=== PATIENT | male | born 1970 | race Hispanic/Latino ===

== ENCOUNTER 2018-12-31 19:12 | Emergency (ER) | payer BC ==
[2018-12-31 20:11] LABS: Absolute Lymphocytes (CBC) 1.1 K/uL (0.7-4.9); Basophils % 0.3 % (0-1.3); Eosinophils % 0.9 % (0-4.4); Hematocrit 50.4 % (39.6-49.0); Lymphocytes % 15.8 % (15.3-44.8); MPV 9.1 fL (7.6-11.3); Monocytes % 6.7 % (3.3-12.3); RBC Red Blood Cell Count 5.56 M/uL (4.33-5.43)
[2018-12-31 20:12] LABS: Protime INR 1.03
[2018-12-31 20:29] LABS: ALT/SGPT 29 U/L (12-78); AST/SGOT 12 U/L (15-37); Albumin 3.5 g/dL (3.4-5.0); Alkaline Phosphatase 77 U/L (45-117); BUN Blood Urea Nitrogen 14 mg/dL (7-18); Bicarbonate 31 mmol/L (21-32); Bilirubin Direct 0.1 mg/dL (0-0.2); Bilirubin Total 0.5 mg/dL (0.2-1.0); Glucose Level 191 mg/dL (74-106); Magnesium 2.5 mg/dL (1.8-2.4); NT PRO-BNP 14 pg/mL (<125); Potassium 3.6 mmol/L (3.5-5.1); Protein, Total 6.9 g/dL (6.4-8.2); Sodium Level 146 mmol/L (136-145); Troponin (Emerg Dept Use Only) < 0.02 ng/mL (0.0-0.045)
--- NOTE | 2018-12-31 20:47 | RAD REPORT ---
EXAM DESCRIPTION: RAD - Chest Single View - 12/31/2018 8:04 pm CLINICAL HISTORY: Chest pain COMPARISON: March 2015 TECHNIQUE: AP portable chest image was obtained 1956 hours . FINDINGS: Low lung volumes are noted. This accentuates baseline interstitial pattern. No peripheral mass or consolidation. Heart and vasculature are normal. No measurable pleural effusion and no pneumo thorax. No acute bony abnormality seen. No acute aortic findings suspected. IMPRESSION: Limited shallow inspiration film not substantially different from comparison. Shallow inspiration and baseline lung disease could mask early interstitial edema or infiltrate.
[2018-12-31] MEDS ORDERED: NA CHLORIDE 0.9% 1,000 ML ONE (21:41)
[2018-12-31] MEDS ORDERED: ASPIRIN 81 MG CHEWABLE TABLET ONE (21:41)
--- NOTE | 2018-12-31 23:29 | EDPHYS ---
Physician Documentation [facility] Name: Bello Elkins Age: 48 yrs Sex: Male : 1970 Arrival Date: 12/31/2018 Time: 19:16 Bed 19 Private MD: Hosea Ayers V ED Physician Hayes Robertson HPI: 12/31 20:15 This 48 yrs old Male presents to ER via Ambulatory with complaints of Chest cp Pain, Palpitations, Arm Pain. 20:15 The patient or guardian reports chest pain that is located primarily in the anterior cp chest wall, left. 20:15 Onset: past few months. The pain does not radiate. Associated signs and symptoms: cp Pertinent positives: palpitations, Pertinent negatives: abdominal pain, cough, lower extremity pain, lower extremity swelling, shortness of breath, syncope, vomiting. 20:15 The chest pain is described as aching. Duration: The patient or guardian reports cp multiple episodes, that are intermittent, with no pattern. 20:15 Modifying factors: The symptoms are alleviated by nothing. the symptoms are aggravated cp by nothing. Severity of pain: in the emergency department the pain is unchanged despite home interventions. Historical: - Allergies: 19:22 No Known Allergies; la1 - PMHx: 19:22 GERD; Hernia; la1 - Immunization history:: Adult Immunizations up to date. - Social history:: Smoking status: Patient/guardian denies using tobacco. - Ebola Screening: : No symptoms or risks identified at this time. ROS: 20:20 Constitutional: Negative for body aches, chills, fever, poor PO intake. cp 20:20 Eyes: Negative for injury, pain, redness, and discharge. cp 20:20 ENT: Negative for drainage from ear(s), ear pain, sore throat, difficulty swallowing, difficulty handling secretions. 20:20 Cardiovascular: Positive for chest pain, palpitations, Negative for edema. 20:20 Respiratory: Negative for cough, shortness of breath, wheezing. 20:20 Abdomen/GI: Negative for abdominal pain, nausea, vomiting, and diarrhea, black/tarry stool, rectal bleeding. 20:20 Back: Negative for pain at rest, pain with movement, radiated pain. 20:20 : Negative for urinary symptoms. 20:20 Skin: Negative for rash. 20:20 Neuro: Negative for altered mental status, dizziness, headache, syncope, weakness. 20:20 All other systems are negative. Exam: 19:30 ECG was reviewed by the Attending Physician. cp 20:25 Constitutional: The patient appears in no acute distress, alert, awake, comfortable, cp non-diaphoretic, non-toxic, well developed, well nourished. 20:25 Head/Face: Normocephalic, atraumatic. Eyes: Pupils equal round and reactive to light, cp extra-ocular motions intact. Lids and lashes normal. Conjunctiva and sclera are non-icteric and not injected. Cornea within normal limits. Periorbital areas with no swelling, redness, or edema. ENT: Nares patent. No nasal discharge, no septal abnormalities noted. Tympanic membranes are normal and external auditory canals are clear. Oropharynx with no redness, swelling, or masses, exudates, or evidence of obstruction, uvula midline. Mucous membranes moist. Chest/axilla: Normal chest wall appearance and motion. Nontender with no deformity. No lesions are appreciated. Cardiovascular: Regular rate and rhythm with a normal S1 and S2. No gallops, murmurs, or rubs. Normal PMI, no JVD. No pulse deficits. Respiratory: Lungs have equal breath sounds bilaterally, clear to auscultation and percussion. No rales, rhonchi or wheezes noted. No increased work of breathing, no retractions or nasal flaring. Abdomen/GI: Soft, non-tender, with normal bowel sounds. No distension or tympany. No guarding or rebound. No evidence of tenderness throughout. Back: No spinal tenderness. No costovertebral tenderness. Full range of motion. Neuro: Awake and alert, GCS 15, oriented to person, place, time, and situation. Cranial nerves II-XII grossly intact. Motor strength 5/5 in all extremities. Sensory grossly intact. Cerebellar exam normal. Normal gait. 20:25 Skin: no rash present. 23:25 ECG was reviewed by the Attending Physician. cp Vital Signs: 19:22 BP 134 / 100; Pulse 97; Resp 16; Temp 98.1; Pulse Ox 98% on R/A; Weight 81.65 kg; la1 Height 5 ft. 11 in. (180.34 cm); 20:30 BP 123 / 89; Pulse 90; Resp 16; Pulse Ox 99% ; rr5 21:30 BP 134 / 84; Pulse 71; Resp 17; Temp 98.2; Pulse Ox 99% ; rr5 22:15 BP 131 / 80; Pulse 75; Resp 16; Pulse Ox 99% ; Pain 2/10; rr5 23:55 BP 129 / 85; Pulse 76; Resp 17; Temp 98.1; Pulse Ox 99% ; Pain 0/10; tl1 19:22 Body Mass Index 25.10 (81.65 kg, 180.34 cm) la1 MDM: 19:55 Patient medically screened. cp 23:25 The patient was given aspirin in the Emergency Department. cp 23:25 Differential diagnosis: abnormal EKG, acute myocardial infarction, acute pericarditis, cp pleurisy, pneumonia, pneumothorax, pulmonary embolus, stable angina, thoracic aortic disection, unstable angina. Data reviewed: vital signs, nurses notes, lab test result(s), EKG, radiologic studies, plain films. 12/31 19:21 Order name: Basic Metabolic Panel; Complete Time: 21:13 w 12/31 21:13 Interpretation: Normal except: NA 146; CL 110; GLUC 191; GFR 76. cp 12/31 19:21 Order name: CBC with Diff; Complete Time: 21:13 snw 12/31 19:21 Order name: LFT's; Complete Time: 21:13 snw 12/31 19:21 Order name: Magnesium; Complete Time: 21:13 snw 12/31 19:21 Order name: NT PRO-BNP; Complete Time: 21:13 snw 12/31 19:21 Order name: PT-INR; Complete Time: 21:13 w 12/31 19:21 Order name: Troponin (emerg Dept Use Only); Complete Time: 21:13 snw 12/31 19:21 Order name: XRAY Chest (1 view); Complete Time: 21:13 snw 12/31 19:21 Order name: EKG; Complete Time: 19:23 snw 12/31 19:21 Order name: Cardiac monitoring; Complete Time: 19:38 snw 12/31 22:32 Order name: EKG; Complete Time: 22:33 cp 12/31 22:32 Order name: Troponin I; Complete Time: 23:24 cp 12/31 19:21 Order name: EKG - Nurse/Tech; Complete Time: 19:38 snw 12/31 19:21 Order name: IV Saline Lock; Complete Time: 20:06 snw 12/31 19:21 Order name: Labs collected and sent; Complete Time: 20:06 snw 12/31 19:21 Order name: O2 Per Protocol; Complete Time: 20:06 snw 12/31 19:21 Order name: O2 Sat Monitoring; Complete Time: 20:06 snw 12/31 22:32 Order name: EKG - Nurse/Tech; Complete Time: 23:57 cp EC:30 Rate is 97 beats/min. Rhythm is regular. [place] interval is normal. QRS interval is normal. cp QT interval is normal. Interpreted by me. Reviewed by me. 23:25 Rate is 72 beats/min. Rhythm is regular. [place] interval is normal. QRS interval is normal. cp QT interval is normal. T waves are Inverted in lead III. Interpreted by me. Reviewed by me. Administered Medications: 21:40 Drug: NS 0.9% 1000 ml Route: IV; Rate: 1 bolus; Site: left forearm; rr5 23:54 Follow up: IV Status: Completed infusion; IV Intake: 1000ml tl1 21:41 Drug: Aspirin Chewable Tablet 324 mg Route: PO; rr5 23:55 Follow up: Response: No adverse reaction; No change in condition tl1 Disposition: 01/01 04:02 Co-signature as Attending Physician, Hayes Robertson MD. Disposition: 12/31/18 23:28 Discharged to Home. Impression: Chest pain, unspecified, Palpitations. - Condition is Stable. - Discharge Instructions: Nonspecific Chest Pain, Palpitations, Aspirin and Your Heart. - Medication Reconciliation Form, Thank You Letter, Antibiotic Education, Prescription Opioid Use form. - Follow up: Vicente Siu MD; When: 2 - 3 days; Reason: Recheck today's complaints. - Problem is an ongoing problem. - Symptoms have improved. Signatures: Dispatcher [employer] EDMS Yelitza Wright FNP-C DIRECTORY CLERK-Csnw Julien Al RN RN la1 Monique Hernández RN RN tl1 Swapnil Leon, PA PA Hayes Robertson MD MD Ryan Souza RN RN rr5 Corrections: (The following items were deleted from the chart) 12/31 23:57 23:28 12/31/2018 23:28 Discharged to Home. Impression: Chest pain, unspecified; tl1 Palpitations. Condition is Stable. Forms are Medication Reconciliation Form, Thank You Letter, Antibiotic Education, Prescription Opioid Use. Follow up: Vicente Siu; When: 2 - 3 days; Reason: Recheck today's complaints. Problem is an ongoing problem. Symptoms have improved. cp
--- NOTE | 2018-12-31 23:29 | ER ---
Nurse's Notes [facility] Name: Bello Elkins Age: 48 yrs Sex: Male : 1970 Arrival Date: 12/31/2018 Time: 19:16 Bed 19 Private MD: Hosea Ayers V Diagnosis: Chest pain, unspecified;Palpitations Presentation: 12/31 19:21 Presenting complaint: Patient states: Chest pain for the last few months, increasing in la1 severity in the last couple weeks. Transition of care: patient was not received from another setting of care. Onset of symptoms was December 31, 2018. Risk Assessment: Do you want to hurt yourself or someone else? Patient reports no desire to harm self or others. Initial Sepsis Screen: Does the patient meet any 2 criteria? No. Patient's initial sepsis screen is negative. Does the patient have a suspected source of infection? No. Patient's initial sepsis screen is negative. Care prior to arrival: None. 19:21 Method Of Arrival: Ambulatory la1 19:21 Acuity: VEENA 3 la1 Historical: - Allergies: 19:22 No Known Allergies; la1 - PMHx: 19:22 GERD; Hernia; la1 - Immunization history:: Adult Immunizations up to date. - Social history:: Smoking status: Patient/guardian denies using tobacco. - Ebola Screening: : No symptoms or risks identified at this time. Screenin:30 Abuse screen: Denies threats or abuse. Denies injuries from another. Nutritional rr5 screening: No deficits noted. Tuberculosis screening: No symptoms or risk factors identified. Fall Risk IV access (20 points). Total Kovacs Fall Scale indicates No Risk (0-24 pts). Assessment: 19:30 General: Appears in no apparent distress. uncomfortable, Behavior is calm, cooperative, rr5 appropriate for age. Pain: Complains of pain in left chest Pain does not radiate. Pain currently is 5 out of 10 on a pain scale. Quality of pain is described as aching, Pain began gradually, Is intermittent. 19:30 Neuro: Level of Consciousness is awake, alert, obeys commands, Oriented to person, rr5 place, time, situation, Appropriate for age. Cardiovascular: Reports chest pain, palpitations, Capillary refill < 3 seconds Patient's skin is warm and dry. Respiratory: Airway is patent Respiratory effort is even, unlabored, Respiratory pattern is regular, symmetrical. GI: No signs and/or symptoms were reported involving the gastrointestinal system. : No signs and/or symptoms were reported regarding the genitourinary system. EENT: No signs and/or symptoms were reported regarding the EENT system. Derm: Skin is intact, Skin temperature is warm. Musculoskeletal: Circulation, motion, and sensation intact. Capillary refill < 3 seconds, Range of motion: intact in all extremities. 20:25 Reassessment: Patient appears in no apparent distress at this time. Patient and/or rr5 family updated on plan of care and expected duration. Pain level reassessed. Patient is alert, oriented x 3, equal unlabored respirations, skin warm/dry/pink. awaiting for results. 21:25 Reassessment: Patient appears in no apparent distress at this time. Patient and/or rr5 family updated on plan of care and expected duration. Pain level reassessed. Patient is alert, oriented x 3, equal unlabored respirations, skin warm/dry/pink. ED provider ordered medications and he spoke to patient and tower erector for the plan of care. 22:30 Reassessment: Patient appears in no apparent distress at this time. Patient and/or rr5 family updated on plan of care and expected duration. Pain level reassessed. Patient is alert, oriented x 3, equal unlabored respirations, skin warm/dry/pink. awaiting for review. Patient states feeling better. Patient states symptoms have improved. 23:30 Reassessment: Patient and/or family updated on plan of care and expected duration. Pain cr4 level reassessed. Patient is alert, oriented x 3, equal unlabored respirations, skin warm/dry/pink. Patient states feeling better. Vital Signs: 19:22 BP 134 / 100; Pulse 97; Resp 16; Temp 98.1; Pulse Ox 98% on R/A; Weight 81.65 kg; la1 Height 5 ft. 11 in. (180.34 cm); 20:30 BP 123 / 89; Pulse 90; Resp 16; Pulse Ox 99% ; rr5 21:30 BP 134 / 84; Pulse 71; Resp 17; Temp 98.2; Pulse Ox 99% ; rr5 22:15 BP 131 / 80; Pulse 75; Resp 16; Pulse Ox 99% ; Pain 2/10; rr5 23:55 BP 129 / 85; Pulse 76; Resp 17; Temp 98.1; Pulse Ox 99% ; Pain 0/10; tl1 19:22 Body Mass Index 25.10 (81.65 kg, 180.34 cm) la1 ED Course: 19:16 Patient arrived in ED. mr 19:16 Hosea Ayers MD is Private Physician. mr 19:21 Arm band placed on left wrist. EKG completed in triage. Results shown to MD. la1 19:21 Patient has correct armband on for positive identification. Placed in gown. Bed in low tl1 position. Side rails up X 1. Adult w/ patient. quality assurance monitor final on. Pulse ox on. NIBP on. 19:22 Triage completed. la1 19:33 Swapnil Leon PA is PHCP. cp 19:34 Hayes Robertson MD is Attending Physician. cp 19:37 Ryan Souza, WALE is Primary Nurse. rr5 19:55 Inserted saline lock: 20 gauge in left forearm, using aseptic technique. ,using aseptic rr5 technique. inserted by computer system technician meno Blood collected. 19:55 No provider procedures requiring assistance completed. Patient maintains SpO2 rr5 saturation greater than 95% on room air. 20:04 XRAY Chest (1 view) In Process Unspecified. EDMS 23:27 Vicente Siu MD is Referral Physician. cp 23:53 IV discontinued, intact, bleeding controlled, No redness/swelling at site. Pressure tl1 dressing applied. Administered Medications: 21:40 Drug: NS 0.9% 1000 ml Route: IV; Rate: 1 bolus; Site: left forearm; rr5 23:54 Follow up: IV Status: Completed infusion; IV Intake: 1000ml tl1 21:41 Drug: Aspirin Chewable Tablet 324 mg Route: PO; rr5 23:55 Follow up: Response: No adverse reaction; No change in condition tl1 Intake: 23:54 IV: 1000ml; Total: 1000ml. tl1 Outcome: 23:28 Discharge ordered by . cp 23:53 Discharged to home ambulatory, with family. tl1 23:53 Condition: good 23:53 Discharge instructions given to patient, family, Instructed on discharge instructions, follow up and referral plans. Demonstrated understanding of instructions, follow-up care. 23:57 Patient left the ED. tl1 Signatures: Dispatcher [employer] Cherise Gallegos mr RamosRosalie, RN RN cr4 Julien Al RN RN la1 Monique Hernández, RN RN tl1 Swapnil Leon PA PA cp Roque, Raymond, RN RN rr5
--- NOTE | 2019-01-01 09:57 | EKG ---
Test Date: 2018-12-31 Test Time: 23:20:09 Mail Clerk: WILLIE MEASUREMENT RESULTS: Intervals: Rate: 72 RI: 198 QRSD: 92 QT: 378 QTc: 413 [place]: P: 21 RI: 198 QRS: -17 T: 7 INTERPRETIVE STATEMENTS: Normal sinus rhythm Minimal voltage criteria for LVH, may be normal variant Borderline ECG Compared to ECG 12/31/2018 19:23:44 Left ventricular hypertrophy now present Electronically Signed On 01-01-19 09:56:14 CDT by Vicente Siu
--- NOTE | 2019-01-01 09:58 | EKG ---
Test Date: 2018-12-31 Test Time: 19:23:44 Senior Sharepoint Architect: JUAN RAMON MEASUREMENT RESULTS: Intervals: Rate: 97 FL: 186 QRSD: 96 QT: 354 QTc: 449 [place]: P: 27 FL: 186 QRS: -21 T: 12 INTERPRETIVE STATEMENTS: Normal sinus rhythm Normal ECG Compared to ECG 04/26/1996 17:51:00 No significant changes Electronically Signed On 01-01-19 09:56:52 CDT by Vicente Siu
== END 2018-12-31 23:57 | disposition home or self-care (01) ==
LOC: ER 19:12
DX: R00.2 Palpitations (principal)
CPT/HCPCS: 36415; 71045; 80048; 80076; 83735; 83880; 84484; 85025; 85610; 93005; 96360; 96361; 99285; J7030

== ENCOUNTER 2020-03-12 21:33 | Emergency (ER) | payer BC, SELFPAY ==
[2020-03-12 22:46] LABS: Absolute Lymphocytes (CBC) 1.2 K/uL (0.7-4.9); Basophils % 0.4 % (0-1.3); Hematocrit 45.1 % (39.6-49.0); Lymphocytes % 17.7 % (15.3-44.8); MPV 9.6 fL (7.6-11.3); RBC Red Blood Cell Count 5.11 M/uL (4.33-5.43)
[2020-03-12 22:57] LABS: Potassium 3.4 mmol/L (3.5-5.1)
[2020-03-12 23:45] LABS: Urine Blood 2+ (NEG); Urine Glucose TRACE (NEG); Urine Protein NEGATIVE (NEG); Urine Specific Gravity 1.025 (1.005-1.030); Urine pH 5.5 (5.0-7.0)
--- NOTE | 2020-03-12 23:46 | ER ---
Nurse's Notes [facility] Name: Bello Elkins Age: 49 yrs Sex: Male : 1970 Arrival Date: 03/12/2020 Time: 21:33 Bed 24 Private MD: Diagnosis: Hydronephrosis with renal and ureteral calculous obstruction;Type 2 diabetes mellitus with hyperglycemia Presentation: 03/12 21:52 Chief complaint: Patient states: Left lower back pain since Thursday. No trauma or ll1 falls. Denies urinary problems. Coronavirus screen: Client denies travel out of the [place] in the last 14 days. At this time, the client does not indicate any symptoms associated with coronavirus-19. Ebola Screen: Patient denies travel to an Ebola-affected area in the 21 days before illness onset. Initial Sepsis Screen: Does the patient meet any 2 criteria? HR > 90 bpm. Yes. Risk Assessment: Do you want to hurt yourself or someone else? Patient reports no desire to harm self or others. Onset of symptoms was March 10, 2020. 21:52 Method Of Arrival: Ambulatory 1 21:52 Acuity: VEENA 3 bb 22:11 Initial Sepsis Screen: Does the patient have a suspected source of infection? No. bb Patient's initial sepsis screen is negative. Historical: - Allergies: 21:54 No Known Allergies; ll1 - PMHx: 21:54 GERD; Hernia; ll1 - Immunization history:: Flu vaccine is not up to date. - Social history:: Smoking status: Patient denies any tobacco usage or history of. Screenin:09 Abuse screen: Denies threats or abuse. Nutritional screening: No deficits noted. bb Tuberculosis screening: No symptoms or risk factors identified. Fall Risk None identified. Assessment: 22:09 General: Appears in no apparent distress. uncomfortable, Behavior is calm, cooperative. bb Pain: Complains of pain in left flank. Neuro: Level of Consciousness is awake, alert, obeys commands, Oriented to person, place, time, situation. Cardiovascular: No deficits noted. Respiratory: Respiratory effort is even, unlabored, Respiratory pattern is regular. GI: Reports left flank pain. : Denies burning with urination, inability to void. Derm: Skin is pink, warm \T\ dry. Musculoskeletal: Circulation, motion, and sensation intact. 22:30 Reassessment: pt to CT via wheelchair accompanied by voice intercept technician. bb 22:53 Reassessment: Patient is alert, oriented x 3, equal unlabored respirations, skin bb warm/dry/pink. pt states pain is manageable he does not have anyone to pick him up. 03/13 00:05 Reassessment: Patient is alert, oriented x 3, equal unlabored respirations, skin bb warm/dry/pink. pt states pain is tolerable 3/10 verbalized understanding of and agrees to plan of care discharge instructions given pt ambulated with steady gait to exit. Vital Signs: 03/12 21:52 BP 148 / 103; Pulse 100; Resp 18; Temp 98.1; Pulse Ox 97% ; Pain 10/10; ll1 22:54 BP 154 / 98; Pulse 101; Resp 16 S; Pulse Ox 97% on R/A; Pain 6/10; bb 23:59 BP 137 / 97; Pulse 98; Resp 17; Temp 98.8; Pulse Ox 98% on R/A; Pain 2/10; ar5 ED Course: 21:33 Patient arrived in ED. cl3 21:54 Triage completed. ll1 21:54 Arm band placed on Patient placed in an exam room, on a stretcher. ll1 21:56 Sean Rubio PA is PHCP. jr8 21:56 Asaf Shirley MD is Attending Physician. jr8 22:09 Dana Martin, WALE is Primary Nurse. bb 22:09 Patient has correct armband on for positive identification. Placed in gown. Bed in low bb position. Call light in reach. Side rails up X 1. Pulse ox on. NIBP on. Warm blanket given. 22:10 Urine collected: clean catch specimen, clear. ar5 22:26 Inserted saline lock: 20 gauge in right forearm, using aseptic technique. Blood ar5 collected. 23:01 CT Stone Protocol In Process Unspecified. EDMS 23:45 Bello Cordova MD is Referral Physician. jr8 23:45 Hosea Ayers MD is Referral Physician. jr8 03/13 00:06 No provider procedures requiring assistance completed. IV discontinued, intact, bb bleeding controlled, No redness/swelling at site. Pressure dressing applied. Administered Medications: 03/12 23:55 Drug: TORadol - Ketorolac 15 mg Route: IVP; Site: right forearm; bb 03/13 00:05 Follow up: Response: No adverse reaction bb Outcome: 03/12 23:46 Discharge ordered by MD. pisano 03/13 00:06 Discharged to home ambulatory. bb Condition: stable Discharge instructions given to patient, Instructed on discharge instructions, follow up and referral plans. medication usage, Demonstrated understanding of instructions, follow-up care, medications, Prescriptions given X 4. 00:07 Patient left the ED. bb Signatures: Dispatcher [employer] EDDana Alfonso RN RN bb Sean Rubio PA PA jr8 Mary Ann Deshpande ar5 Francesca Giraldo cl3 Brannon Giraldo RN RN ll1 Corrections: (The following items were deleted from the chart) 03/12 22:14 21:52 Acuity: VEENA 4 ll1 bb 22:28 22:27 Urine collected: clean catch specimen, clear, ar5 ar5
--- NOTE | 2020-03-12 23:46 | EDPHYS ---
Physician Documentation [facility] Name: Bello Elkins Age: 49 yrs Sex: Male : 1970 Arrival Date: 03/12/2020 Time: 21:33 Bed 24 Private MD: ED Physician Asaf Shirley HPI: 03/12 22:55 This 49 yrs old Male presents to ER via Ambulatory with complaints of Low Back jr8 Pain. 22:55 The patient presents with pain that is acute. The symptoms are located in the low back. jr8 The pain does not radiate. The problem was sustained from unknown cause. Onset: The symptoms/episode began/occurred acutely, 2 day(s) ago. Modifying factors: The patient symptoms are alleviated by nothing, the patient symptoms are aggravated by nothing. Associated signs and symptoms: The patient has no apparent associated signs or symptoms. Severity of symptoms: At their worst the symptoms were moderate, in the emergency department the symptoms are unchanged. The patient has not experienced similar symptoms in the past. The patient has not recently seen a physician. Historical: - Allergies: 21:54 No Known Allergies; ll1 - PMHx: 21:54 GERD; Hernia; ll1 - Immunization history:: Flu vaccine is not up to date. - Social history:: Smoking status: Patient denies any tobacco usage or history of. ROS: 22:55 Eyes: Negative for injury, pain, redness, and discharge, ENT: Negative for injury, jr8 pain, and discharge, Neck: Negative for injury, pain, and swelling, Cardiovascular: Negative for chest pain, palpitations, and edema, Respiratory: Negative for shortness of breath, cough, wheezing, and pleuritic chest pain, Abdomen/GI: Negative for abdominal pain, nausea, vomiting, diarrhea, and constipation, MS/Extremity: Negative for injury and deformity, Skin: Negative for injury, rash, and discoloration, Neuro: Negative for headache, weakness, numbness, tingling, and seizure. 22:55 Back: Positive for flank pain, on the left. Exam: 22:55 Eyes: Pupils equal round and reactive to light, extra-ocular motions intact. Lids and jr8 lashes normal. Conjunctiva and sclera are non-icteric and not injected. Cornea within normal limits. Periorbital areas with no swelling, redness, or edema. ENT: Nares patent. No nasal discharge, no septal abnormalities noted. Tympanic membranes are normal and external auditory canals are clear. Oropharynx with no redness, swelling, or masses, exudates, or evidence of obstruction, uvula midline. Mucous membranes moist. Neck: Trachea midline, no thyromegaly or masses palpated, and no cervical lymphadenopathy. Supple, full range of motion without nuchal rigidity, or vertebral point tenderness. No Meningismus. Cardiovascular: Regular rate and rhythm with a normal S1 and S2. No gallops, murmurs, or rubs. Normal PMI, no JVD. No pulse deficits. Respiratory: Lungs have equal breath sounds bilaterally, clear to auscultation and percussion. No rales, rhonchi or wheezes noted. No increased work of breathing, no retractions or nasal flaring. Abdomen/GI: Soft, non-tender, with normal bowel sounds. No distension or tympany. No guarding or rebound. No evidence of tenderness throughout. Back: No spinal tenderness. No costovertebral tenderness. Full range of motion. Skin: Warm, dry with normal turgor. Normal color with no rashes, no lesions, and no evidence of cellulitis. MS/ Extremity: Pulses equal, no cyanosis. Neurovascular intact. Full, normal range of motion. Neuro: Awake and alert, GCS 15, oriented to person, place, time, and situation. Cranial nerves II-XII grossly intact. Motor strength 5/5 in all extremities. Sensory grossly intact. Cerebellar exam normal. Normal gait. Vital Signs: 21:52 BP 148 / 103; Pulse 100; Resp 18; Temp 98.1; Pulse Ox 97% ; Pain 10/10; ll1 22:54 BP 154 / 98; Pulse 101; Resp 16 S; Pulse Ox 97% on R/A; Pain 6/10; bb 23:59 BP 137 / 97; Pulse 98; Resp 17; Temp 98.8; Pulse Ox 98% on R/A; Pain 2/10; ar5 MDM: 22:11 Patient medically screened. jr8 22:55 Data reviewed: vital signs, nurses notes, lab test result(s), radiologic studies, CT jr8 scan. Data interpreted: Pulse oximetry: on room air is 97 %. Interpretation: normal. Counseling: I had a detailed discussion with the patient and/or guardian regarding: the historical points, exam findings, and any diagnostic results supporting the discharge/admit diagnosis, lab results, radiology results, the need for outpatient follow up, a urologist, to return to the emergency department if symptoms worsen or persist or if there are any questions or concerns that arise at home. 23:44 ED course: Detailed discussion with patient about renal stone along with incidental jr8 finding of diabetes. Need for f/u with urology and IM. Patient good with pain and knows to come back if he were to worsen or run fever . 03/12 22:11 Order name: Urine Dipstick--Ancillary (enter results); Complete Time: 23:46 tt3 03/12 22:14 Order name: Basic Metabolic Panel; Complete Time: 23:00 jr8 03/12 22:14 Order name: CBC with Diff; Complete Time: 22:57 jr8 03/12 22:14 Order name: IV Saline Lock; Complete Time: 22:20 jr8 03/12 22:14 Order name: CT Stone Protocol [facility] 03/12 22:14 Order name: Labs collected and sent; Complete Time: 22:20 jr8 Administered Medications: 23:55 Drug: TORadol - Ketorolac 15 mg Route: IVP; Site: right forearm; bb 03/13 00:05 Follow up: Response: No adverse reaction bb Disposition: 06:19 Co-signature as Attending Physician, Asaf Shirley MD I agree with the assessment and 4 plan of care. Disposition: 03/12/20 23:46 Discharged to Home. Impression: Hydronephrosis with renal and ureteral calculous obstruction, Type 2 diabetes mellitus with hyperglycemia. - Condition is Stable. - Discharge Instructions: Type 2 Diabetes Mellitus, Diagnosis, Adult, Hyperglycemia, Kidney Stones, Hydronephrosis. - Prescriptions for Cipro 500 mg Oral Tablet - take 1 tablet by ORAL route every 12 hours for 7 days; 14 tablet. Tylenol- Codeine #3 300-30 mg Oral Tablet - take 2 tablets by ORAL route every 6 hours As needed; 20 tablet. Zofran 4 mg Oral Tablet - take 1 tablet by ORAL route every 12 hours As needed; 20 tablet. Flomax 0.4 mg Oral Capsule, Sust. Release 24 hr - take 1 capsule by ORAL route once daily 1/2 hour following the same meal each day; 30 capsule. - Medication Reconciliation Form, Thank You Letter, Antibiotic Education, Prescription Opioid Use form. - Follow up: Bello Cordova MD; When: 5 - 6 days; Reason: Recheck today's complaints, Continuance of care, Re-evaluation by your physician. Follow up: Hosea Ayers MD; When: 2 - 3 days; Reason: Recheck today's complaints, Continuance of care, Re-evaluation by your physician. - Problem is new. - Symptoms have improved. Signatures: Dispatcher [employer] EDMS Dana Martin RN RN bb Sean Rubio PA PA jr8 Asaf Shirley MD MD tw4 Brannon Giraldo RN RN ll1 Corrections: (The following items were deleted from the chart) 00:07 03/12 23:46 03/12/2020 23:46 Discharged to Home. Impression: Hydronephrosis with renal bb and ureteral calculous obstruction; Type 2 diabetes mellitus with hyperglycemia. Condition is Stable. Forms are Medication Reconciliation Form, Thank You Letter, Antibiotic Education, Prescription Opioid Use. Follow up: Bello Cordova; When: 5 - 6 days; Reason: Recheck today's complaints, Continuance of care, Re-evaluation by your physician. Follow up: Hosea Ayers; When: 2 - 3 days; Reason: Recheck today's complaints, Continuance of care, Re-evaluation by your physician. Problem is new. Symptoms have improved. jr8
[2020-03-13] MEDS ORDERED: KETOROLAC 30 MG/ML INJ ONE (00:10)
[2020-03-13 00:24] VITALS: BP 137/97; TEMP 98.8; O2SAT 98
--- NOTE | 2020-03-13 11:14 | RAD REPORT ---
EXAM DESCRIPTION: CT - Stone Protocol - 03/13/2020 7:59 am CLINICAL HISTORY: Flank pain; Hematuria TECHNIQUE: Contiguous axial images obtained through the abdomen and pelvis without IV contrast. Taylor nal and sagittal reformatted images were provided. This exam was performed according to our departmental dose-optimization program, which includes autom ated exposure control, adjustment of the mA and/or kV according to patient size and/or use of iterati ve reconstruction technique. COMPARISON: None available for comparison. FINDINGS: Lung bases: Left basilar subsegmental atelectasis/pleural parenchymal scar. Small to moder ate hiatal hernia. Liver: Grossly unremarkable Gallbladder and biliary system: Unremarkable Pancreas: Grossly unremarkable Spleen: Grossly unremarkable Adrenals: Unremarkable Kidneys: Mild left hydroureteronephrosis with perinephric and periureteral stranding. 3 mm distal lef t ureteral calculus (series 201 image 125, series 202 image 76 and series 203 image 80). Bowel: Duodenal diverticulum. Colonic diverticula without adjacent inflammatory change. No obstructio n. No appreciable mucosal thickening. Appendix: Normal caliber appendix. No findings to suggest acute appendicitis. Urinary bladder: Unremarkable Reproductive: Unremarkable as visualized Lymph nodes: No pathologically enlarged lymph nodes. Peritoneum: No focal fluid collection. No free air. Vessels: No abdominal aortic aneurysm. Abdominal wall: Tiny fat-containing umbilical hernia. Small fat-containing left inguinal hernia. Bones: Multilevel spondylosis. No acute fracture. IMPRESSION: 1. Mildly obstructing 3 mm distal left ureteral calculus. 2. Other findings as above. Electronically signed by: Natan Ashley MD 03/12/2020 11:19 PM CDT Due to temporary technical issues with the PACS/Fluency reporting system, reports are being signed by the in house radiologist without review as a courtesy to ensure prompt reporting. The interpreting r adiologist is fully responsible for the content of the report.
== END 2020-03-13 00:07 | disposition home or self-care (01) ==
LOC: ER 21:33
DX: N13.2 Hydronephrosis with renal and ureteral calculous obstruction (principal); E11.65 Type 2 diabetes mellitus with hyperglycemia
CPT/HCPCS: 36415; 74176; 76377; 80048; 81003; 85025; 96374; 99284

== ENCOUNTER 2024-09-13 10:57 | Emergency (ER) | payer OTHER, SELFPAY ==
--- OUTSIDE RECORDS SUMMARY | 2024-09-13 11:05 | XMS REPORT | Clinical Summary ---
Author Name Unknown Organization [facility] Address [address] [place] [address] Care Team Providers Care 3Rd Grade Teacher Name Role Phone Hosea Ayers MD Unavailable [phone] Sergio Magallanes RN Unavailable Sulema Funk MD Primary Care Provider [phone] Courtney Marrufo MD Unavailable Jessica Tai APRN Unavailable [phone] Vidhi Davidson MD Unavailable Vidhi Davidson MD Primary Care Provider [phone] Allergies No known active allergies Medications * This document contains information received from the source organization and may not represent a complete record from that organization. acetaminophen (TYLENOL) 325 mg tablet Take 1 tablet (325 mg) by mouth as needed for mild pain. Active HYDROcodone-aceta minophen (NORCO) 5 mg-325 mg per tabletIndications :Neoplasm related pain (acute) (chronic) Take 1 tablet by mouth every 8 (eight) hours as needed for moderate pain. 90 tablet 172 Active Additional Information Patient not taking.Reason: No longer taking, Reported on 08/26/2024 oxyCODONE (ROXICODONE) 5 mg immediate release tablet TAKE ONE (1) TABLET(S) BY MOUTH EVERY 6 HOURS NEEDED. Active DULoxetine (CYMBALTA) 30 mg capsule TAKE ONE (1) CAPSULE(S) BY MOUTH DAILY WITH FOOD. Active acetaminophen-cod eine (TYLENOL with CODEINE #4) 300-60 mg per tablet 1 tablet. Active lidocaine-priloca ine (EMLA) 2.5-2.5% creamIndications: Pancreatic ductal adenocarcinoma Apply topically over port site about 30 minutes prior to access. 30 g 08/30/19 12:06 PM CDT Active gabapentin (NEURONTIN) 300 mg capsule Take 1 capsule (300 mg) by mouth at bedtime. 2024 Discontinued(T herapy completed) acetaminophen with codeine (TYLENOL-CODEINE #3 ORAL) Take 1 tablet by mouth daily. 2024 Discontinued MAGNESIUM GLYCINATE ORAL Take 1 tablet by mouth daily. 2024 Discontinued(T herapy completed) cholecalciferol, vitD3,/vit K2 (D3 PLUS K2 DOTS ORAL) Take 1 tablet by mouth daily. 2024 Discontinued(T herapy completed) b complex vitamins tablet Take 1 tablet by mouth daily. 2024 Discontinued(T herapy completed) omega-3 fatty acids/fish oil (OMEGA 3 FISH OIL ORAL) Take 1 tablet by mouth daily. 2024 Discontinued(T herapy completed) TURMERIC ORAL Take 1 tablet by mouth daily. curcumin 2024 Discontinued(T herapy completed) Bacillus coagulans (PROBIOTIC, B. COAGULANS, ORAL) Take 1 tablet by mouth daily. 2024 Discontinued(T herapy completed) HYDROcodone-aceta minophen (NORCO) 5 mg-325 mg per tabletIndications :Neoplasm related pain (acute) (chronic) Take 1 tablet by mouth every 6 (six) hours as needed for moderate pain. 28 tablet 2024 Discontinued(R eorder) Active Problems Patient Care Coordination No te Formatting of this note migh t be different from the original. Patient to consent to [id number] Sub Protocol A Consent is loaded and ready for MD and Patient to sign Call Rakesh ([phone]) for any questions. Problem Noted Date Diagnosed Date Encounter for preprocedural examination 08/27/19 Pancreatic ductal adenocarcinoma 08/24/2024 Cancer Staging:Clinical stage from 08/16/2024:Stage IV(cT4, cN2, pM1) - Signed by Vidhi Davidson MD on 08/26/2024 Encounters * This document contains information received from the source organization and may not represent a complete record from that organization. Date Type Department Care Team Description 09/13/2024 Documentation [facility] [address] [place] [address] Main dg, 7th [place] [address] Miguelito Sullivan, CRC 09/12/2024 8:30 AM CDT Hospital Encounter Interventional Radiology [address] [facility] [place], 4th [place] [address] Vidhi Davidson MD Martin, Kelia, PA Pancreatic ductal adenocarcinoma (Primary Dx) 09/12/2024 Orders Only Main Interventional Radiology [address] [place] [address], 3rd [place] [address] Shweta Blue PA-C Pancreatic ductal adenocarcinoma (Primary Dx) 09/12/2024 Orders Only [facility] [address] [place] [address], 7th [place] [address] Rakesh Squires RN 09/09/2024 9:20 AM CDT - 09/09/2024 11:59 PM CDT Hospital Encounter [facility] [address] [place] [address], 4th [place] [address] Courtney Marrufo MD Encounter for preprocedural examination (Primary Dx) Discharge Disposition: Home 09/09/2024 Orders Only [facility] [address] [place] [address], 7th Floor [place] [phone] Rakesh Squires RN Pancreatic ductal adenocarcinoma (Primary Dx) 09/09/2024 Documentation [facility] [address] [place] [address], 7th [place] [address] Miguelito Sullivan, CRC 09/07/2024 Orders Only [facility] [address] Main Bldg, 7th [place] [address] Rakesh Squires, RN Pancreatic ductal adenocarcinoma (Primary Dx) 09/07/2024 Orders Only [facility] [address] Main Bldg, 7th [place] [address] Rakesh Squires RN 09/07/2024 Orders Only [facility] [address] Main Bldg, 7th [place] [address] Toni Sparks MD 09/07/2024 Orders Only [facility] [address] Main Bldg, 7th [place] [address] Tamiko Elkins Pancreatic ductal adenocarcinoma (Primary Dx) 09/06/2024 3:03 PM CDT - 09/06/2024 11:59 PM CDT Hospital Encounter [facility] [address] Main Bldg, 6th [place] [address] You Briseno PA Pancreatic ductal adenocarcinoma Discharge Disposition: Home 09/06/2024 3:03 PM CDT - 09/06/2024 11:59 PM CDT Hospital Encounter [facility] Center [address] Main Bldg, 6th [place] [address] You Briseno PA Pancreatic ductal adenocarcinoma Discharge Disposition: Home 09/06/2024 3:02 PM CDT Hospital Encounter [facility] Center [address] Main Bldg, 6th [place] [address] You Briseno PA Pancreatic ductal adenocarcinoma Discharge Disposition: Home 09/06/2024 3:00 PM CDT - 09/06/2024 3:01 PM CDT Hospital Encounter [facility] [address] Main Bldg, 6th [place] [address] You Briseno PA Pancreatic ductal adenocarcinoma Discharge Disposition: Home 09/06/2024 12:45 PM CDT - 09/06/2024 2:59 PM CDT Hospital Encounter Clinical and Translational [facility] Main dg, 1st [place] [address] You Briseno PA Pancreatic ductal adenocarcinoma Discharge Disposition: Home 09/06/2024 12:00 PM CDT - 09/06/2024 12:44 PM CDT Hospital Encounter [facility] [address] [place] [address] [place] [address] You Briseno PA Pancreatic ductal adenocarcinoma Discharge Disposition: Home 09/06/2024 11:30 AM CDT Follow-Up [facility] [address] [place] [address] Main dg, 7th [place] [address] Vidhi Davidson MD Pancreatic ductal adenocarcinoma 09/06/2024 Orders Only [facility] [address] [place] [address] Main [facility], 7th [place] [address] Rakesh Squires RN Pancreatic ductal adenocarcinoma (Primary Dx) 09/06/2024 Travel 09/05/2024 Orders Only [facility] [address] [place] [address] Main [facility], 7th [place] [address] Rakesh Squires RN 09/01/2024 Orders Only [facility] [address] [place] [address] Main [facility], 7th [place] [address] You Briseno PA Pancreatic ductal adenocarcinoma (Primary Dx) 08/31/2024 8:30 AM CDT Telemedicine [facility] - Surgical Oncology [address] [place] [address] Main [facility], 7th Floor [place] [phone] You Briseno PA Mork, Maureen, MS, [facility] Pancreatic ductal adenocarcinoma 08/31/2024 Orders Only [facility] [address] [place] [address] Main [facility], 7th Floor [place] [phone] Rakesh Squires RN Pancreatic ductal adenocarcinoma (Primary Dx) 08/29/2024 10:00 AM CDT Anesthesia Event Interventional Radiology [address] [facility], 4th [place] [address] Olimpia Ramos MD 08/29/2024 7:11 AM CDT - 08/29/2024 11:59 PM CDT Hospital Encounter Interventional Radiology [address] [place] [address], [facility] [place] [address] You Briseno PA Dangler, Lori, MD Burhani, Yasser, CRNA Ahrar, Judy, MD Pancreatic ductal adenocarcinoma Discharge Disposition: Home 08/29/2024 Travel 08/26/2024 4:30 PM NUCLEAR CHEMISTRY TECHNICIAN POEM Appointments [facility] [address] [place] [address], [facility] [place] [address] Yodit Armenta PA Encounter for other preprocedural examination 08/26/2024 12:02 PM NUCLEAR CHEMISTRY TECHNICIAN - 08/26/2024 11:59 PM NUCLEAR CHEMISTRY TECHNICIAN Hospital Encounter [facility] [address] [place] [address] Yodit Armenta PA Encounter for other preprocedural examination Discharge Disposition: Home 08/26/2024 11:15 AM NUCLEAR CHEMISTRY TECHNICIAN - 08/26/2024 12:01 PM NUCLEAR CHEMISTRY TECHNICIAN Hospital Encounter Interventional Radiology [address] [place] [address], [facility] Floor [facility] [place] [address] Sulema Funk MD Futrell, Rachel K, PA-C Pancreatic ductal adenocarcinoma (Primary Dx); Encounter for preprocedural examination Discharge Disposition: Home 08/26/2024 Orders Only Interventional Radiology [address] [place] [address], [facility] [place] [address] Emy Rockwell PA-C Pancreatic ductal adenocarcinoma (Primary Dx) 08/24/2024 11:59 PM NUCLEAR CHEMISTRY TECHNICIAN Anesthesia Event [facility] [address] [place] [address], [address] [place] [address] [place] [address] Sagrario Vela RN 08/23/2024 1:45 PM NUCLEAR CHEMISTRY TECHNICIAN Ancillary Procedure MD Blood [place] [address] [address] You Briseno PA Pancreatic ductal adenocarcinoma 08/23/2024 11:15 AM NUCLEAR CHEMISTRY TECHNICIAN - 08/23/2024 11:59 PM NUCLEAR CHEMISTRY TECHNICIAN Hospital Encounter [facility] [address] [place] [address] [place] [address] You Briseno PA Pancreatic ductal adenocarcinoma Discharge Disposition: Home 08/23/2024 8:30 AM NUCLEAR CHEMISTRY TECHNICIAN Consult [facility] [address] [place] [address] Main [facility], 7th [place] [address] Vidhi Davidson MD Pancreatic ductal adenocarcinoma (Primary Dx); Moderate protein-calorie malnutrition 08/23/2024 Orders Only Main Interventional Radiology [address] [place] [address] [facility], 3rd [place] [address] Yodit Armenta PA Encounter for other preprocedural examination (Primary Dx) 08/23/2024 Travel 08/23/2024 Telephone [facility] [address] [place] [address] Main [facility], 7th [place] [address] Sergio Magallanes, WALE Follow-up 08/22/2024 Telephone [facility] [address] [place] [address] Main [facility], 7th [place] [address] Sergio Magallanes, WALE Follow-up (Transfer center update: IM to GI) 08/19/2024 Telephone Internal Medicine Center [address] [place] [address] Main [facility], 9th [place] [address] Cat Murillo, [employer] 08/19/2024 Telephone MDA ASKA PHYSICIAN [address] [place] [address] Bello Iglesias, [employer] Discharge Call 2024 Telephone MDA ASKMDA PHYSICIAN [address] [place] [address] Rakan Oropeza, [employer] 08/17/2024 Telephone [facility] [address] [place] [address] Main [facility], 4th [place] [address] Ruth Adair MD 08/17/2024 Orders Only [facility] [address] [place] [address] Main [facility], 4th [place] [address] Ruth Adair MD 08/16/2024 8:01 AM NUCLEAR CHEMISTRY TECHNICIAN - 08/16/2024 11:59 PM NUCLEAR CHEMISTRY TECHNICIAN Hospital Encounter Interventional Radiology [address] [place] [address], 4th [place] [address] Candace Pro APRN Awad, Ahmed, MD Liver mass; Lymphadenopathy Discharge Disposition: Home 08/16/2024 7:41 AM NUCLEAR CHEMISTRY TECHNICIAN - 08/16/2024 8:00 AM NUCLEAR CHEMISTRY TECHNICIAN Hospital Encounter [facility] [address] [place] [address] Jessica Tai APRN Encounter for preprocedural laboratory examination Discharge Disposition: Home 08/16/2024 Travel 08/15/2024 1:27 PM NUCLEAR CHEMISTRY TECHNICIAN - 08/15/2024 11:59 PM NUCLEAR CHEMISTRY TECHNICIAN Hospital Encounter MD Blood [address] [address] Sulema Funk MD Liu, Jessica, APRN Lesion of liver (Primary Dx); Encounter for other preprocedural examination Discharge Disposition: Home 08/15/2024 Refill [facility] [address] [place] [address], 4th [place] [address] Mitul Tee, RN Neoplasm related pain (acute) (chronic) 08/10/2024 8:00 AM NUCLEAR CHEMISTRY TECHNICIAN - 08/10/2024 11:59 PM NUCLEAR CHEMISTRY TECHNICIAN Hospital Encounter [facility] [address] [place] [address], [facility] [place] [address] Courtney Marrufo MD Discharge Disposition: Home 08/10/2024 8:00 AM NUCLEAR CHEMISTRY TECHNICIAN Hospital Encounter [facility] [address] [place] [address], 4th [place] [address] Courtney Marrufo MD Roldan, Carlos J., MD Chronic pain (Primary Dx); Neoplasm related pain (acute) (chronic); Cancer associated pain Discharge Disposition: Home 08/10/2024 Travel 08/03/2024 1:09 PM NUCLEAR CHEMISTRY TECHNICIAN - 08/03/2024 11:59 PM NUCLEAR CHEMISTRY TECHNICIAN Hospital Encounter [facility] [address] [place] [address], 4th [place] [address] Courtney Marrufo MD Cancer associated pain (Primary Dx); Neoplasm related pain (acute) (chronic) Discharge Disposition: Home 08/03/2024 Travel 08/02/2024 Orders Only Interventional Radiology [address] [facility], 4th [place] [address] Jessica Tai APRN Encounter for preprocedural laboratory examination (Primary Dx) 08/02/2024 Telephone Main Interventional Radiology [address] [facility] 3rd [place] [address] Salina Garcia MA 08/01/2024 Orders Only [facility] [address] [place] [address], 9th [place] [address] Sulema Funk MD Neoplasm related pain (acute) (chronic) (Primary Dx) 07/29/2024 7:35 AM NUCLEAR CHEMISTRY TECHNICIAN Ancillary Procedure [facility] [address] [facility] 2nd [place] [address] Candace Pro APRN Mass of pancreas; Liver mass; Lymphadenopathy 07/29/2024 Travel 07/28/2024 8:00 PM NUCLEAR CHEMISTRY TECHNICIAN Ancillary Procedure [facility] [address] [place] [address] Sulema Funk MD Cancer 07/28/2024 2:45 PM NUCLEAR CHEMISTRY TECHNICIAN - 07/28/2024 11:59 PM NUCLEAR CHEMISTRY TECHNICIAN Hospital Encounter [facility] [address] [place] [address] Sulema Funk MD Mass of pancreas; Liver mass; Abnormal finding on diagnostic imaging of other abdominal region including retroperitoneum; Type 2 diabetes mellitus with hyperglycemia Discharge Disposition: Home 07/28/2024 1:00 PM NUCLEAR CHEMISTRY TECHNICIAN Office Visit [facility] [address] [place] [address], 9th [place] [address] Sulema Funk MD Mass of pancreas (Primary Dx); Liver mass; Abnormal finding on diagnostic imaging of other abdominal region including retroperitoneum; Type 2 diabetes mellitus with hyperglycemia 07/28/2024 Orders Only [facility] [address] [place] [address], 9th [place] [address] Sulema Funk MD Mass of pancreas (Primary Dx) 07/28/2024 Travel 07/26/2024 Documentation [facility] [address] [place] [address], 7th [place] [address] Sergio Magallanes, WALE Follow-up (HCT to SOC) 07/25/2024 Orders Only [facility] [address] [place] [address], 9th [place] [address] Candace Pro APRN Mass of pancreas (Primary Dx); Liver mass; Lymphadenopathy 07/22/2024 12:00 PM NUCLEAR CHEMISTRY TECHNICIAN NPR MDA PATIENT ACCESS Sulema Funk MD 07/18/2024 Telephone [facility] [address] [place] [address], 7th [place] [address] Sergio Magallanes, WALE New Patient (Welcome to MD Blood, Clinical Review) 07/15/2024 Telephone [facility] [address] [place] [address], [facility] [place] [address] Sergio Magallanes RN after 09/14/2023 Medical History Medical History Date Comments Gastric reflux 20 years ago I have a hiatal hernia. Type 2 diabetes mellitus 2020 Blood s ugar controlled by diet Hiatal hernia 2024 Gastroesophageal reflux disease Family History Medical History Relation Name Comments Prostate cancer Father Damon Elkins Recently d iagnosed he is 76 and spread to his bones Lung cancer Maternal Grandfather Relation Name Status Comments Brother 1 Alive Brother 2 Alive Daughter 1 Alive Daughter 2 Alive Father Damon Elkins Alive Maternal Grandfather (Age 60s) Maternal Grandmother (Age 80s) Mother (Age 58) Niece/Nephew 1 Alive Niece/Nephew 2 Alive Other (Age 60s) Paternal Grandfather (Age 30s) Paternal Grandmother (Age 80s) Social History Tobacco Use Types Packs/Day Years Used Date Smoking Tobacco: Never Passive Smoke Exposure: Never Smokeless Tobacco: Never Tobacco Cessation:Counseling Given: No Alcohol Use Standard Drinks/Week Comments Not Currently 0 (1 standard drink = 0.6 oz pur e alcohol) Maybe one a month Sex and Gender Information Value Date Recorded Sex Assigned at Not on file Legal Sex Male 4:35 PM NUCLEAR CHEMISTRY TECHNICIAN Gender Identity Not on file Sexual Orientation Not on file Obstetrics History Last Filed Vital Signs Vital Sign Reading Time Taken Comments Blood Pressure 108/79 09/06/2024 11:43 AM CDT Pulse 98 09/06/2024 11:43 AM CDT Temperature 36.9 C (98.5 F) 09/06/2024 11:43 AM C DT Respiratory Rate 14 09/06/2024 11:43 AM CDT Oxygen Saturation 100% 09/06/2024 11:43 AM CDT Inhaled Oxygen Concentration - - Weight 62 kg (136 lb 9.6 oz) 09/06/2024 11:43 AM CDT Height 170 cm (5' 6.93") 07/28/2024 1:08 PM NUCLEAR CHEMISTRY TECHNICIAN Body Mass Index 21.44 07/28/2024 1:08 PM NUCLEAR CHEMISTRY TECHNICIAN Plan of Treatment Upcoming Encounters Date Type Department Care Team (Late st Contact Info) Description 09/14/2024 10:15 AM CDT Appointment MD Blood [facility] [address] [place], [place] [id number] Vidhi Davidson MD [facility] [place] [address] [email or web address] 09/14/2024 4:30 PM CDT POEM Appointments [facility] [address] [place] [address], 6th [place] [address] Shweta Blue PA-C [facility] [place], [place] [id number] [email or web address] 09/15/2024 6:15 AM CDT Appointment [facility] [address] [place] [address] Shweta Blue PA-C [facility] [place] [address] [email or web address] 09/15/2024 7:00 AM CDT Appointment Interventional Radiology [address] [facility], 4th [place] [address] oYu Briseno PA [facility] [place] [address] [email or web address] MD [address] [place] [phone] [email or web address] Marj Randall CRNA [facility] [place] [address] [email or web address] 09/16/2024 2:00 PM CDT Nutrition Clinical Nutrition For your Nutrition appointment location directions please call: You Briseno PA [address] [place] [phone] [email or web address] [address] [place] [id number] [email or web address] 10/06/2024 1:40 PM CDT Appointment Pain Management [facility] [address] [facility], 4th [place] [address] Courtney Marrufo MD [address] [place] [phone] [email or web address] Health Maintenance Due Date Last Done Comments Pneumococcal Vaccine: 50+ Years (1 of 2 - PCV) 990 COVID-19 Vaccine ( season) 2024 Influenza Vaccine (#1) 2024 Medical Devices Implanted Type Area Clinical Case Manager Device Identifier Shelf Expiration Date Model / Serial / Lot Harvey Dotson 8fr - [id number] Implanted:Qty : 1 on 08/29/2024 by Sanjuanita Hurtado MD at [facility] Implant Right: Chest [employer] [id number] 08/19/2025 [id number] / / [id number] Procedures Procedure Name Priority Date/Time Associated Diagnosis Comments [facility] Routine 09/07/2024 2:49 PM CDT Pancreatic ductal adenocarcinoma TISSUE SLIDES MATERIAL REQUEST Routine 09/07/2024 12:58 PM CDT Pancreatic ductal adenocarcinoma ECHOCARDIOGRAM 2D COMPLETE Routine 09/06/2024 4:17 PM CDT Pancreatic ductal adenocarcinoma URINALYSIS WITH MICROSCOPIC Routine 09/06/2024 12:38 PM CDT Pancreatic ductal adenocarcinoma .CBC Routine 09/06/2024 12:38 PM CDT Pancreatic ductal adenocarcinoma ZINVITAE Routine 09/06/2024 12:38 PM CDT Pancreatic ductal adenocarcinoma CARBOHYDRATE ANTIGEN 19-9 Routine 09/06/2024 12:38 PM CDT Pancreatic ductal adenocarcinoma HEPATITIS C VIRUS ANTIBODY Routine 09/06/2024 12:38 PM CDT Pancreatic ductal adenocarcinoma HEPATITIS B CORE ANTIBODY Routine 09/06/2024 12:38 PM CDT Pancreatic ductal adenocarcinoma HEPATITIS B SURFACE ANTIGEN Routine 09/06/2024 12:38 PM CDT Pancreatic ductal adenocarcinoma TRIIODOTHYRONINE Routine 09/06/2024 12:3 8 PM CDT Pancreatic ductal adenocarcinoma FREE THYROXINE Routine 09/06/2024 12:38 PM CDT Pancreatic ductal adenocarcinoma THYROID STIMULATING HORMONE Routine 09/06/2024 12:38 PM CDT Pancreatic ductal adenocarcinoma URINALYSIS WITH MICROSCOPIC Routine 09/06/2024 12:38 PM CDT Pancreatic ductal adenocarcinoma FIBRINOGEN Routine 09/06/2024 12:38 PM CDT Pancreatic ductal adenocarcinoma APTT Routine 09/06/2024 12:38 PM CDT Pancreatic ductal adenocarcinoma PROTHROMBIN TIME Routine 09/06/2024 12:3 8 PM CDT Pancreatic ductal adenocarcinoma GAMMA GLUTAMYL TRANSFERASE Routine 09/06/2024 12:38 PM CDT Pancreatic ductal adenocarcinoma URIC ACID Routine 09/06/2024 12:38 PM CDT Pancreatic ductal adenocarcinoma PHOSPHORUS LEVEL Routine 09/06/2024 12:3 8 PM CDT Pancreatic ductal adenocarcinoma MAGNESIUM LEVEL Routine 09/06/2024 12:38 PM CDT Pancreatic ductal adenocarcinoma LACTATE DEHYDROGENASE Routine 09/06/2024 12:38 PM CDT Pancreatic ductal adenocarcinoma FRACTIONATED BILIRUBIN Routine 12:38 PM CDT Pancreatic ductal adenocarcinoma COMPREHENSIVE METABOLIC PANEL Routine 09/06/2024 12:38 PM CDT Pancreatic ductal adenocarcinoma RETICULOCYTE COUNT AUTOMATED Routine 09/06/2024 12:38 PM CDT Pancreatic ductal adenocarcinoma COMPLETE BLOOD COUNT W/ DIFFERENTIAL Routine 09/06/2024 12:38 PM CDT Pancreatic ductal adenocarcinoma EKG, 12-LEAD (SCHEDULED) Routine 09/06/2024 Pancreatic ductal adenocarcinoma EKG, 12-LEAD (SCHEDULED) Routine 09/06/2024 Pancreatic ductal adenocarcinoma EKG, 12-LEAD (SCHEDULED) Routine 09/06/2024 Pancreatic ductal adenocarcinoma POC GLUCOSE SCREEN Routine 08/29/2024 11 :24 AM CDT IR FL PORT PLACEMENT 75 Routine 08/30/19 11:16 AM CDT Pancreatic ductal adenocarcinoma POC GLUCOSE SCREEN Routine 08/29/2024 8: 17 AM CDT .CBC Routine 08/26/2024 12:10 PM NUCLEAR CHEMISTRY TECHNICIAN Encounter for other preprocedural examination HEMOGLOBIN A1C Routine 08/26/2024 12:10 PM NUCLEAR CHEMISTRY TECHNICIAN Encounter for other preprocedural examination TYPE AND SCREEN Routine 08/26/2024 12:10 PM NUCLEAR CHEMISTRY TECHNICIAN Encounter for other preprocedural examination PROTHROMBIN TIME Routine 08/26/2024 12:1 0 PM NUCLEAR CHEMISTRY TECHNICIAN Encounter for other preprocedural examination BASIC METABOLIC PANEL, CALCIUM TOTAL Routine 08/26/2024 12:10 PM NUCLEAR CHEMISTRY TECHNICIAN Encounter for other preprocedural examination COMPLETE BLOOD COUNT W/ DIFFERENTIAL Routine 08/26/2024 12:10 PM NUCLEAR CHEMISTRY TECHNICIAN Encounter for other preprocedural examination EKG, 12-LEAD (SCHEDULED) Routine 08/26/2024 Encounter for other preprocedural examination CT CHEST ABDOMEN PELVIS W CONTRAST PANCREAS Routine 08/23/2024 4:00 PM NUCLEAR CHEMISTRY TECHNICIAN Pancreatic ductal adenocarcinoma POC CREATININE Routine 08/23/2024 2:21 PM NUCLEAR CHEMISTRY TECHNICIAN HP LB MDA PLACIDO LIQUID BIOPSY NORMAL Routine 08/23/2024 12:33 PM NUCLEAR CHEMISTRY TECHNICIAN Pancreatic ductal adenocarcinoma MD CAPELLAN PLACIDO - LIQUID BIOPSY (MUTATION ANALYSIS PRECISION PANEL-LB) Routine 08/23/2024 12:33 PM NUCLEAR CHEMISTRY TECHNICIAN Pancreatic ductal adenocarcinoma AP MD CAPELLAN PLACIDO - TISSUE (MUTATION ANALYSIS PRECISION PANEL-TISSUE) Routine 08/23/2024 10:46 AM NUCLEAR CHEMISTRY TECHNICIAN Pancreatic ductal adenocarcinoma MARILIA AP IHC WORKUP Routine 08/23/2024 10: 46 AM NUCLEAR CHEMISTRY TECHNICIAN Pancreatic ductal adenocarcinoma IR US GUIDED BIOPSY LIVER 60 STAT 08/16/2024 11:33 AM NUCLEAR CHEMISTRY TECHNICIAN Liver mass Lymphadenopathy SALIMA KUMAR ARCHIVED MATERIAL RETRIEVAL Routine 08/16/2024 11:13 AM NUCLEAR CHEMISTRY TECHNICIAN Liver mass Lymphadenopathy PATHOLOGY BIOPSY INTERPRETATION Routine 08/16/2024 11:13 AM NUCLEAR CHEMISTRY TECHNICIAN Liver mass Lymphadenopathy POC GLUCOSE SCREEN Routine 08/16/2024 9: 25 AM NUCLEAR CHEMISTRY TECHNICIAN TYPE AND SCREEN Routine 08/16/2024 7:57 AM NUCLEAR CHEMISTRY TECHNICIAN Encounter for preprocedural laboratory examination CONFIRM ABORH TYPE Routine 08/16/2024 7: 56 AM NUCLEAR CHEMISTRY TECHNICIAN Encounter for preprocedural laboratory examination CELIAC/SPLANCHNIC PLEXUS NEUROLYTIC BLOCK Routine 08/10/2024 8:02 AM NUCLEAR CHEMISTRY TECHNICIAN Neoplasm related pain (acute) (chronic) Cancer associated pain PAIN MANAGEMENT FLUOROSCOPY Routine 08/10/2024 8:00 AM NUCLEAR CHEMISTRY TECHNICIAN Neoplasm related pain (acute) (chronic) Cancer associated pain CT CHEST W CONTRAST Routine 07/29/2024 8 :41 AM NUCLEAR CHEMISTRY TECHNICIAN Mass of pancreas Liver mass Lymphadenopathy BETA 2 MICROGLOBULIN Add-On 07/28/2024 2:55 PM NUCLEAR CHEMISTRY TECHNICIAN Mass of pancreas .CBC Routine 07/28/2024 2:55 PM NUCLEAR CHEMISTRY TECHNICIAN Mass of pancreas Liver mass Abnormal finding on diagnostic imaging of other abdominal region including retroperitoneum HEMOGLOBIN A1C Routine 07/28/2024 2:55 PM NUCLEAR CHEMISTRY TECHNICIAN Mass of pancreas Liver mass Abnormal finding on diagnostic imaging of other abdominal region including retroperitoneum Type 2 diabetes mellitus with hyperglycemia ALPHA FETOPROTEIN TUMOR MARKER Routine 07/28/2024 2:55 PM NUCLEAR CHEMISTRY TECHNICIAN Mass of pancreas Liver mass Abnormal finding on diagnostic imaging of other abdominal region including retroperitoneum CARCINOEMBRYONIC ANTIGEN Routine 07/28/2024 2:55 PM NUCLEAR CHEMISTRY TECHNICIAN Mass of pancreas Liver mass Abnormal finding on diagnostic imaging of other abdominal region including retroperitoneum CARBOHYDRATE ANTIGEN 19-9 Routine 07/28/2024 2:55 PM NUCLEAR CHEMISTRY TECHNICIAN Mass of pancreas Liver mass Abnormal finding on diagnostic imaging of other abdominal region including retroperitoneum LIPASE LEVEL Routine 07/28/2024 2:55 PM NUCLEAR CHEMISTRY TECHNICIAN Mass of pancreas Liver mass Abnormal finding on diagnostic imaging of other abdominal region including retroperitoneum AMYLASE LEVEL Routine 07/28/2024 2:55 PM NUCLEAR CHEMISTRY TECHNICIAN Mass of pancreas Liver mass Abnormal finding on diagnostic imaging of other abdominal region including retroperitoneum HEPATITIS C VIRUS ANTIBODY Routine 07/28/2024 2:55 PM NUCLEAR CHEMISTRY TECHNICIAN Mass of pancreas Liver mass Abnormal finding on diagnostic imaging of other abdominal region including retroperitoneum HEPATITIS B CORE ANTIBODY Routine 07/28/2024 2:55 PM NUCLEAR CHEMISTRY TECHNICIAN Mass of pancreas Liver mass Abnormal finding on diagnostic imaging of other abdominal region including retroperitoneum HEPATITIS B SURFACE ANTIGEN Routine 07/28/2024 2:55 PM NUCLEAR CHEMISTRY TECHNICIAN Mass of pancreas Liver mass Abnormal finding on diagnostic imaging of other abdominal region including retroperitoneum HEPATITIS B SURFACE ANTIBODY Routine 07/28/2024 2:55 PM NUCLEAR CHEMISTRY TECHNICIAN Mass of pancreas Liver mass Abnormal finding on diagnostic imaging of other abdominal region including retroperitoneum APTT Routine 07/28/2024 2:55 PM NUCLEAR CHEMISTRY TECHNICIAN Mass of pancreas Liver mass Abnormal finding on diagnostic imaging of other abdominal region including retroperitoneum PROTHROMBIN TIME Routine 07/28/2024 2:55 PM NUCLEAR CHEMISTRY TECHNICIAN Mass of pancreas Liver mass Abnormal finding on diagnostic imaging of other abdominal region including retroperitoneum COMPLETE BLOOD COUNT W/ DIFFERENTIAL Routine 07/28/2024 2:55 PM NUCLEAR CHEMISTRY TECHNICIAN Mass of pancreas Liver mass Abnormal finding on diagnostic imaging of other abdominal region including retroperitoneum COMPREHENSIVE METABOLIC PANEL Routine 07/28/2024 2:55 PM NUCLEAR CHEMISTRY TECHNICIAN Mass of pancreas Liver mass Abnormal finding on diagnostic imaging of other abdominal region including retroperitoneum OSI CT ABDOMEN AND PELVIS Routine 07/05/2024 2:06 PM NUCLEAR CHEMISTRY TECHNICIAN Cancer after 09/14/2023 Results * [facility] (09/07/2024 2:49 PM CDT) Anatomical Region Laterality Modality Other 09/07/2024 2:53 PM CDT Impressions 09/07/2024 2:53 PM CDT Tumor metrics have been completed. I personally reviewed these images and agree with the tumor metrics. Narrative 09/07/2024 2:53 PM CDT FULL RESULT: Examination: [facility] on 09/07/2024 14:53 PM Indication:Pancreatic ductal adenocarcinoma Findings: Tumor metrics have been completed. Procedure Note Edson Flood MD - 09/07/2024 FULL RESULT: Examination: [facility] on 09/07/2024 14:53 PM Indication:Pancreatic ductal adenocarcinoma Findings: Tumor metrics have been completed. IMPRESSION: Tumor metrics have been completed. I personally reviewed these images andagree with the tumor metrics. us You [facility] ORDERABLES Final Resul t * Tissue Slides Material Request (09/07/2024 12:58 PM CDT) Tissue 09/07/2024 12:5 8 PM CDT 09/07/2024 12:58 PM CDT us Vidhi Davidson MD, MDA IP AP BIOMARKERS Final Resul t MARIL[facility] [id number] [place] [address], [place] * Echocardiogram 2D Complete (09/06/2024 4:17 PM CDT) EF 59 ISCV 09/06/2024 3:34 PM CDT Narrative ISCV - 09/06/2024 5:22 PM CDT Echocardiographic Report Interpretation Summary A complete two-dimensional transthoracic echocardiogram was performed (2D, M- mode, Spectral and color Doppler). There is no comparison study available. Normal left ventricular size and systolic function. LV ejection fraction calculated using the bi-plane method of disks is 59 %. The right ventricle is normal in size and function. Right ventricular systolic pressure is normal. There is no pericardial effusion. Left Ventricle: Normal left ventricular size and systolic function. There is normal left ventricular wall thickness. LV ejection fraction calculated using the bi-plane method of disks is 59 %. No regional wall motion abnormalities noted. I WMSI = 1.00 % Normal = 100 Normal global longitudinal peak systolic value. X - Cannot 1 - Normal 2 - 3 - Akinetic 4 - Dyskinetic Interpret Hypokinetic 5 - Aneurysmal 3D imaginD volumes were not performed in this study. Cardiac Mechanics/Speckle Tracking Imaging: Normal global longitudinal peak systolic value. Strain Imaging was performed; GLPS avg = -20%. Diastology: Impaired LV relaxation pattern of diastolic dysfunction, Doppler suggests normal LA pressures. Right Ventricle: The right ventricle is normal in size and function. Normal RV systolic function using TAPSE criteria. Atria: The left atrial size is normal. Right atrial size is normal. There is a catheter in the superior vena cava that is seen protruding into the right atrium. Mitral Valve: The mitral valve is normal in structure and function. There is trace mitral regurgitation. Tricuspid Valve: The tricuspid valve is not well visualized, but is grossly normal. There is trace tricuspid regurgitation. Estimated RVSP is 15-20mmHg. Right ventricular systolic pressure is normal. Aortic Valve: The aortic valve is trileaflet. The aortic valve opens well. Pulmonic Valve: The pulmonic valve is not well seen, but is grossly normal. Trace pulmonic valvular regurgitation. Great Vessels: The aortic root is normal size. The inferior vena cava demonstrates normal size and normal respiratory variation. Pericardium/Pleural: There is no pericardial effusion. Preliminary Reviewer Preliminary Interpretation: Afia Mann MD. MMode/2D Measurements IVSd: 0.84 cm LVIDd: 4.2 cm LVIDs: 2.8 cm LVPWd: 0.83 cm FS: 33.7 % Ao root diam: 3.3 cm Ao root area: 8.7 cm2 LA dimension: 3.4 cm LVOT diam: 2.1 cm EDV(MOD-A4C): 124.0 ml ESV(MOD-A4C): 51.1 ml LVOT area: 3.6 cm2 EF(MOD-A4C): 58.8 % EDV(MOD-A2C): 129.9 ml ESV(MOD-A2C): 55.0 ml EDV(MOD-bp): 129.4 ml EF(MOD-A2C): 57.6 % ESV(MOD-bp): 53.1 ml EF(MOD-bp): 59.0 % LAV(MOD-A2C): 56.6 ml EDV (MOD-bp) Index: 75.3 ml/m2 LAV(MOD-A4C): 42.1 ml LAV(MOD-bp): 48.4 ml LAV(MOD-bp) Indexed: 28.1 ml/m2 ESV (MOD-bp) Index: 30.9 ml/m2 RWT: 0.39 cm TAPSE (>1.6): 2.5 cm Time Measurements Aortic R-R: 0.65 sec Doppler Measurements MV E max josias: 39.3 cm/sec MV V2 max: 87.4 cm/sec MV A max josias: 63.0 cm/sec MV max P.1 mmHg MV E/A: 0.62 MV V2 mean: 46.0 cm/sec MV mean P.0 mmHg MV V2 VTI: 15.7 cm MVA(VTI): 3.8 cm2 Ao V2 max: 112.6 cm/sec LV V1 max P.3 mmHg Ao max P.1 mmHg LV V1 mean P.7 mmHg Ao V2 mean: 79.2 cm/sec LV V1 max: 103.8 cm/sec Ao mean P.8 mmHg LV V1 mean: 60.6 cm/sec Ao V2 VTI: 18.7 cm LV V1 VTI: 16.7 cm EDUARDO(I,D): 3.2 cm2 EDUARDO(V,D): 3.3 cm2 CO(LVOT): 5.5 l/min PA V2 max: 98.1 cm/sec SV(LVOT): 60.0 ml PA max P.9 mmHg PA V2 mean: 68.1 cm/sec PA mean P.0 mmHg PA V2 VTI: 17.0 cm Med Peak E' Josias: 8.3 cm/sec Lat Peak E' Josias: 10.3 cm/sec TR max josias: 198.4 cm/sec RAP systole: 3.0 mmHg TR max P.8 mmHg RVSP(TR): 18.8 mmHg EDUARDO Index (I,D): 1.9 EDUARDO Index (V,D): 1.9 Dimensionless Index: 0.92 E/e' (avg): 4.2 E/e' (lat): 3.8 E/e' (sept): 4.7 Procedure Note Joey Rojas MD - 09/06/2024 Echocardiographic Report Interpretation Summary A complete two-dimensional transthoracic echocardiogram was performed (2D,M- mode, Spectral and color Doppler). There is no comparison studyavailable. Normal left ventricular size and systolic function. LV ejection fractioncalculated using the bi-plane method of disks is 59 %. The right ventricle is normal in size and function. Right ventricular systolic pressure is normal. There is no pericardial effusion. Left Ventricle: Normal left ventricular size and systolic function. There is normal leftventricular wall thickness. LV ejection fraction calculated using thebi-plane method of disks is 59 %. No regional wall motion abnormalitiesnoted. I WMSI = 1.00 % Normal = 100 Normal global longitudinal peak systolic value. X - Cannot 1 - Normal 2 - 3 - Akinetic 4 - Dyskinetic Interpret Hypokinetic 5 - Aneurysmal 3D imaginD volumes were not performed in this study. Cardiac Mechanics/Speckle Tracking Imaging: Normal global longitudinal peak systolic value. Strain Imaging wasperformed; GLPS avg = -20%. Diastology: Impaired LV relaxation pattern of diastolic dysfunction, Doppler suggestsnormal LA pressures. Right Ventricle: The right ventricle is normal in size and function. Normal RV systolicfunction using TAPSE criteria. Atria: The left atrial size is normal. Right atrial size is normal. There is acatheter in the superior vena cava that is seen protruding into the rightatrium. Mitral Valve: The mitral valve is normal in structure and function. There is tracemitral regurgitation. Tricuspid Valve: The tricuspid valve is not well visualized, but is grossly normal. Thereis trace tricuspid regurgitation. Estimated RVSP is 15-20mmHg. Rightventricular systolic pressure is normal. Aortic Valve: The aortic valve is trileaflet. The aortic valve opens well. Pulmonic Valve: The pulmonic valve is not well seen, but is grossly normal. Trace pulmonicvalvular regurgitation. Great Vessels: The aortic root is normal size. The inferior vena cava demonstrates normalsize and normal respiratory variation. Pericardium/Pleural: There is no pericardial effusion. Preliminary Reviewer Preliminary Interpretation: Afia Mann MD. MMode/2D Measurements IVSd: 0.84 cmLVIDd: 4.2 cm LVIDs: 2.8 cm LVPWd: 0.83 cm FS: 33.7 %Ao root diam: 3.3 cm Ao root area: 8.7 cm2 LA dimension: 3.4 cm LVOT diam: 2.1 cmEDV(MOD-A4C): 124.0 ml ESV(MOD-A4C): 51.1 ml LVOT area: 3.6 cm2EF(MOD-A4C): 58.8 % EDV(MOD-A2C): 129.9 ml ESV(MOD-A2C): 55.0 mlEDV(MOD-bp): 129.4 ml EF(MOD-A2C): 57.6 %ESV(MOD-bp): 53.1 ml EF(MOD-bp): 59.0 % LAV(MOD-A2C): 56.6 mlEDV (MOD-bp) Index: 75.3 ml/m2 LAV(MOD-A4C): 42.1 ml LAV(MOD-bp): 48.4 ml LAV(MOD-bp) Indexed: 28.1 ml/m2 ESV (MOD-bp) Index: 30.9 ml/m2RWT: 0.39 cm TAPSE (>1.6): 2.5 cm Time Measurements Aortic R-R: 0.65 sec Doppler Measurements MV E max josias: 39.3 cm/secMV V2 max: 87.4 cm/sec MV A max josias: 63.0 cm/secMV max P.1 mmHg MV E/A: 0.62MV V2 mean: 46.0 cm/sec MV mean P.0 mmHg MV V2 VTI: 15.7 cm MVA(VTI): 3.8 cm2 Ao V2 max: 112.6 cm/secLV V1 max P.3 mmHg Ao max P.1 mmHgLV V1 mean P.7 mmHg Ao V2 mean: 79.2 cm/secLV V1 max: 103.8 cm/sec Ao mean P.8 mmHgLV V1 mean: 60.6 cm/sec Ao V2 VTI: 18.7 cmLV V1 VTI: 16.7 cm EDUARDO(I,D): 3.2 cm2 EDUARDO(V,D): 3.3 cm2 CO(LVOT): 5.5 l/minPA V2 max: 98.1 cm/sec SV(LVOT): 60.0 mlPA max P.9 mmHg PA V2 mean: 68.1 cm/sec PA mean P.0 mmHg PA V2 VTI: 17.0 cm Med Peak E' Josias: 8.3 cm/secLat Peak E' Josias: 10.3 cm/sec TR max josias: 198.4 cm/secRAP systole: 3.0 mmHg TR max P.8 mmHg RVSP(TR): 18.8 mmHg EDUARDO Index (I,D): 1.9AVA Index (V,D): 1.9 Dimensionless Index: 0.92E/e' (avg): 4.2 E/e' (lat): 3.8E/e' (sept): 4.7 us You GUPTA CV ECHO ORDERABLES Final Result ISCV * (ABNORMAL) Urinalysis with Microscopic (09/06/2024 12:38 PM CDT) Urine Appearance Clear Clear 09/07/19 1:35 PM CDT [facility] Comment:This result was prev iously suppressed from the chart. Urine Color Yellow Colorless, Straw, Yellow, Dark Yellow, Straw-Yellow 09/06/2024 1:35 PM CDT [facility] Comment:This result was prev iously suppressed from the chart. Urine Specific [place] 1.032 1.003 - 1.035 09/06/2024 1:35 PM CDT [facility] Comment:This result was prev iously suppressed from the chart. Urine pH 6.0 5.0 - 8.0 09/06/2024 1:35 PM CDT [facility] Comment:This result was prev iously suppressed from the chart. Urine Glucose Negative Negative mg/dL 09/06/2024 1:35 PM CDT [facility] Comment:This result was prev iously suppressed from the chart. Urine Ketones Negative Negative mg/dL 09/06/2024 1:35 PM CDT [facility] Comment:This result was prev iously suppressed from the chart. Urine Blood Negative Negative 09/06/2024 1:35 PM CDT [facility] Comment:This result was prev iously suppressed from the chart. Urine Protein Negative Negative mg/dL 09/06/2024 1:35 PM CDT [facility] Comment:This result was prev iously suppressed from the chart. Urine Bilirubin Negative Negative 1:35 PM CDT [facility] Urine Urobilinogen Negative Negative 09/06/2024 1:35 PM CDT [facility] Urine Nitrite Negative Negative 09/06/2024 1:35 PM CDT [facility] Comment:This result was prev iously suppressed from the chart. Urine Leukocyte Esterase Negative Negative 09/06/2024 1:35 PM CDT [facility] Comment:This result was prev iously suppressed from the chart. Urine WBC <1 <=2 /HPF 09/06/2024 1:35 PM CDT [facility] Urine RBC 2 <=2 /HPF 09/06/2024 1:35 PM CDT [facility] Urine Mucous Trace Not Seen, Trace /HPF 09/06/2024 1:35 PM CDT [facility] Comment:This result was prev iously suppressed from the chart. Urine Bacteria OCC(A) Not Seen /HPF 09/06/2024 1:35 PM CDT [facility] Comment:This result was prev iously suppressed from the chart. Urine Squamous Epithelial Cells OCC Not Seen, OCC, Rare /HPF 09/06/2024 1:35 PM CDT [facility] Comment:This result was prev iously suppressed from the chart. Urine Voided urine specimen / Unknown Non-blood Collection / Unknown 09/06/2024 12:38 PM CDT 09/06/2024 12:41 PM CDT Narrative [facility] - 09/06/2024 1:35 PM CDT Some reporting parameters within the Urinalysis test have changed due to the implementation of new instrumentation in the Main [place], allowing greater sensitivity of measurement. Urinalysis results reported by the [facility] using existing instrumentation, as well as Urinalysis testing performed manually or by back-up methodology at the main [place], will remain relatively unchanged. New reporting parameters and units will now be reported for all campuses. us You GUPTA URINE ORDERABLES Final Result [facility] Unless otherwise noted, all lab tests performed by: Division of Pathology and Laboratory Medicine [address] [place] [id number] * RIKA (09/06/2024 12:38 PM CDT) Pathologist [facility] RIKA See Note 09/06/2024 2:12 PM CDT [facility] Comment:Specimen for Genetic testing was obtained, processed and sent out to the Performing Reference Laboratory. Refer to the performing lab for results. Blood Peripheral blood specimen / Unknown Venipuncture / Unknown 09/06/2024 12:38 PM CDT 09/06/2024 12:59 PM CDT us You GUPTA LAB BLOOD ORDERABLES Final Resu lt [facility] [address] [address], * (ABNORMAL) .CBC (09/06/2024 12:38 PM CDT) Only the most recent of3 resultswithin the time period is included. White Blood Cell 4.7 4.1 - 10.5 K/uL 09/06/2024 1:19 PM CDT [facility] Red Blood Cell 3.86(L) 4.30 - 6.04 M/uL 09/06/2024 1:19 PM CDT [facility] Hemoglobin 10.9(L) 13.3 - 17.4 g/dL 09/06/2024 1:19 PM CDT [facility] Hematocrit 34.0(L) 39.5 - 51.8 % 09/06/2024 1:19 PM CDT [facility] Mean Cell Volume 88 82 - 99 fL 09/06/2024 1:19 PM CDT [facility] Mean Cell Hemoglobin 28.2 26.6 - 33.2 pg 09/06/2024 1:19 PM CDT [facility] Mean Cell Hemoglobin Concentration 32.1 31.1 - 35.2 g/dL 09/06/2024 1:19 PM CDT [facility] RDW-SD 42.1 37.5 - 49.7 fL 09/06/2024 1:19 PM CDT [facility] Red Cell Diameter Width 13.0 11.6 - 15.5 % 09/06/2024 1:19 PM CDT [facility] Platelet 197 160 - 397 K/uL 09/06/2024 1:19 PM CDT [facility] Mean Platelet Volume 10.1 9.1 - 12.6 fL 09/06/2024 1:19 PM CDT [facility] INRBC 0.0 0.0 - 0.1 /100 WBC 09/06/2024 1:19 PM T [facility] Comment: The INRBC (instrument NRBC) value reflects the enumeration of nucleated red blood cells contained in a 200uL sample of whole blood analyzed by the instrument. This value may differ from the NRBC value reported in a manual differential, which is based on a 100 cell differential. Neutrophil % 75.2(H) 43.2 - 72.7 % 09/06/2024 1:19 PM CDT [facility] Lymphocyte % 17.3 16.8 - 46.2 % 09/06/2024 1:19 PM CDT [facility] Monocyte % 6.2 5.1 - 12.5 % 09/06/2024 1:19 PM CDT [facility] Eosinophil % 0.9 0.4 - 6.3 % 09/06/2024 1:19 PM CDT [facility] Basophil % 0.2 0.2 - 1.4 % 09/06/2024 1:19 PM CDT [facility] IGRE % 0.2 0.1 - 1.5 % 09/06/2024 1:19 PM CDT [facility] Comment:The IGRE% includes M etamyelocytes, Myelocytes and Promyelocytes. Neutrophil Abs 3.51 1.95 - 7.25 K/uL 09/06/2024 1:19 PM CDT [facility] Lymphocyte Abs 0.81(L) 1.01 - 3.24 K/uL 09/06/2024 1:19 PM CDT [facility] Monocyte Abs 0.29 0.24 - 0.85 K/uL 09/06/2024 1:19 PM CDT [facility] Eosinophil Abs 0.04 0.02 - 0.50 K/uL 09/06/2024 1:19 PM CDT [facility] Basophil Abs 0.01(L) 0.02 - 0.09 K/uL 09/06/2024 1:19 PM CDT [facility] IG Abs 0.01 0.01 - 0.12 K/uL 09/06/2024 1:19 PM CDT [facility] Blood Peripheral blood specimen / Unknown Venipuncture / Unknown 09/06/2024 12:38 PM CDT 09/06/2024 12:59 PM CDT us You [facility]A LAB BLOOD ORDERABLES Final Resu lt [facility] Unless otherwise noted, all lab tests performed by: Division of Pathology and Laboratory Medicine [address] [place] [id number] * Fractionated Bilirubin (09/06/2024 12:38 PM CDT) Bilirubin Direct 0.2 0.0 - 0.2 mg/dL 09/06/2024 1:43 PM CDT [facility] Comment:Indocyanine Green (I CG) may cause falsely elevated bilirubin results. Total and direct bilirubin must not be measured from samples containing indocyanine green. Bilirubin Indirect 0.2 0.0 - 1.0 mg/dL 09/06/2024 1:43 PM CDT [facility] Bilirubin Total 0.4 0.0 - 1.2 mg/dL 09/06/2024 1:43 PM CDT [facility] Comment: Indocyanine Green (ICG) may cause falsely elevated bilirubin results. Total and direct bilirubin must not be measured from samples containing indocyanine green. False elevation of total bilirubin can be seen in patients with IgG concentrations above 28 g/L. Indocyanine Green (ICG) may cause falsely elevated bilirubin results. Total and direct bilirubin must not be measured from samples containing indocyanine green. False elevation of total bilirubin can be seen in patients with IgG concentrations above 28 g/L. Blood Peripheral blood specimen / Unknown Venipuncture / Unknown 09/06/2024 12:38 PM CDT 09/06/2024 12:59 PM CDT You [facility]A LAB BLOOD ORDERABLES Final Resu lt Performing Organization Address City/[facility] de Phone Number [facility] Unless otherwise noted, all lab tests performed by: Division of Pathology and Laboratory Medicine [address] [place] [id number] * Hepatitis C Virus Antibody (09/06/2024 12:38 PM CDT) Only the most recent of2 resultswithin the time period is included. Pathologist [facility] HCVAb. Non Reactive Non Reactive 09/06/2024 2:50 PM CDT [facility] Blood Peripheral blood specimen / Unknown Venipuncture / Unknown 09/06/2024 12:38 PM CDT 09/06/2024 12:59 PM CDT Narrative [facility] - 09/06/2024 2:50 PM CDT Antibody detection in the immunocompromised and immunosuppressed population may be delayed or absent entirely. Therefore serial testing, correlation with other clinical findings, and supplemental testing (if available) should be taken into consideration when interpreting the results. You [facility]A LAB BLOOD ORDERABLES Final Resu lt [facility] Unless otherwise noted, all lab tests performed by: Division of Pathology and Laboratory Medicine [address] [place] [id number] * Hepatitis B Total Ig Core Ab (SCREENING) (anti-HBc total Ig; HBcAb total Ig) (09/06/2024 12:38 PM CDT) Only the most recent of2 resultswithin the time period is included. HBcAb. Non Reactive Non Reactive 09/06/2024 2:50 PM CDT [facility] Blood Peripheral blood specimen / Unknown Venipuncture / Unknown 09/06/2024 12:38 PM CDT 09/06/2024 12:59 PM CDT us You GUPTA LAB BLOOD ORDERABLES Final Resu lt [facility] Unless otherwise noted, all lab tests performed by: Division of Pathology and Laboratory Medicine [address] [place] [phone] * (ABNORMAL) Comprehensive Metabolic Panel (09/06/2024 12:38 PM CDT) Only the most recent of2 resultswithin the time period is included. Pathologist [facility] Bilirubin Total 0.4 0.0 - 1.2 mg/dL 09/06/2024 1:43 PM CDT [facility] Comment:Indocyanine Green (I CG) may cause falsely elevated bilirubin results. Total and direct bilirubin must not be measured from samples containing indocyanine green. False elevation of total bilirubin can be seen in patients with IgG concentrations above 28 g/L. eGFR 109 >=60 mL/min/1. 73 sq. m 09/06/2024 1:43 PM CDT [facility] Comment: The eGFRcr is calculated with the 2020 CKD-EPI creatinine equation using creatinine, patient's age, and sex for adults 18 years of age and older. Other factors, especially muscle mass, may affect accuracy and need to be considered. According to the Kidney Disease: Improving Global Outcomes (KDIGO) CKD Work Group 2012 Clinical Practice Guideline, chronic kidney disease (CKD) is defined as the abnormalities of kidney structure or function, present for more than 3 months, with implications for health. CKD should be classified by cause, GFR category, and albuminuria category. KDIGO guidelines provide the following GFR categories. Stage / Description / GFR mL/min/1.73 m2: G1* / Normal or high / >= 90 G2* / Mildly decreased / 60-89 G3a / Mildly to moderately decreased / 45-59 G3b / Moderately to severely decreased / 30-44 G4 / Severely decreased / 15-29 G5 / Kidney failure / <15 *In the absence of evidence of kidney damage, neither G1 nor G2 fulfill criteria for CKD. Tot Protein 7.1 6.4 - 8.3 gm/dL 09/06/2024 1:43 PM CDT [facility] Calcium Level Total 9.7 8.2 - 10.2 mg/dL 09/06/2024 1:43 PM CDT [facility] Alkaline Phosphatase 81 40 - 129 U/L 09/06/2024 1:43 PM CDT [facility] Albumin Level 4.5 3.5 - 5.2 gm/dL 09/06/2024 1:43 PM CDT [facility] AST 13 <=40 U/L 09/06/2024 1:43 PM CDT [facility] ALT 16 <=41 U/L 09/06/2024 1:43 PM CDT [facility] Sodium Level 137 136 - 145 mmol/L 09/06/2024 1:43 PM CDT [facility] Potassium Level 3.9 3.4 - 4.5 mmol/L 09/06/2024 1:43 PM CDT [facility] Chloride 101 98 - 107 mmol/L 09/06/2024 1:43 PM CDT [facility] CO2 27 22 - 29 mmol/L 09/06/2024 1:43 PM CDT [facility] Anion Gap 9 4 - 14 mmol/L 09/06/2024 1:43 PM CDT [facility] Creatinine 0.71 0.67 - 1.17 mg/dL 09/06/2024 1:43 PM CDT [facility] BUN 17 6 - 23 mg/dL 09/06/2024 1:43 PM CDT [facility] Glucose Level 222(H) 70 - 99 mg/dL 09/06/2024 1:43 PM CDT [facility] Comment: Effective 01/16/16, the glucose reference intervals have been updated based on [place] [employer] guidelines (Standards of Medical Care in Diabetes 2016. Diabetes Care 2016; 39: S13-S22). Fasting blood glucose: Normal: 70-99 mg/dL Impaired fasting glucose (increased risk for diabetes or pre-diabetes): 100-125 mg/dL Diabetes mellitus: >/=126 mg/dL Random blood glucose: Normal: 70-199 mg/dL Note: Random glucose >100 mg/dL is associated with increased risk for diabetes. Blood Peripheral blood specimen / Unknown Venipuncture / Unknown 09/06/2024 12:38 PM CDT 09/06/2024 12:59 PM CDT You GUPTA LAB BLOOD ORDERABLES Final Resu lt Performing Organization Address City/[facility]/ZIP Co de Phone Number [facility] Unless otherwise noted, all lab tests performed by: Division of Pathology and Laboratory Medicine [address] [place] [phone] * aPTT (09/06/2024 12:38 PM CDT) Only the most recent of2 resultswithin the time period is included. Activated PTT 27.3 24.8 - 35.6 second(s) 09/06/2024 1:30 PM CDT [facility] Blood Peripheral blood specimen / Unknown Venipuncture / Unknown 09/06/2024 12:38 PM CDT 09/06/2024 12:40 PM CDT You GUPTA LAB BLOOD ORDERABLES Final Resu lt Performing Organization Address City/[facility]/ZIP Co de Phone Number [facility] Unless otherwise noted, all lab tests performed by: Division of Pathology and Laboratory Medicine [address] [place] [id number] * CA 19-9 (09/06/2024 12:38 PM CDT) Only the most recent of2 resultswithin the time period is included. CA 19-9 12.8 <=35.0 U/mL 09/06/2024 2:20 PM CDT [facility] Blood Peripheral blood specimen / Unknown Venipuncture / Unknown 09/06/2024 12:38 PM CDT 09/06/2024 12:59 PM CDT Narrative [facility] - 09/06/2024 2:20 PM CDT Results greater than 9500 U/mL may not be reliable due to matrix effect with extended dilution as it exceeds the can runner's recommended limit. Caution should be exercised when interpreting such values and done in conjunction with clinical context. This test is measured by electrochemiluminescence immunoassay on Braul[employer] Madiha immunoassay analyzers. Results obtained in different methods are not interchangeable. You UGPTA LAB BLOOD ORDERABLES Final Resu lt Performing Organization Address City/[facility] Co de Phone Number [facility] Unless otherwise noted, all lab tests performed by: Division of Pathology and Laboratory Medicine [address] [place] [id number] * Hepatitis B Surface Ag (09/06/2024 12:38 PM CDT) Only the most recent of2 resultswithin the time period is included. Pathologist [facility] HBsAg. Non Reactive Non Reactive 09/06/2024 2:50 PM CDT [facility] Blood Peripheral blood specimen / Unknown Venipuncture / Unknown 09/06/2024 12:38 PM CDT 09/06/2024 12:59 PM CDT You GUPTA LAB BLOOD ORDERABLES Final Resu lt Performing Organization Address City/[facility] Co de Phone Number [facility] Unless otherwise noted, all lab tests performed by: Division of Pathology and Laboratory Medicine [address] [place] [phone] * Prothrombin Time (09/06/2024 12:38 PM CDT) Only the most recent of3 resultswithin the time period is included. Pathologist [facility] Prothrombin Time 13.9 12.2 - 14.4 second(s) 09/06/2024 1:30 PM CDT [facility] International Normalization Ratio 1.10 0.91 - 1.10 09/06/2024 1:30 PM CDT [facility] Blood Peripheral blood specimen / Unknown Venipuncture / Unknown 09/06/2024 12:38 PM CDT 09/06/2024 12:40 PM CDT You GUPTA LAB BLOOD ORDERABLES Final Resu lt [facility] Unless otherwise noted, all lab tests performed by: Division of Pathology and Laboratory Medicine [address] [place] [id number] * Fibrinogen (09/06/2024 12:38 PM CDT) [facility] Fibrinogen 339 214 - 503 mg/dL 09/06/2024 1:30 PM CDT [facility] Blood Peripheral blood specimen / Unknown Venipuncture / Unknown 09/06/2024 12:38 PM CDT 09/06/2024 12:40 PM CDT You GUPTA LAB BLOOD ORDERABLES Final Resu lt Performing Organization Address City/[facility]/ZIP Co de Phone Number [facility] Unless otherwise noted, all lab tests performed by: Division of Pathology and Laboratory Medicine [address] [place] [phone] * (ABNORMAL) Reticulocyte Count, Auto (09/06/2024 12:38 PM CDT) [facility] Reticulocyte Count Automated 1.18 0.92 - 2.71 % 09/06/2024 1:19 PM CDT [facility] RETHE 29.0(L) 29.9 - 38.4 pg 09/06/2024 1:19 PM CDT [facility] IRF 10.1 4.4 - 22.0 % 09/06/2024 1:19 PM CDT [facility] Retic Absolute 0.0455 0.04 - 0.13 M/uL 09/06/2024 1:19 PM CDT [facility] Blood Peripheral blood specimen / Unknown Venipuncture / Unknown 09/06/2024 12:38 PM CDT 09/06/2024 12:59 PM CDT You GUPTA LAB BLOOD ORDERABLES Final Resu lt [facility] Unless otherwise noted, all lab tests performed by: Division of Pathology and Laboratory Medicine [address] [place] [phone] * (ABNORMAL) Uric Acid (09/06/2024 12:38 PM CDT) Pathologist [facility] Uric Acid 2.8(L) 3.4 - 7.0 mg/dL 09/06/2024 1:43 PM CDT [facility] Blood Peripheral blood specimen / Unknown Venipuncture / Unknown 09/06/2024 12:38 PM CDT 09/06/2024 12:59 PM CDT us You GUPTA LAB BLOOD ORDERABLES Final Resu lt Performing Organization Address City/[facility]/ZIP Co de Phone Number [facility] Unless otherwise noted, all lab tests performed by: Division of Pathology and Laboratory Medicine [address] [place] [id number] * T3 (09/06/2024 12:38 PM CDT) Pathologist [facility] Triiodothyronine 87 80 - 200 ng/dL 09/06/2024 2:20 PM CDT [facility] Blood Peripheral blood specimen / Unknown Venipuncture / Unknown 09/06/2024 12:38 PM CDT 09/06/2024 12:59 PM CDT us You GUPTA LAB BLOOD ORDERABLES Final Resu lt [facility] Unless otherwise noted, all lab tests performed by: Division of Pathology and Laboratory Medicine [address] [place] [phone] * TSH (09/06/2024 12:38 PM CDT) Pathologist [facility] Thyroid Stimulating Hormone 1.27 0.27 - 4.20 mcIU/mL 09/06/2024 2:20 PM CDT [facility] Blood Peripheral blood specimen / Unknown Venipuncture / Unknown 09/06/2024 12:38 PM CDT 09/06/2024 12:59 PM CDT us You GUPTA LAB BLOOD ORDERABLES Final Resu lt Performing Organization Address City/[facility]/ZIP Co de Phone Number [facility] Unless otherwise noted, all lab tests performed by: Division of Pathology and Laboratory Medicine [address] [place] [phone] * Free T4 (09/06/2024 12:38 PM CDT) T4 (Thyroxine) Free 1.27 0.92 - 1.68 ng/dL 09/06/2024 2:20 PM CDT [facility] Blood Peripheral blood specimen / Unknown Venipuncture / Unknown 09/06/2024 12:38 PM CDT 09/06/2024 12:59 PM CDT us You GUPTA LAB BLOOD ORDERABLES Final Resu lt Performing Organization Address [facility] de Phone Number [facility] Unless otherwise noted, all lab tests performed by: Division of Pathology and Laboratory Medicine [address] [place] [phone] * Phosphorus Level (09/06/2024 12:38 PM CDT) Phosphorus Level 4.1 2.5 - 4.5 mg/dL 09/06/2024 1:43 PM CDT [facility] Blood Peripheral blood specimen / Unknown Venipuncture / Unknown 09/06/2024 12:38 PM CDT 09/06/2024 12:59 PM CDT us You GUPTA LAB BLOOD ORDERABLES Final Resu lt [facility] Unless otherwise noted, all lab tests performed by: Division of Pathology and Laboratory Medicine [address] [place] [phone] * Magnesium Level (09/06/2024 12:38 PM CDT) [facility] Magnesium Level 2.1 1.6 - 2.6 mg/dL 09/06/2024 1:43 PM CDT [facility] Blood Peripheral blood specimen / Unknown Venipuncture / Unknown 09/06/2024 12:38 PM CDT 09/06/2024 12:59 PM CDT You GUPTA LAB BLOOD ORDERABLES Final Resu lt [facility] Unless otherwise noted, all lab tests performed by: Division of Pathology and Laboratory Medicine [address] [place] [address] * (ABNORMAL) LDH (09/06/2024 12:38 PM CDT) [facility] LDH 121(L) 135 - 225 U/L 09/06/2024 1:45 PM CDT [facility] Blood Peripheral blood specimen / Unknown Venipuncture / Unknown 09/06/2024 12:38 PM CDT 09/06/2024 12:59 PM CDT Narrative [facility] - 09/06/2024 1:45 PM CDT Results greater than 1651 U/L may not be reliable due to matrix effect with extended dilution as it exceeds the can runner's recommended limit. Caution should be exercised when interpreting such values and done in conjunction with clinical context. You GUPTA LAB BLOOD ORDERABLES Final Resu lt [facility] Unless otherwise noted, all lab tests performed by: Division of Pathology and Laboratory Medicine [address] [place] [phone] * GGT (09/06/2024 12:38 PM CDT) [facility] GGT (Gamma Glutamyl Transferase) 23 8 - 61 U/L 09/06/2024 1:43 PM CDT [facility] Blood Peripheral blood specimen / Unknown Venipuncture / Unknown 09/06/2024 12:38 PM CDT 09/06/2024 12:59 PM CDT You GUPTA LAB BLOOD ORDERABLES Final Resu lt [facility] Unless otherwise noted, all lab tests performed by: Division of Pathology and Laboratory Medicine [address] [place] [phone] * EKG, 12-Lead (Scheduled) (09/06/2024) Only the most recent of4 resultswithin the time period is included. You GUPTA ECG ORDERABLES Final Result Performing Organization Address City/[facility]/ZIP Co de Phone Number [facility] * (ABNORMAL) POC Glucose Screen - Fingerstick (08/29/2024 11:24 AM CDT) Only the most recent of3 resultswithin the time period is included. Glucose Screen 125(H) 70 - 99 mg/dL 08/29/2024 11:26 AM CDT [facility] POC Sample Type Capillary 08/29/2024 11:26 AM CDT [facility] Blood 08/29/2024 11:2 4 AM CDT 08/29/2024 11:26 AM CDT Narrative [facility] - 08/29/2024 11:26 AM CDT Capillary blood samples, e.g. obtained by fingerstick, may have inaccurate results in patients with decreased peripheral blood flow. Method description: All results are measured using Electrochemistry test methodology. The glucose in the sample mixes with the reagents on the test strip. The reaction produces an electric current. The amount of current produced is proportional to the glucose concentration in the blood. All POC Glucose screen test results, including critical values, must be interpreted and evaluated in the context of the patients' clinical findings. It is recommended to confirm any questionable test results by core lab methodology. You GUPTA POCT ORDERABLES - DEVICE Final Result [facility] Unless otherwise noted, all lab tests performed by: Division of Pathology and Laboratory Medicine [facility] [place] [address] * IR FL PORT PLACEMENT (08/29/2024 11:16 AM CDT) Anatomical Region Laterality Modality X-Ray Angiograph y, Ultrasound Narrative 08/29/2024 1:51 PM CDT Date of Procedure: 08/29/24 Attending Physician: Sanjuanita Hurtado MD Rail Operations Controller: None Pre-procedure Diagnosis: Pancreatic ductal adenocarcinoma Post-procedure Diagnosis: Unchanged Indication: Chemotherapy administration Title of Procedure: Right IJ power-injectable chest port placement. Port: Bard PowerPort Clearvue SLIM Implantable Port Catheter size: 8F Operative Findings: Successful percutaneous image-guided power-injectable chest port placement in the right internal jugular vein. Consent: The procedure, risks, indications and alternatives were explained. All questions were answered and informed consent was obtained. I have reviewed the history and physical dictated by the JIMENA / fellow. Sedation/Anesthesia: Anesthesia provided by Anesthesia Department. Insertion site prepped with: Chlorhexadine gluconate Procedure in Detail: A time out was performed prior to the start of the procedure and the correct patient, procedure, presence of consent, site, and side were confirmed with all members of the team. Insertion site was prepped and cleaned with aseptic technique. Sterile devices and equipment were used. Doors were closed and traffic kept to a minimum during the procedure. Skin prep agent was allowed to dry prior to procedure. Maximum sterile barriers were used including sterile gloves, gown, cap, mask and head to toe sterile cover. Hand hygiene was performed prior to insertion by all persons performing/assisting with procedure. Ultrasound evaluation of the access site demonstrated a patent and compressible vein. Lidocaine 1% was used for local anesthesia. Under ultrasound imaging guidance, a 21 gauge needle was advanced into the right internal jugular vein and the access site was scaled up to accept a micropuncture transitional dilator. An image was obtained and placed into the medical record. A wire was advanced into the inferior vena cava under fluoroscopic guidance to secure access. An appropriate site within the upper chest was determined and an incision was created. A subcutaneous pocket below the incision site was created. The subcutaneous tunnel was then created in the upper chest and the port catheter was advanced through the tunnel. The venous access site was scaled up to accept a peel-away sheath. The catheter was then advanced through the sheath, with the tip of the catheter in a satisfactory position at the SVC/atrial junction on fluoroscopy. The catheter was connected to the hub of the chest port. The chest port hub was placed within the subcutaneous pocket. Venous access incision closed with Dermabond. The port pocket incision was closed as below. Port pocket closure: The incision was approximated with multiple subdermal sutures. Dermabond was applied to the incision sites. Additional Comments: None Estimated Blood Loss: Minimal Specimens Removed: No Disposition: PACU Plan: Port Catheter positioning was confirmed with a fluoroscopic image at the conclusion of the procedure. Tip of the catheter lies at the SVC/RA junction. The port is now ready for immediate use. Patient will be contacted in 1-2 weeks for a post port placement incision check. This draft note was prepared by the JIMENA involved in the case; it was then reviewed and finalized by the attending physician. I certify my physical presence in the procedure/control room at the time of the procedure. I personally reviewed the image(s) and the JIMENA's interpretation and agree with the written report. You GUPTA [facility] IR ORDERABLES Final Result * (ABNORMAL) Basic Metabolic Panel- Total Calcium (08/26/2024 12:10 PM NUCLEAR CHEMISTRY TECHNICIAN) eGFR 110 >=60 mL/min/1.7 3 sq. m 08/26/2024 12:42 PM NUCLEAR CHEMISTRY TECHNICIAN [facility] Comment: The eGFRcr is calculated with the 2020 CKD-EPI creatinine equation using creatinine, patient's age, and sex for adults 18 years of age and older. Other factors, especially muscle mass, may affect accuracy and need to be considered. According to the Kidney Disease: Improving Global Outcomes (KDIGO) CKD Work Group 2012 Clinical Practice Guideline, chronic kidney disease (CKD) is defined as the abnormalities of kidney structure or function, present for more than 3 months, with implications for health. CKD should be classified by cause, GFR category, and albuminuria category. KDIGO guidelines provide the following GFR categories. Stage / Description / GFR mL/min/1.73 m2: G1* / Normal or high / >= 90 G2* / Mildly decreased / 60-89 G3a / Mildly to moderately decreased / 45-59 G3b / Moderately to severely decreased / 30-44 G4 / Severely decreased / 15-29 G5 / Kidney failure / <15 *In the absence of evidence of kidney damage, neither G1 nor G2 fulfill criteria for CKD. Calcium Level Total 9.7 8.2 - 10.2 mg/dL 08/26/2024 12:42 PM [facility] Sodium Level 138 136 - 145 mmol/L 08/26/2024 12:42 PM [facility] Potassium Level 4.2 3.4 - 4.5 mmol/L 08/26/2024 12:42 PM [facility] Chloride 100 98 - 107 mmol/L 08/26/2024 12:42 PM [facility] CO2 29 22 - 29 mmol/L 08/26/2024 12:42 PM [facility] Anion Gap 9 4 - 14 mmol/L 08/26/2024 12:42 PM [facility] Creatinine 0.69 0.67 - 1.17 mg/dL 08/26/2024 12:42 PM [facility] BUN 16 6 - 23 mg/dL 08/26/2024 12:42 PM [facility] Glucose Level 173(H) 70 - 99 mg/dL 08/26/2024 12:42 PM [facility] Comment: Effective 01/16/16, the glucose reference intervals have been updated based on [place] [employer] guidelines (Standards of Medical Care in Diabetes 2016. Diabetes Care 2016; 39: S13-S22). Fasting blood glucose: Normal: 70-99 mg/dL Impaired fasting glucose (increased risk for diabetes or pre-diabetes): 100-125 mg/dL Diabetes mellitus: >/=126 mg/dL Random blood glucose: Normal: 70-199 mg/dL Note: Random glucose >100 mg/dL is associated with increased risk for diabetes. Blood Peripheral blood specimen / Unknown Venipuncture / Unknown 08/26/2024 12:10 PM NUCLEAR CHEMISTRY TECHNICIAN 08/26/2024 12:12 PM [facility] us Yodit GUPTA LAB BLOOD ORDERABLES Final R esult [facility] [address] [facility] [place] [address] * Type and Screen (08/26/2024 12:10 PM NUCLEAR CHEMISTRY TECHNICIAN) Only the most recent of2 resultswithin the time period is included. ABORh O POS 08/26/2024 12:02 PM NUCLEAR CHEMISTRY TECHNICIAN [facility] ABSC Negative 08/26/2024 12:02 PM NUCLEAR CHEMISTRY TECHNICIAN [facility] Clot Expiration 08/29/2024 23:59 08/26/2024 12:02 PM NUCLEAR CHEMISTRY TECHNICIAN [facility] Historical Record Check Complete 08/26/2024 12:02 PM NUCLEAR CHEMISTRY TECHNICIAN [facility] Blood Peripheral blood specimen / Unknown Venipuncture / Unknown 08/26/2024 12:10 PM NUCLEAR CHEMISTRY TECHNICIAN 08/26/2024 12:12 PM NUCLEAR CHEMISTRY TECHNICIAN Yodit GUPTA BLOOD BANK TEST ORDERABLES F inal Result Performing Organization Address City/[facility]/ZIP Co de Phone Number [facility] [address] [id number] [place] [address] * (ABNORMAL) Hemoglobin A1c (08/26/2024 12:10 PM NUCLEAR CHEMISTRY TECHNICIAN) Only the most recent of2 resultswithin the time period is included. Hemoglobin A1c 6.4(H) 4.3 - 5.6 % 08/26/2024 12:46 PM NUCLEAR CHEMISTRY TECHNICIAN [facility] Blood Peripheral blood specimen / Unknown Venipuncture / Unknown 08/26/2024 12:10 PM NUCLEAR CHEMISTRY TECHNICIAN 08/26/2024 12:12 PM NUCLEAR CHEMISTRY TECHNICIAN Narrative [facility] - 08/26/2024 12:46 PM NUCLEAR CHEMISTRY TECHNICIAN HbA1c values >=6.5% are diagnostic of diabetes mellitus. Diagnosis should be confirmed by repeat testing. Therapeutic Action suggested: >8.0% HbA1c; Goal of therapy: <7.0% HbA1c us Yodit GUPTA LAB BLOOD ORDERABLES Final R esult [facility] Unless otherwise noted, all lab tests performed by: Division of Pathology and Laboratory Medicine [facility] [place] [address] * CT Chest Abdomen Pelvis with Contrast Pancreas (08/23/2024 4:00 PM NUCLEAR CHEMISTRY TECHNICIAN) Anatomical Region Laterality Modality Abdomen, Pelvis, Chest Computed Tomography 08/24/2024 8:42 AM NUCLEAR CHEMISTRY TECHNICIAN Impressions 08/25/2024 4:48 PM NUCLEAR CHEMISTRY TECHNICIAN 1. Large, locally advanced infiltrating pancreatic neck and body mass estimated at 7.2 cm in maximal axial dimension. Extensive vascular (arterial and venous) involvement as detailed above. 2. 2.1 cm segment 7 hepatic metastasis (path proven poorly differentiated adenocarcinoma). Additional subcentimeter low-attenuation hepatic lesions may also represent small metastatic foci. 3. No metastatic disease within the chest. 4. Enlarged prostate. 5. Mild central intrahepatic biliary dilatation. ACTIONABLE ITEMS/RECOMMENDATIONS: None. *An Actionable Finding is a finding that may be unrelated to the original reason for imaging but potentially actionable, meaning further investigation may be necessary. The Actionable Findings Vigilance Unit (AFVU) assists medical providers with responding to additional radiologic findings that are unexpected and potentially actionable. Narrative 08/25/2024 4:48 PM NUCLEAR CHEMISTRY TECHNICIAN Examination: CT CHEST ABDOMEN PELVIS W CONTRAST PANCREAS on 08/23/2024 4:00 PM. Clinical History: Pancreatic ductal adenocarcinoma. Indication: Pre-treatment restaging for metastatic PDAC. Comparison: Outside CT abdomen pelvis dated 07/05/2024. [facility] CT chest with contrast dated 07/29/2024. Technique: CT CHEST ABDOMEN PELVIS W CONTRAST PANCREAS . FINDINGS: Tubes and lines: None.. CHEST: Lymph nodes: No lymphadenopathy in the chest. Lungs: No suspicious pulmonary nodule. . No consolidation. No suspicious pulmonary nodules. Pleura: No pleural effusion. Mediastinum: No pericardial effusion. Heart size enlarged. ABDOMEN and PELVIS: Liver & biliary: Hepatic lesions as follows: 1. 2.1 x 1.5 cm low-attenuation lesion with large area of surrounding wedge- shaped arterial hyperenhancement in segment 7 on image 36 series 5. It previously measured 2.2 x 1.6 cm on image 31 series 2. 2. 2 tiny subcentimeter foci of arterial enhancement in segment 4A the largest measuring 0.4 cm, on images 25 and 27 series 5, possibly transient perfusion abnormalities. 3. Multiple tiny hypodensities scattered throughout the upper liver all identified on venous phase image 29 series 8. 4. Nonspecific wedge-shaped area of arterial hyperenhancement in the lateral segment of the left hepatic lobe adjacent to falciform ligament fissure. 5. Mild hyperenhancement about the gallbladder. Mild central intrahepatic biliary dilatation. The common bile duct is not well visualized tentatively identified estimated at 7.6 mm in diameter. The gallbladder is unremarkable. Spleen: Borderline enlarged estimated at 12.9 cm in craniocaudal dimension. Pancreas: Large irregular, infiltrating heterogeneously enhancing mass involving the pancreatic neck and proximal body with tumor extending both to the right and left of the midline, and estimated at 5.6 x 7.2 cm in AP and transverse dimensions on image 115 series 13, and 5.1 cm in craniocaudal dimension (image 38 series 11). By 0 cm in AP and transverse dimensions on the prior examination which was performed with thicker axial scans. The tumor extends superiorly into the gastrohepatic ligament and abuts the caudate and posterior left hepatic lobes without fat plane. It also abuts the posterior gastric body as seen on image 56 series 8. The pancreatic tail is diffusely atrophic, with mild dilatation of the main pancreatic duct. The pancreatic head is enlarged with extensive surrounding color circulation. Vascular: Arterial: Hepatic arterial variant(s): Replaced right hepatic artery arising from the SMA; there is marked narrowing of its proximal segment, due to tumor encasement as seen on image 54 series 5. The left hepatic artery originates from the celiac axis, and is markedly narrowed by tumor encasement as seen on image 50 series 5. It also gives off a pancreatic branch which is also encased by tumor. Degrees of circumferential involvement of arterial structures by solid soft tissue (presence of stranding will be noted). 1. Celiac artery; involved, narrowed, entirely encased by tumor. 2. Common Hepatic Artery: See above. 3. Splenic Artery, the proximal segment of the splenic artery is markedly narrowed by tumor encasement as seen on image 51 series 5; becomes normal in caliber as it courses lateral to the tumor as seen on image 49 series 5. 4. Superior Mesenteric Artery; entirely encased by tumor as seen on axial images 56 and 57 series 8. 5. The left gastric artery is markedly narrowed due to tumor encasement as seen on image 47 series 5. 6. There is abutment of the anterior proximal segment of the right renal artery on image 63 series 8. Venous: Degrees of circumferential involvement of venous structures by solid soft tissue (presence of stranding will be noted). 1. Portal Vein; occluded or severely narrowed by tumor, with cavernous transformation as identified on image 51 series 8. The left portal vein and branches are patent. The posterior branch of the right portal vein is patent. The anterior segment of the right portal vein is occluded with extensive intrahepatic cavernous transformation. 2. Splenoportal-SMV confluence: Occluded due to tumor encasement. 3. Splenic Vein: Patent at the splenic hilum with extensive perigastric and right abdominal collateral circulation, with splenoportal shunting. 4. Superior Mesenteric Vein: The 5.2 cm segment proximal to the portal splenic confluence is dilated and patent, however, occluded at the level of the pancreatic mass with extensive collateral circulation via peripancreatic/periportal collaterals with mesenteric veins draining into the portal system but extensive peripancreatic collateral circulation. 5. The left renal vein is markedly narrowed as it crosses anterior to the abdominal aorta, due to encasement by tumor as seen on image 59 series 5. There is moderate dilatation of the left renal vein proximal to the area of narrowing. Adrenals: No suspicious adrenal lesions, however, there is tumor abutment of the apex of the left adrenal gland. Kidneys, Ureters, Bladder: No hydronephrosis. No suspicious renal lesion. 1.5 cm simple cyst in the posterior interpolar region of the left kidney. No bladder mass. Lymph nodes: Numerous mildly enlarged mesenteric lymph nodes as seen on axial image 68 series 19. Suspect diana hepatis lymph nodes, however, difficult to measure due to the presence of extensive mass. A few mildly prominent retroperitoneal lymph nodes are present, the largest measuring 0.8 cm in short axis with a fatty hilum on image 82 series 19. GI tract: No dilated bowel. Small paraesophageal hiatal hernia. Peritoneum: Trace free fluid within the pelvis and paracolic gutters. Vessels: No abdominal aortic aneurysm. Musculoskeletal: Scattered degenerative changes. Mid thoracic DISH. Small sclerotic lesions in the right facet and 9th ribs suggestive of bone islands. Pelvic Organs: The prostate is enlarged with heterogeneous attenuation punctate calcifications, measuring approximately 5.7 cm in transverse dimension. Procedure Note Lm Momin MD - 08/25/2024 Examination: CT CHEST ABDOMEN PELVIS W CONTRAST PANCREAS on 08/23/2024 4:00PM. Clinical History: Pancreatic ductal adenocarcinoma. Indication: Pre-treatment restaging for metastatic PDAC. Comparison: Outside CT abdomen pelvis dated 07/05/2024. [facility] with [facility] dated 07/29/2024. Technique: CT CHEST ABDOMEN PELVIS W CONTRAST PANCREAS . FINDINGS: Tubes and lines: None.. CHEST: Lymph nodes: No lymphadenopathy in the chest. Lungs: No suspicious pulmonary nodule. . No consolidation. No suspiciouspulmonary nodules. Pleura: No pleural effusion. Mediastinum: No pericardial effusion. Heart size enlarged. ABDOMEN and PELVIS: Liver & biliary: Hepatic lesions as follows: 1. 2.1 x 1.5 cm low-attenuation lesion with large area of surroundingwedge- shaped arterial hyperenhancement in segment 7 on image 36 series 5.It previously measured 2.2 x 1.6 cm on image 31 series 2. 2. 2 tiny subcentimeter foci of arterial enhancement in segment 4A thelargest measuring 0.4 cm, on images 25 and 27 series 5, possibly transientperfusion abnormalities. 3. Multiple tiny hypodensities scattered throughout the upper liver allidentified on venous phase image 29 series 8. 4. Nonspecific wedge-shaped area of arterial hyperenhancement in thelateral segment of the left hepatic lobe adjacent to falciform ligamentfissure. 5. Mild hyperenhancement about the gallbladder. Mild central intrahepatic biliary dilatation. The common bile duct is notwell visualized tentatively identified estimated at 7.6 mm in diameter.The gallbladder is unremarkable. Spleen: Borderline enlarged estimated at 12.9 cm in craniocaudaldimension. Pancreas: Large irregular, infiltrating heterogeneously enhancing massinvolving the pancreatic neck and proximal body with tumor extending bothto the right and left of the midline, and estimated at 5.6 x 7.2 cm in APand transverse dimensions on image 115 series 13, and 5.1 cm incraniocaudal dimension (image 38 series 11). By 0 cm in AP and transversedimensions on the prior examination which was performed with thicker axialscans. The tumor extends superiorly into the gastrohepatic ligament andabuts the caudate and posterior left hepatic lobes without fat plane. Italso abuts the posterior gastric body as seen on image 56 series 8. Thepancreatic tail is diffusely atrophic, with mild dilatation of the mainpancreatic duct. The pancreatic head is enlarged with extensivesurrounding color circulation. Vascular: Arterial: Hepatic arterial variant(s): Replaced right hepatic artery arising fromthe SMA; there is marked narrowing of its proximal segment, due to tumorencasement as seen on image 54 series 5. The left hepatic artery originates from the celiac axis, and is markedlynarrowed by tumor encasement as seen on image 50 series 5. It also givesoff a pancreatic branch which is also encased by tumor. Degrees of circumferential involvement of arterial structures by solidsoft tissue (presence of stranding will be noted). 1. Celiac artery; involved, narrowed, entirely encased by tumor. 2. Common Hepatic Artery: See above. 3. Splenic Artery, the proximal segment of the splenic artery is markedlynarrowed by tumor encasement as seen on image 51 series 5; becomes normalin caliber as it courses lateral to the tumor as seen on image 49 series5. 4. Superior Mesenteric Artery; entirely encased by tumor as seen on axialimages 56 and 57 series 8. 5. The left gastric artery is markedly narrowed due to tumor encasement asseen on image 47 series 5. 6. There is abutment of the anterior proximal segment of the right renalartery on image 63 series 8. Venous: Degrees of circumferential involvement of venous structures by solid softtissue (presence of stranding will be noted). 1. Portal Vein; occluded or severely narrowed by tumor, with cavernoustransformation as identified on image 51 series 8. The left portal veinand branches are patent. The posterior branch of the right portal vein ispatent. The anterior segment of the right portal vein is occluded withextensive intrahepatic cavernous transformation. 2. Splenoportal-SMV confluence: Occluded due to tumor encasement. 3. Splenic Vein: Patent at the splenic hilum with extensive perigastricand right abdominal collateral circulation, with splenoportal shunting. 4. Superior Mesenteric Vein: The 5.2 cm segment proximal to the portalsplenic confluence is dilated and patent, however, occluded at the levelof the pancreatic mass with extensive collateral circulation viaperipancreatic/periportal collaterals with mesenteric veins draining intothe portal system but extensive peripancreatic collateral circulation. 5. The left renal vein is markedly narrowed as it crosses anterior to theabdominal aorta, due to encasement by tumor as seen on image 59 series 5.There is moderate dilatation of the left renal vein proximal to the areaof narrowing. Adrenals: No suspicious adrenal lesions, however, there is tumor abutmentof the apex of the left adrenal gland. Kidneys, Ureters, Bladder: No hydronephrosis. No suspicious renal lesion.1.5 cm simple cyst in the posterior interpolar region of the left kidney.No bladder mass. Lymph nodes: Numerous mildly enlarged mesenteric lymph nodes as seen onaxial image 68 series 19. Suspect diana hepatis lymph nodes, however,difficult to measure due to the presence of extensive mass. A few mildlyprominent retroperitoneal lymph nodes are present, the largest measuring0.8 cm in short axis with a fatty hilum on image 82 series 19. GI tract: No dilated bowel. Small paraesophageal hiatal hernia. Peritoneum: Trace free fluid within the pelvis and paracolic gutters. Vessels: No abdominal aortic aneurysm. Musculoskeletal: Scattered degenerative changes. Mid thoracic DISH. Smallsclerotic lesions in the right facet and 9th ribs suggestive of boneislands. Pelvic Organs: The prostate is enlarged with heterogeneous attenuationpunctate calcifications, measuring approximately 5.7 cm in transversedimension. IMPRESSION: 1. Large, locally advanced infiltrating pancreatic neck and body massestimated at 7.2 cm in maximal axial dimension. Extensive vascular(arterial and venous) involvement as detailed above. 2. 2.1 cm segment 7 hepatic metastasis (path proven poorly differentiatedadenocarcinoma). Additional subcentimeter low-attenuation hepatic lesionsmay also represent small metastatic foci. 3. No metastatic disease within the chest. 4. Enlarged prostate. 5. Mild central intrahepatic biliary dilatation. ACTIONABLE ITEMS/RECOMMENDATIONS: None. *An Actionable Finding is a finding that may be unrelated to the originalreason for imaging but potentially actionable, meaning furtherinvestigation may be necessary. The Actionable Findings Vigilance Unit(AFVU) assists medical providers with responding to additional radiologicfindings that are unexpected and potentially actionable. You GUPTA IMG CT ORDERABLES Final Result * POC Creatinine (08/23/2024 2:21 PM NUCLEAR CHEMISTRY TECHNICIAN) POC Creatinine 0.9 0.6 - 1.3 mg/dL 08/23/2024 2:22 PM [facility] Comment:Medications, especia lly hydroxyurea or supplements, such as ascorbate, can interfere with test results causing a falsely and significantly higher result than expected. If a problem is suspected with a patient's result, a sample should be sent to the laboratory for confirmatory testing. POC eGFR 101 >=60 mL/min/1.7 3 sq. m 08/23/2024 2:22 PM [facility] Comment: The eGFRcr is calculated with the 2020 CKD-EPI creatinine equation using creatinine, patient's age, and sex for adults 18 years of age and older. Other factors, especially muscle mass, may affect accuracy and need to be considered. According to the Kidney Disease: Improving Global Outcomes (KDIGO) CKD Work Group 2012 Clinical Practice Guideline, chronic kidney disease (CKD) is defined as the abnormalities of kidney structure or function, present for more than 3 months, with implications for health. CKD should be classified by cause, GFR category, and albuminuria category. KDIGO guidelines provide the following GFR categories. Stage / Description / GFR mL/min/1.73 m2: G1* / Normal or high / >= 90 G2* / Mildly decreased / 60-89 G3a / Mildly to moderately decreased / 45-59 G3b / Moderately to severely decreased / 30-44 G4 / Severely decreased / 15-29 G5 / Kidney failure / <15 *In the absence of evidence of kidney damage, neither G1 nor G2 fulfill criteria for CKD. Blood 08/23/2024 2:21 PM NUCLEAR CHEMISTRY TECHNICIAN 08/23/2024 2:22 PM NUCLEAR CHEMISTRY TECHNICIAN [facility] - 08/23/2024 2:22 PM NUCLEAR CHEMISTRY TECHNICIAN Method description: The i-STAT is an analyzer used for in vitro quantification of various analytes in whole blood. The device uses a single disposable cartridge which contains microfabricated sensors, a calibration solution, fluidics system, and a waste chamber. Each test cartridge contains chemically sensitive biosensors on a silicon chip that are configured to perform specific tests. The microfabricated sensors measure analyte concentration by an electrochemical assay. You GUPTA POCT ORDERABLES - DEVICE Final Result [facility] [address] [id number] [place] [address] * MARILIA CUMMINS Liquid Biopsy Normal (08/23/2024 12:33 PM NUCLEAR CHEMISTRY TECHNICIAN) Blood Peripheral blood specimen / Unknown Venipuncture / Unknown 08/23/2024 12:33 PM NUCLEAR CHEMISTRY TECHNICIAN 08/23/2024 12:52 PM NUCLEAR CHEMISTRY TECHNICIAN You GUPTA MDA CP BIOMARKER WORKUPS Final Result [facility] [address] [place] [address] * MD MARILIA CUMMINS - Liquid Biopsy (Mutation Analysis Precision Panel-LB) (08/23/2024 12:33 PM NUCLEAR CHEMISTRY TECHNICIAN) Interpretation Brittni [id number] SNVs/Indels CNVs Fusions SOS1 None None Somatic Mutations (SNVs/Indels) Gene DNA Protein Location VAF Type SOS1 c.1310T>C p.I437T Exon 10 1% SNV - Missense Copy Number Variations (CNVs) None Identified Gene Fusions None Identified Clinical test requisition for mutation studies on the following genes was received: APC, BRAF, NRAS, PIK3CA, TP53 COMMENTS: Cancer type: Pancreatic adenocarcinoma Comparison with tissue sequencing: in progress The selection and classification of variants for reporting incorporates review of available clinicopathologic information, correlation with current clinical presentation, any consultations with additional healthcare providers and exercise of medical judgement by the sign-out pathologist. GUIDE TO STANDARDIZED NOMENCLATURE AND EXPLANATION OF CHANGES: Variants identified are described using an implementation of a standardized nomenclature developed by the Human Genome Variation Society (HGVS, http://www.hgvs.org /varnomen/). The normative Genbank gene reference sequence identifier and gene symbol in parentheses are provided, followed by the coding DNA sequence change (e.g., "c. 200A>G", which would mean that the position 200 adenine is changed to guanine), and then the inferred protein change (e.g., "p. V35C", which would mean that the amino acid at codon 35 is changed from valine to cysteine). Additional explanations for the DNA and protein changes seen in the current specimen are shown in the following tables: Explanation of DNA variant/mutation types seen in this specimen DNA Change SNV A single nucleotide difference (point mutation) has been identified in the patient sample relative to the reference wild-type gene sequence Explanation of protein variant/mutation types seen in this specimen Protein Change Missense A single amino acid residue change in the patient sample relative to the reference wild-type protein sequence Additional information on genes/variants with findings identified on this assay: Gene Genomic Variant COSMIC dbSNP ClinVar SOS1 [id number] A>G c.1310T>C p.I437T [id number] Link to COSMIC: https://cancer.[facility].ac.uk/cosmic Link to dbSNP: https://www.ncbi.[facility].nih.gov/snp Link to ClinVar: https://www.ncbi.[facility].nih.gov/clinvar Methodology: Test Description: The [facility] Mutation Analysis Precision Panel Liquid Biopsy (MDA PLACIDO LB) assay is a custom high-throughput next generation sequencing-based CLIA assay that uses targeted hybridization-based capture technology for detection of sequence variants/mutations in 701 genes (single nucleotide variants [SNVs] and insertion/deletion alterations [indels]), copy number variants (CNVs) in 19 genes and select gene rearrangements in 34 genes (Fusions) in cell-free DNA (cfDNA) isolated from plasma specimens (See Appendix Table 1 and 2). MDA PLACIDO LB employs DNA extracted from both plasma and paired peripheral blood mononuclear cells (PBMC) specimens in our CLIA-certified molecular diagnostic laboratory. Routinely collected blood samples are the accepted specimen types. Thirty nanograms of cfDNA is recommended, with a minimum accepted 20ng of genomic DNA, which undergoes whole-genome library construction with adapters carrying Unique Molecular Indices (DEBRA) allowing tagging of original double-stranded DNA that facilitates statistical reconstruction of reads sequenced as duplicates from a single-amplified genome. A target area of 2.1 megabases (Mb) GRCh37/hg19 genome is enriched with custom hybrid-capture, 120nt dsDNA probes. MDA PLACIDO LB assay uses the Wavemaker Software next generation sequencing platform and bidirectional paired-end sequencing to identify nucleic acid variants for all coding regions from most genes in the panel, the TERT promoter, 1 non-coding RNA gene (TERC), and clinically relevant rearrangements. Reported somatic mutations are identified by comparison to the human genome reference sequence GRCh37/hg19 and reviewed in dev9k against a process-matched normal control. Data analysis is performed in house by the [employer] Bioinformatics pipeline (BIP) which relies on the dual-duplex molecular barcoding for consensus analysis to reduce sequencing artifacts and achieve greater sensitivity and positive predictive value. [employer] is intended to provide tumor mutation profiling in accordance with institutional guidelines in oncology for patients with solid malignant neoplasms. Report annotation and software: A post-variant calling analysis and annotation tool, dev9k version 2.1.0.9, was used in the construction of this report. The following additional software tools were utilized in the experimental setup and bioinformatic analysis: [employer]Mail Control Software 1.8, RippleFunction Real Time Analysis Software 3.4.4, Spotify.2 and Snapverse BIP v2.0. Detailed information about the signal-processing, base calling, alignment, and variant calling algorithms are available upon request. Test performance specifications: For this assay, sensitivity of detection is related in part to depth of coverage and the amount of input cfDNA. We determined the effective lower limit of detection of this assay (analytical sensitivity) for single nucleotide variations, insertions/deletion s and gene fusions to be 0.5% variant allelic frequency (VAF) for 30ng cfDNA input and 1% VAF for 10ng cfDNA input by taking into consideration the depth of coverage at a given base. Sensitivity for amplifications depends on both input cfDNA and the amplitude of the gene amplification. The presence of amplification is determined by individual gene Z-score and copy number threshold derived from healthy normal cfDNA. A nominal threshold of 2.5 copies is used to restrict reporting to high-confidence calls. Limitations of the test: - Snapverse requires normal non-tumor DNA, typically isolated from the PBMCs from the same collection tube, for appropriate interpretation of somatic mutations. - Silent mutations (mutations that do not result in an amino acid change) are not reported. - The primary purpose of this panel is to detect somatic mutations in genes involved in oncogenesis of this patient s tumor. The test or the results thereof should not be used to detect germline variants for hereditary cancer syndromes. If a hereditary cancer syndrome is suspected, separate testing of a germline sample should be performed using an appropriate assay. - Variants detected below Limits of Detection (LoD) not deemed to be confirmable by independent, orthogonal methods and/or in significant discordance with the tumor fraction in the tested sample may be excluded as the clinical significance and reliability of such low-level mutation calls is not clear. - The assay is designed to detect point mutations, insertion/deletions , copy number gains (amplifications) and gene fusions. - The assay does not detect copy number losses. - Quality and quantity of cfDNA can influence variant detection. - False negative results can be obtained at low cfDNA inputs. - Copy number gains below 2.5 cut-off not confirmable by independent, orthogonal methods may be excluded as the clinical significance and reliability of such low-level calls are not clear. Correlation with traditional methods of copy number assessment such as fluorescent in situ hybridization (FISH) on tumor tissue is recommended if clinical action based on findings is being considered. - Since hematopoietic cells can also contribute to cfDNA, the possibility that any mutation detected may represent clonal hematopoiesis of indeterminate potential (CHIP) or a clonal hematologic disorder cannot be ruled out. - The results of MDA PLACIDO LB genomic testing should be correlated with all available and applicable clinicopathologic information by the treating physician in clinical decision making. Sequencing coverage of the genes: The following table describes the extent and adequacy of coverage for ordered genes only. Covered genes/exons/codons are defined as those having total coverage depth of greater than or equal to 1000 NWE-miswv-rustjddzy collapsed reads (minimum 1000x coverage). Mutations in ordered genes outside the optimally covered regions listed below may be detected with diminished sensitivity and cannot be ruled out. Coverage information for non-ordered genes for this sample is complex and lengthy but may be requested from the laboratory if required for clinical care or correlative purposes. Coverage for ordered genes and codon(s) tested with a minimum of 1000x coverage Gene Exons (codons) tested APC (NM_000038) 2-16 (3574) BRAF (NM_004333) 1-18 (767) NRAS (NM_002524) 2-5 (1-190) PIK3CA (NM_006218) 2-21 (1-1069) TP53 (NM_000546) 2-11 (1-394) APPENDIX: Table 1: Genes of interest for SNVs, INDELs and CNVs ABL1 ABL2 ABRAXAS1 ACVR1 ACVR1B ACVR2A ADGRA2 AJUBA AKT1 AKT2 AKT3 AKTIP ALK ULJQ42M AMER1 ANKRD11 APC AR* ARAF ARFRP1 ARID1A ARID1B ARID2 ARID5B ASCC3 ASPM ASXL1 ASXL2 BREE ATR ATRIP ATRX AURKA AURKB AURKC AXIN1 AXIN2 PETE B2M BAP1 BARD1 BAZ2A BBC3 BCL10 BCL11A BCL2 BCL2L1 ZBY5W25 BCL2L2 BCL6 BCL7A BCOR BCORL1 BCR BIRC2 BIRC3 BLM BLNK BMPR1A BRAF* BRCA1 BRCA2 BRCC3 BRD4 BRIP1 BTG1 BTG2 BTK BUB1 CALR CARD11 CASP8 CBFB CBL CCKAR CCN6 CCNA2 CCND1* CCND2* CCND3 CCNE1* CCNE2 CCR4 CCR7 CD274 CD276 CD28 CD58 CD74 CD79A CD79B CD8A CDC20 CDC27 CDC42 CDC6 CDC73 CDH1 CDK12 CDK2 CDK4* CDK6* CDK8 CDKN1A CDKN1B CDKN2A CDKN2B CDKN2C CEBPA CENPA CENPE CHAF1A CHD2 CHEK1 CHEK2 CHTF8 CIC CIITA CNOT3 COL2A1 COP1 CREBBP CRKL CRLF2 CSF1R CSF3R CTCF CTLA4 CTNNA1 CTNNB1 CUL3 CUL4A CUL4B CUX1 CXCR4 CYLD KVH8V03 DAXX HQLTD0E AHJF8H8 DDB1 DDR1 DDR2 DDX3X DICER1 DIS3 DIS3L2 DLL3 DNA2 DNAJB1 DNMT1 DNMT3A DNMT3B DOT1L DUSP2 E2F3 EED EGFL7 EGFR* EGR1 EGR2 EIF1AX EIF4A2 EIF4E ELF3 ELF4 ELOC EMSY ENO1 EP300 EPCAM EPHA2 EPHA3 EPHA5 EPHA7 EPHB1 EPHB4 ERBB2* ERBB3 ERBB4 ERCC1 ERCC2 ERCC3 ERCC4 ERCC5 ERCC6 ERG ERRFI1 ESR1 ETV1 ETV4 ETV5 ETV6 EWSR1 EXO1 EZH2 FADD FAM50A FANCA FANCC FANCD2 FANCE FANCF FANCG FANCI FANCL FANCM FAS FAT1 FBXW7 FGF10 FGF14 FGF19 FGF23 FGF3 FGF4 FGF5 FGF6 FGF9 FGFR1* FGFR2* FGFR3* FGFR4 FH FLCN FLT1 FLT3 FLT4 FOXA1 FOXL2 FOXO1 FOXP1 FRS2 FTO FUBP1 FYN FZR1 GABRA6 PGLJ65O GATA1 GATA2 GATA3 GATA4 GATA6 GEN1 GID4 GLI1 GNA11 GNA13 GNAQ GNAS YBO323 GPS2 GREM1 GRIN2A GRM3 GSK3B H1-2 H1-4 H2AX H2BC5 H3-3A H3-3B H3-4 H3-5 H3C1 H3C10 H3C11 H3C12 H3C13 H3C2 H3C3 H3C4 H3C6 H3C7 H3C8 HDAC2 HDAC9 HELQ HERC2 HFM1 HGF HLA-A HLA-B HLA-C HMGA2 HNF1A HOXB13 HRAS HSD3B1 AJZ92SI7 OMD44JF0 HUWE1 HVCN1 ICOSLG ID3 IDH1 IDH2 IFNGR1 IGF1 IGF1R IGF2 IGLL5 IKBKE IKZF1 IKZF3 IL10 IL2RG IL7R INHA INHBA INO80 INPP4A INPP4B INSR IRAK1 IRF2 IRF4 IRF8 IRS1 IRS2 ITPKB JAK1 JAK2 JAK3 SHWETA KAT6A KDM3B KDM5A KDM5C KDM6A KDR KEAP1 WEI KIT* KLF2 KLF4 KLHL6 KMT2A KMT2B KMT2C KMT2D KNSTRN KRAS* LATS1 LATS2 LCK LIG4 LMO1 LRP1B LTB LTK ELIZABETH MAD2L2 MAGOH MALT1 MAP2K1 MAP2K2 MAP2K4 MAP2K7 MAP3K1 BLD9S66 WQC8P36 MAP3K4 MAPK1 MAPK3 MAPK8 MAX MCL1 MDC1 MDM2 MDM4 MED12 MEF2B MEN1 MERTK MET* MFHAS1 MGA MGMT MITF MLH1 MLH3 MPL MRE11 MSH2 MSH3 MSH6 MST1 MST1R MTAP MTOR MUSK MUTYH MXD4 MYB MYBL1 MYC* MYCL MYCN MYD88 MYOD1 NBN NCOA3 NCOR1 NEGR1 NF1 NF2 NFE2L2 NFKB2 NFKBIA NFKBIE NGFR NHEJ1 NKX2-1 NKX3-1 NOTCH1 NOTCH2 NOTCH3 NOTCH4 NPM1 NRAS NSD1 NSD2 NSD3 NT5C2 NTHL1 NTRK1 NTRK2 NTRK3 NUP93 NUTM1 NXF1 P2RY8 PAK1 PAK3 PAK5 PALB2 PARP1 PARP2 PARP3 PARP4 PARPBP PAX5 PAXX PBRM1 PCBP1 PCNA PDCD1 JOCL9TX7 PDGFB PDGFRA* PDGFRB PDK1 PER1 PGD PGR PHF6 PHOX2B YJS2P8C RZC0S2D PIK3C3 PIK3CA* PIK3CB PIK3CD PIK3CG PIK3R1 PIK3R2 PIK3R3 PIM1 PLCG1 PLCG2 PLEKHG5 PLK2 PMAIP1 PML PMS1 PMS2 PNKP PNRC1 POLA1 POLD1 POLE POLQ POT1 PPARG PPM1D WNW4M8C XJQ1B6L DWH4F3Y PPP4R4 PPP6C PRAME PRC1 PRDM1 PREX2 PRG4 ESIOK8A PRKCI PRKD1 PRKDC PRKN PTCH1 PTEN PTK2 PTPN1 PTPN11 PTPRB PTPRD PTPRS PTPRT QKI RAB35 RAC1 RAD17 RAD21 RAD50 RAD51 NSU79QZ2 RAD51B RAD51C RAD51D RAD52 RAD54L RAF1* MARELY RASA1 RASSF1 RB1 RBM10 RBMX RECQL4 REL RELN REST RET REV3L RFC1 RFC2 RFC3 RFC4 RFC5 RFTN1 RHEB RHOA RICTOR RIF1 RIPK1 RIT1 RMI1 RMI2 RNF43 ROR1 ROS1 RPA1 RPA2 RPA3 RPA4 RPS15 SRJ1CW4 VUA8DY8 KHN4TX7 RPTOR RRAGC RRAS RSPO1 RSPO2 RUNX1 OKZT1W4 RYBP RYK S1PR1 S1PR2 SAMHD1 SDHA SDHAF2 SDHB SDHC SDHD SESN1 SETBP1 SETD2 SETDB1 SF3B1 SGK1 SH2B3 SH2D1A SHLD1 SHLD2 SHLD3 SHPRH SHQ1 MMN16H3 SLIT2 SLX4 SMAD2 SMAD3 SMAD4 SMARCA2 SMARCA4 SMARCAD1 SMARCB1 SMARCD1 SMC1A SMC3 SMC5 SMC6 SMO SNCAIP SOCS1 SOS1 SOX10 SOX11 SOX17 SOX2 SOX9 SP140 SPEN SPOP SRC SRSF2 SSBP1 STAG2 STAT3 STAT4 STAT5A STAT5B STAT6 STK11 STK19 STK40 SUFU SUZ12 SYK TBC1D4 NYT4DA7 TBX3 TCF3 TCF7L2 DAMIAN TENT5C TERC TERT^ TET1 TET2 TFE3 TFEB TGFB1 TGFBR1 TGFBR2 IXBN486 FZQO49J TMPRSS2 TNF TNFAIP3 XLBOHB41 TOP1 TOP2A TOP3A TOPBP1 TP53 LM41DA6 TP53I3 TP63 TRAF2 TRAF3 TRAF6 TRAF7 WLDOOH65 TRIM28 TRIM37 TSC1 TSC2 TSHR TSPAN31 TTK TYRO3 U2AF1 UBR5 VAV1 VEGFA VHL VTCN1 WRN WT1 XIAP XPO1 XPO5 XRCC2 XRCC3 XRCC4 XRCC5 XRCC6 YAP1 YES1 ZFAT ZFHX3 ZMYM3 PBA639 TEZ617 ZRSR2 *Gene included for CNV reporting ^ Includes promoter region ncRNA Gene Table 2. Genes with select intronic regions for the detection of DNA-based gene rearrangements ALK introns: 18-19 BRCA2 introns: 2 ETV4 introns: 5-6 EZR introns: 9-11 KIT introns: 16 MYB introns: 14 NTRK2 introns: 12 MARELY introns: 2 SDC4 introns: 2 BCR introns: 7-10 CD74 introns: 6-8 ETV5 introns: 6-7 FGFR1 introns: 1,5,17 KMT2A introns: 6-11 MYC introns: 1 NUTM1 introns: 1 RET introns: 7-11 OEW86L2 introns: 4 BRAF introns: 7-10 EGFR introns: 7,15,24-27 ETV6 introns: 5-6 FGFR2 introns: 1,17 MET* introns 13,14 NOTCH2 introns: 26 PDGFRA introns: 7,9,11 ROS1 introns: 31-35 TMPRSS2 introns: 1-3 BRCA1 introns: 2,7-8,12,16,19-20 EML4 introns: 6,13 EWSR1 introns: 7-13 FGFR3 introns: 17 MSH2 introns: 5 NTRK1 introns: 8-10 RAF1 introns: 4-8 RSPO2 introns: 1 *Targeted for MET exon 14 skipping assessment DISCLAIMER: This test was developed and its performance characteristics determined by the [facility] ([facility]) [facility]. It has not been cleared by the U.S. Food and Drug Administration. However, such approval is not required for clinical implementation, and the test results on the ordered genes have been shown to be clinically useful. This laboratory is CAP accredited and CLIA certified to perform high complexity molecular testing for clinical purposes. 08/31/2024 2:20 PM CDT [facility] Pathologist Signature . Test performed on 08/31/2024 08/31/2024 2:20 PM CDT MOLECULAR DIAGNOSTICS Blood Peripheral blood specimen / Unknown Venipuncture / Unknown 08/23/2024 12:33 PM NUCLEAR CHEMISTRY TECHNICIAN 08/23/2024 12:52 PM NUCLEAR CHEMISTRY TECHNICIAN Narrative This result has genomic variants that were not included in this document. us You [facility] DIAGNOST[facility] (Kitty Regan MD) Final Result [facility] MOLECULAR DIAGNOSTICS [facility] [address] [place] [address] * IHC Workup (08/23/2024 10:46 AM NUCLEAR CHEMISTRY TECHNICIAN) Tissue 08/23/2024 10:4 6 AM NUCLEAR CHEMISTRY TECHNICIAN 08/23/2024 10:46 AM NUCLEAR CHEMISTRY TECHNICIAN us You [facility] BIOMARKER ORDERABLES Fin al Result [facility] [address] [place] [address], [place] * MD [facility] - Tissue (Mutation Analysis Precision Panel-Tissue) (08/23/2024 10:46 AM NUCLEAR CHEMISTRY TECHNICIAN) Source Material [id number] 3:56 PM CDT [facility] Tumor Block A1 09/06/2024 3:56 PM CDT [facility] *Normal Control Material PB 09/06/2024 3:56 PM CDT MOLECULAR DIAGNOSTICS Interpretation Brittni [id number] [facility] - Tissue (Mutation Analysis Precision Panel) Report A. SPECIMEN INFORMATION Estimated tumor %: 22% Source material: [id number] Collected: 08/23/2024 Tumor block: A1 Received: 08/24/2024 Cancer type: Pancreatic Adenocarcinoma Ordering provider: ALONSO Galan ACTIONABLE FINDINGS (for details, see D. Clinical Interpretation) Signature Result Actionability Level of Evidence Tumor mutational burden (TMB) 1 mut/Mb n/a n/a Microsatellite instability (MSI) ЕЛЕНА n/a n/a Tier 1 Somatic variants of strong clinical significance (e.g. FDA label or Guideline-recommend ed in this tumor type): None identified Tier 2 Somatic variants of potential clinical significance (e.g. FDA label or Guideline-recommend ed in another tumor type): None identified Pertinent Negatives (i.e. ordered genes where Tier 1/2 annotated mutations were not detected): BREE, BRCA1, ERBB2, FGFR2, KRAS C. ADDITIONAL FINDINGS Additional somatic variants (e.g. potentially actionable variants, or variants of unknown [Tier 3] or benign [Tier 4] clinical significance): Gene Alteration Type Location VAF SMARCB1 p.L54fs*5 [id number] Frameshift Exon 2 18% D. CLINICAL INTERPRETATION Comment: The selection and classification of variants for reporting incorporates review of available clinicopathologic information, correlation with current clinical presentation, any consultations with additional healthcare providers and exercise of medical judgement by the signout pathologist. 1. Findings with FDA Indications or Professional Guideline Recommendations in Patient's Tumor Type None Identified 2. Findings with FDA Indications or Professional Guideline Recommendations in Other Tumor Types None Identified 3. Biomarker Summary and Functional Annotations for Select Variants SMARCB1 p.L54fs*5 Functional significance: Inactivating: Inferred Biomarker summary: SMARCB1 (INI1) is a core subunit of the SWI/SNF chromatin remodeling complex that regulates gene house sitter, subsequently regulating numerous biological pathways, such as cyclin D1/CDK4, sonic hedgehog, Wnt/beta-catenin, and c-Myc activity ([PMID:50792153]). SMARCB1 is an identified tumor suppressor gene, and mbku-bj-tubvjgga mutations have been identified in numerous cancers, as well as inactivating germline variants that predispose individuals to several tumor predisposition syndromes ([PMID:17288666]). Functional annotation: This alteration results in premature truncation of the SMARCB1 protein within or upstream of essential domains. Essential domains include the DNA-binding region (amino acids 1-113, UniProt, [PMID:51505752]; [PMID:72323412]), the two imperfect repeats (amino acids 186-319; UniProt, [PMID:94859483]; [PMID:85485199]; [PMID:58978637]), and the coiled-coil C-terminal domain (amino acids 335-378; [PMID:97796202]). Disruption or loss of any significant portion of these domains is expected to result in vvdp-bg-ejvhkzbb. Thus, we infer this alteration is inactivating. - Interpretation of clinical actionability was based on the biomarker and cancer type, and used the precision oncology decision support system at [facility] (PMID: 32671492). These interpretations do not take into account treatment history of staging, are applicable as of this report's date, and may change in the future. The clinical significance categories (tiers) for somatic variants were reported using the 2017 AMP/ASCO/CAP guidelines (PMID: 2950609). - For variants therapeutic annotations beyond Tier 1 or Tier 2, providers may explore clinical trial matching options and request additional annotation at [email or web address]. Clinical test requisition for mutation studies on the following genes was received: BREE, BRCA1, ERBB2, FGFR2, KRAS E. METHODOLOGY Test Description: The [facility] Mutation Analysis Precision Panel ([facility]) assay is a custom high-throughput next generation sequencing-based CLIA assay that uses targeted hybridization-based capture technology for detection of sequence variants/mutations in 610 genes (single nucleotide variants [SNVs] and insertion/deletion alterations [indels]), copy number variants (CNVs) in 583 genes, select gene rearrangements in 34 genes (Fusions), and selected genomic immuno-oncology signatures including microsatellite instability (MSI) and tumor mutational burden (TMB) in DNA isolated from formalin-fixed paraffin embedded (FFPE) tumor tissue and cytology specimens (See Appendix Table 1 and 2). [facility] employs DNA extracted from both tumor tissue and paired normal (blood or tissue) specimens in our CLIA-certified molecular diagnostic laboratory. Routine paraffin-embedded tissue from surgical resection specimens, core needle biopsies and fine needle aspirate (cell blocks and cytology smears) are accepted specimen types. A minimum of 50 ng of genomic DNA undergoes whole-genome library construction with adapters carrying Unique Molecular Indices (DEBRA) allowing tagging of original double-stranded DNA that facilitates statistical reconstruction of reads sequenced as duplicates from a single-amplified genome. A target area of 2.1 megabases (Mb) hg19 genome is enriched with custom hybrid-capture, 120nt dsDNA probes. [facility] assay uses the Wave[employer] Software next generation sequencing platform and bidirectional paired-end sequencing to identify nucleic acid variants for all coding regions from most genes in the panel, the TERT promoter, 1 non-coding RNA gene, and clinically relevant rearrangements. Reported somatic mutations are identified by comparison to the human genome reference sequence GRCh37/hg19 and reviewed in dev9k against a process-matched normal control. Data analysis is performed in house by the [employer] Bioinformatics pipeline (BIP) which relies on the dual-duplex molecular barcoding for consensus analysis to reduce sequencing artifacts and achieve greater sensitivity and positive predictive value. [facility] is intended to provide tumor mutation profiling in accordance with institutional guidelines in oncology for patients with solid malignant neoplasms. Report annotation and software: A post-variant calling analysis and annotation tool, dev9k 2.1.0.9, was used in the construction of this report. The following additional software tools were utilized in the experimental setup and bioinformatic analysis: [employer] Software 1.7, RippleFunction Real Time Analysis Software 3.4.4, [employer] Best [employer].2 and [employer] BIP v1.0. Detailed information about the signal-processing, basecalling, alignment, and variant calling algorithms are available upon request. Variants identified are described using an implementation of a standardized nomenclature developed by the Human Genome Variation Society (HGVS, http://www.hgvs.org /varnomen/). A decision-support/Mobile Accord application programming interface (Energate 7.1.2) was used in the annotation of genomic observations in this report. Test performance specifications: The tumor cellularity in the sample submitted is assessed by a combination of direct morphologic assessment and/or immunophenotypic evaluation as part of the pathology workup. For this assay, sensitivity of detection is related in part to depth of coverage, tumor cellularity, and allelic frequency for the mutation. Although the NGS platform is capable of achieving a much higher analytical sensitivity, for clinical purposes, at around 50 ng input DNA and a minimum of 20% tumor cellularity, we determined the effective lower limit of detection (LoD) for SNVs and INDELs of 5% mutation allelic frequency (one mutant allele in the background of nineteen wild type alleles), 5 fusion breakpoint molecules for Fusion detection, and a threshold of 4 copy number for gene amplifications with an overall panel analytical sensitivity for SNVs 99.2%, INDELs 92.3%, CNVs 97.3%, Fusions 89.1% and MSI 100% while maintaining analytical specificity near 100%. Notable limitations of the test: [employer] requires a normal non-tumor sample for appropriate interpretation of somatic mutations. Silent mutations (mutations that do not result in an amino acid change) are not reported. A minimum of 20% tumor cellularity is required in the sample for mutation analysis. Clinical tumor specimens below 20% tumor cellularity are not optimal for MSI and TMB interpretation and thus Not Reportable . The primary purpose of this panel is to detect somatic mutations in genes involved in oncogenesis of this patient s tumor. The test or the results thereof should not be used to detect germline variants for hereditary cancer syndromes. If a hereditary cancer syndrome is suspected, separate testing of a germline sample should be performed using an appropriate assay. Variants detected below Limits of Detection (LoD) not deemed to be confirmable by independent, orthogonal methods and/or in significant discordance with the tumor cellularity in the tested sample may be excluded as the clinical significance and reliability of such low-level mutation calls is not clear. Variant allelic frequency (VAF) is included for reported sequence variants and reflects the percentage of mutant reads compared to all reads present at the variant position. This number reflects a complex mixture of factors including tumor cellularity, potential CNVs and loss of heterozygosity, and potential subclonality. In addition, strand or allelic bias can significantly impact the measurement of specific variants in any sequencing platform. The clinical utility or meaning of this number in general is not considered established. Linearity of measurement should not be assumed. Copy number assessment by next generation sequencing can be affected by tumor cellularity, amplitude of gene amplification, enrichment of tumor during pre-analytical phase, library preparation methods and analysis algorithms. With 40% tumor content or higher, this test has a specificity of 0.96 and a sensitivity of at least 0.9 for detection of homozygous loss of CDKN2A/CDKN2B and MTAP. False negative results can be obtained in cases with low tumor percentage, low amplicon coverage and/or borderline copy number alterations. The reporting of copy number losses is restricted to CDKN2A/CDKN2B and MTAP. Other genes are not evaluated for copy number loss. This assay cannot reliably identify heterozygous gene losses. Correlation with traditional methods of copy number assessment such as fluorescent in situ hybridization (FISH) is recommended as applicable. False negative fusion results can occur in cases with low fusion DNA molecules, low tumor cellularity, fusions occurring in highly repetitive intronic sequence contexts or fusions where the genomic breakpoint does not span within targeted introns covered by the panel (See Appendix Table 2). The assay requires a minimum of 20% tumor sample cellularity to reduce the potential for false negative results. Correlation with traditional methods of fusion detection such as fluorescent in situ hybridization (FISH) is recommended as applicable. Tumor mutational burden (TMB) is determined by measuring the number of somatic mutations occurring in sequenced genes and specified as a rate (mutations per megabase [mut/Mb]). TMB is calculated for all samples and includes the sum of all somatic synonymous and non-synonymous variants present in the sample at a VAF near LoD and above the noise-level of the assay (after filtering). The number of mutations per megabase may be reported as a nominal number rounded to the closest integer. TMB in cases with low sequence quality cannot be established and may be reported as Not Reportable . The microsatellite instability high (MSI-H) and microsatellite stable (ЕЛЕНА) reported by [facility] is based on the analysis of 40+ informative microsatellite loci. The total number of sites evaluated is dependent on coverage metrics over candidate MSI regions in the paired tumor and normal samples. Microsatellite instability is reported as Undetermined if the sample does not meet the required thresholds to make a MSI-H or ЕЛЕНА call. The thresholds for designating these calls were established by analytical concordance to comparator assays (PCR, IHC and NGS) using a wide selection of tumor tissue types including colorectal and endometrial cancers. Confirmatory testing of microsatellite instability (MSI-PCR, MLH1 promoter methylation) and DNA mismatch repair gene assessment (MMR deficiency) is recommended as applicable for complete evaluation. Correlation with clinicopathologic features and prevalent clinical practice guidelines is recommended for complete evaluation and integration of genomic findings in patient care decisions. Sequencing coverage of the genes: The following table describes the extent and adequacy of coverage for ordered genes only. Covered genes/exons/codons are defined as those having total coverage depth of greater than or equal to 100 KQH-aggeh-flayhmrvy , collapsed reads (minimum 100x coverage). Mutations in ordered genes outside the optimally covered regions listed below may be detected with diminished sensitivity and cannot be ruled out. Coverage information for non-ordered genes for this sample is complex and lengthy, but may be requested from the laboratory if required for clinical care or correlative purposes. Gene Exons (codons) tested ABL1 (NM_005157) 1-11 (1131) ABL2 (NM_005158) 1-12 (11168) ABRAXAS1 (NM_139076) 1-9 (1-410) ACVR1 (NM_[id number]) 3-11 (1-510) ACVR1B (NM_004302) 1-9 (1-506) ACVR2A (NM_001616) 1-11 (1514) ADGRA2 (NM_032777) 1-19 (11339) AJUBA (NM_032876) 1-8 (1539) AKT1 (NM_005163) 2-14 (1-481) AKT2 (NM_001626) 2-14 (1482) AKT3 (NM_005465) 2-14 (1480) AKTIP (NM_022476) 2-10 (1-293) ALK (NM_004304) 1-29 (11621) BFSE63P (NM_001139) 1-15 (1-702) AMER1 (NM_152424) 2 (1-1136) ANKRD11 (NM_013275) 3-8 (1-298), 9 (1906-5041), 9 (298-2337), 9 (3398-2376), 10-13 (5564-9926) APC (NM_000038) 2-16 (1-2844) AR (NM_000044) 1 (1-456), 1-8 (460-921) ARAF (NM_001654) 2-16 (1-607) ARFRP1 (NM_[id number]) 2-8 (1-202) ARID1A (NM_006015) 1-20 (12286) ARID1B (NM_[id number]) 1-20 (12290) ARID2 (NM_152641) 1-21 (11836) ARID5B (NM_032199) 1-6 (1-334), 7-10 (350-1189) ASCC3 (NM_006828) 2-42 (12203) ASPM (NM_018136) 1-28 (13478) ASXL1 (NM_015338) 1-13 (11542) ASXL2 (NM_018263) 1-13 (11436) BREE (NM_000051) 2-63 (13057) ATR (NM_001184) 1-47 (12645) ATRX (NM_000489) 1-14 (11439), 15-20 (9211-4369), 21-35 (9681-4606) AURKA (NM_003600) 2-9 (1-404) AURKB (NM_004217) 2-9 (1-345) AURKC (NM_003160) 2-7 (1-276) AXIN1 (NM_003502) 2-11 (1-863) AXIN2 (NM_004655) 2-11 (1-844) PETE (NM_001699) 1-19 (1-886) B2M (NM_004048) 1-3 (1-120) BAP1 (NM_004656) 1-17 (1-730) BARD1 (NM_000465) 1-11 (1-778) BBC3 (NM_014417) 2-4 (1-194) BCL10 (NM_003921) 1-3 (1-234) BCL11A (NM_022893) 1-4 (1-836) BCL2 (NM_000633) 2-3 (1-240) BCL2L1 (NM_138578) 2-3 (1-234) SBI5J27 (NM_138621) 2-4 (1-199) BCL2L2 (NM_004050) 3-4 (1-194) BCL6 (NM_001706) 3-10 (1-707) BCOR (NM_017745) 2-15 (1-1722) BCORL1 (NM_021946) 1-12 (11712) BCR (NM_004327) 1-23 (11272) BIRC2 (NM_001166) 2-9 (1619) BIRC3 (NM_001165) 2-9 (1605) BLM (NM_000057) 2-22 (1-1418) BMPR1A (NM_004329) 3-13 (1-533) BRAF (NM_004333) 1-18 (1-767) BRCA1 (NM_007294) 2-23 (1-1864) BRCA2 (NM_000059) 2-27 (1-3419) BRD4 (NM_058243) 2-13 (1-776), 13 (782-861), 14 (4135-6034), 14 (861-953), 14 (988-1013), 15-20 (5233-4134) BRIP1 (NM_032043) 2-20 (1-1250) BTG1 (NM_001731) 1-2 (1-172) BTG2 (NM_006763) 1-2 (1-159) BTK (NM_000061) 2-19 (1-660) BUB1 (NM_004336) 1-25 (1-1086) CALR (NM_004343) 1-9 (1-418) CARD11 (NM_032415) 2-25 (1-1155) CASP8 (NM_001228) 3-10 (1-497) CBFB (NM_022845) 1-6 (1-188) CBL (NM_005188) 1-16 (1-907) CCN6 (NM_198239) 1-5 (1-355) CCNA2 (NM_001237) 1-8 (1-433) CCND1 (NM_053056) 1-5 (1-296) CCND2 (NM_001759) 1-5 (1-290) CCND3 (NM_001760) 1-5 (1-293) CCNE1 (NM_001238) 2-12 (1-411) CD274 (NM_014143) 2-7 (1-291) CD276 (NM_001024736) 2-10 (1-535) CD74 (NM_001025159) 1-9 (1-297) CD79A (NM_001783) 1-5 (1-227) CD79B (NM_000626) 1-6 (1-230) CD8A (NM_001768) 1-6 (1-236) CDC20 (NM_001255) 2-11 (1-500) CDC27 (NM_001256) 1-19 (1-825) CDC6 (NM_001254) 2-12 (1-561) CDC73 (NM_024529) 1-17 (1-532) CDH1 (NM_004360) 1-16 (1-883) CDK12 (NM_016507) 1-3 (1-703), 4-14 (710-1491) CDK2 (NM_001798) 1-7 (1-299) CDK4 (NM_000075) 2-8 (1-304) CDK6 (NM_001259) 2-8 (1-327) CDK8 (NM_001260) 1-13 (1-465) CDKN1A (NM_000389) 2-3 (1-165) CDKN1B (NM_004064) 1-2 (1-199) CDKN2A (NM_000077) 1-3 (1-157) CDKN2B (NM_004936) 1-2 (1-139) CDKN2C (NM_001262) 2-3 (1-169) CEBPA (NM_004364) 1 (1-359) CENPA (NM_001809) 1-4 (1-141) CENPE (NM_001813) 1-49 (1-2702) CHAF1A (NM_005483) 1-15 (1-957) CHEK1 (NM_001274) 2-13 (1-477) CHEK2 (NM_007194) 2-15 (1-544) CIC (NM_015125) 1-20 (1-1609) COL2A1 (NM_033150) 1-53 (1-1419) COP1 (NM_022457) 1-20 (1-732) CREBBP (NM_004380) 1-31 (1-2443) CRKL (NM_005207) 1-3 (1-304) CRLF2 (NM_022148) 1-8 (1-263) CSF1R (NM_005211) 2-22 (1973) CSF3R (NM_156039) 3-17 (1-864) CTCF (NM_006565) 3-12 (1-728) CTLA4 (NM_005214) 1-4 (1-224) CTNNA1 (NM_001903) 2-18 (1-907) CTNNB1 (NM_001904) 2-15 (1-782) CUL3 (NM_003590) 1-16 (1769) CUL4A (NM_001008895) 1-20 (1-760) CUL4B (NM_001079872) 1-20 (1896) CUX1 (NM_181552) 1-24 (1-1506) CXCR4 (NM_003467) 1-2 (1-353) CYLD (NM_015247) 4-20 (1957) KVU3H29 (NM_000769) 1-9 (1-491) DAXX (NM_001350) 2-8 (1-741) TQOQE8B (NM_001033855) 1-14 (1-693) GIWS0U9 (NM_020640) 1-7 (1-260) DDB1 (NM_001923) 1-27 (1-1141) DDR1 (NM_013993) 3-19 (1-914) DDR2 (NM_006182) 3-18 (1-856) DDX3X (NM_001356) 1-17 (1663) DICER1 (NM_030621) -29 (11923) DIS3 (NM_014953) 1-21 (1959) DLL3 (NM_203486) 1-9 (1588) DNA2 (NM_001080449) 1-21 (11061) DNAJB1 (NM_006145) 1-3 (1341) DNMT1 (NM_001130823) 1-4 (1-149), 6-41 (165-1633) DNMT3A (NM_022552) 2-23 (913) DNMT3B (NM_006892) 2- (854) DOT1L (NM_032482) 1-28 (11538) E2F3 (NM_001949) 1-7 (1466) EED (NM_003797) 1-12 (1442) EGFL7 (NM_016215) 4-11 (1-274) EGFR (NM_005228) 1-28 (11211) EIF1AX (NM_001412) 1-7 (1-145) EIF4A2 (NM_001967) 1-11 (1-408) EIF4E (NM_001968) 1-7 (1-218) ELF3 (NM_004433) 2-9 (1-372) ELOC (NM_005648) 2-4 (1-113) EMSY (NM_001300943) 2-21 (1-1324) ENO1 (NM_001428) 2-12 (1-435) EP300 (NM_001429) 1-31 (12415) EPCAM (NM_002354) 1-9 (1-315) EPHA2 (NM_004431) 1-17 (1-977) EPHA3 (NM_005233) 1-17 (1-984) EPHA5 (NM_001281766) 1-17 (1-1017) EPHA7 (NM_004440) 1-17 (1-999) EPHB1 (NM_004441) 1-16 (1-985) ERBB2 (NM_004448) 1-27 (1-1256) ERBB3 (NM_001982) 1-28 (1-1343) ERBB4 (NM_005235) 1-28 (1-1309) ERCC1 (NM_202001) 1-8 (1-324) ERCC2 (NM_000400) 1-23 (1-761) ERCC3 (NM_000122) 1-15 (1783) ERCC4 (NM_005236) 1-11 (1917) ERCC5 (NM_000123) 1-15 (11187) ERCC6 (NM_000124) 2-21 (11494) ERG (NM_004449) 3-11 (1-463) ERRFI1 (NM_018948) 2-4 (1-463) ESR1 (NM_000125) 1-8 (1-596) ETV1 (NM_004956) 3-14 (1-478) ETV4 (NM_001986) 2-13 (1-485) ETV5 (NM_004454) 2-7 (1-173), 7-13 (176-511) ETV6 (NM_001987) 1-8 (1-453) EWSR1 (NM_013986) 1-18 (1-662) EXO1 (NM_130398) 4-16 (1-847) EZH2 (NM_004456) 2-20 (1-752) FADD (NM_003824) 1-2 (1-209) FANCA (NM_000135) 1-43 (1-1456) FANCC (NM_000136) 2-15 (1-559) FANCD2 (NM_033084) 2-43 (1-1472) FANCE (NM_021922) 1-10 (1-537) FANCF (NM_022725) 1 (1-375) FANCG (NM_004629) 1-14 (1-623) FANCI (NM_018193) 2-37 (1-1269) FANCL (NM_018062) 1-14 (1-376) FANCM (NM_020937) 1-23 (1-2049) FAS (NM_000043) 1-9 (1-336) FAT1 (NM_005245) 2-27 (1-4589) FBXW7 (NM_033632) 2-12 (1-708) FGF10 (NM_004465) 1-3 (1-209) FGF14 (NM_175929) 1-5 (1-253) FGF19 (NM_005117) 1-3 (1217) FGF23 (NM_020638) 1-3 (1252) FGF3 (NM_005247) 1-3 (1240) FGF4 (NM_002007) 1-3 (1207) FGF5 (NM_004464) 1-3 (1269) FGF6 (NM_020996) 1-3 (1209) FGF9 (NM_002010) 1-3 (1-209) FGFR1 (NM_015850) 2-18 (1-821) FGFR2 (NM_000141) 2-18 (822) FGFR3 (NM_000142) 2-18 (1807) FGFR4 (NM_022963) 1-16 (1763) FH (NM_000143) 1-10 (1-511) FLCN (NM_144997) 4-14 (1-580) FLT1 (NM_002019) 1-30 (11339) FLT3 (NM_004119) 1-24 (1-994) FLT4 (NM_002020) 1-30 (1-1299) FOXA1 (NM_004496) 1-2 (1-473) FOXL2 (NM_023067) 1 (1-377) FOXO1 (NM_002015) 1-2 (1656) FOXP1 (NM_032682) 6-21 (1678) FRS2 (NM_006654) 6-10 (1-509) FTO (NM_001080432) 1-9 (1-506) FUBP1 (NM_003902) 1-20 (1-645) FYN (NM_002037) 4-14 (1-538) GABRA6 (NM_000811) 1-9 (1-454) GGFK24T (NM_001924) 1-4 (1-166) GATA1 (NM_002049) 2-6 (1-414) GATA2 (NM_032638) 2-6 (1-481) GATA3 (NM_001002295) 2-6 (1-445) GATA4 (NM_002052) 2-7 (1-443) GATA6 (NM_005257) 2-7 (1-596) GEN1 (NM_001130009) 2-14 (1-909) GID4 (NM_024052) 1-6 (1-301) GLI1 (NM_005269) 2-12 (1-1107) GNA11 (NM_002067) 1-7 (1-360) GNA13 (NM_006572) 1-4 (1-378) GNAQ (NM_002072) 1-7 (1-360) GNAS (NM_000516) 1-13 (1-395) GPS2 (NM_004489) 2-11 (1-328) GRIN2A (NM_001134407) 2-13 (1-1465) GRM3 (NM_000840) 2-6 (1-880) GSK3B (NM_001146156) 1-11 (1-421) H1-2 (NM_005319) 1 (1-214) H2AX (NM_002105) 1 (1-144) H2BC5 (NM_138720) 1 (1-126) H3-3A (NM_002107) 2-4 (1-128) H3-3B (NM_005324) 2-4 (1-137) H3-4 (NM_003493) 1 (1-137) H3-5 (NM_001013699) 1 (1-136) H3C1 (NM_003529) 1 (1-136) H3C10 (NM_003536) 1 (1-136) H3C11 (NM_003533) 1 (1-137) H3C12 (NM_003535) 1 (1-137) H3C13 (NM_001123375) 1 (1-137) H3C2 (NM_003537) 1 (1-137) H3C3 (NM_003531) 1 (1-136) H3C4 (NM_003530) 2 (1-137) H3C6 (NM_003532) 1 (1-137) H3C7 (NM_021018) 1 (1-137) H3C8 (NM_003534) 1 (1-137) HDAC2 (NM_001527) 1-14 (1-489) HDAC9 (NM_178425) 1-25 (1-1070) HELQ (NM_133636) 1-18 (1-1102) HERC2 (NM_004667) 2 (1-16), 3-27 (25-1390), 28-29 (6478-2582), 30 (0323-0791), 31 (6821-5723), 32-44 (1786-1385), 45 (2569-6934), 46-51 (6749-0811), 53-93 (3139-6316) HFM1 (NM_001017975) 2-39 (1-1436) HGF (NM_000601) 1-18 (1-729) HLA-A (NM_002116) 1-8 (1-366) HNF1A (NM_000545) 1-10 (1-632) HOXB13 (NM_006361) 1-2 (1-285) HRAS (NM_005343) 2-5 (1-190) HSD3B1 (NM_000862) 2-4 (1-374) XFF77XD8 (NM_001017963) 1-12 (1-855) YKP59UZ2 (NM_007355) 2-12 (1-725) ICOSLG (NM_015259) 1-7 (1-303) ID3 (NM_002167) 1-2 (1-120) IDH1 (NM_005896) 3-10 (1-415) IDH2 (NM_002168) 1-11 (1-453) IFNGR1 (NM_000416) 1-7 (1-490) IGF1 (NM_000618) 1-4 (1-154) IGF1R (NM_000875) 1-21 (1-1368) IGF2 (NM_000612) 2-4 (1-181) IKBKE (NM_014002) 3-22 (1-717) IKZF1 (NM_006060) 2-8 (1-520) IL10 (NM_000572) 1-5 (1-179) IL7R (NM_002185) 1-8 (1-460) INHA (NM_002191) 1-2 (1-367) INHBA (NM_002192) 2-3 (1-427) INO80 (NM_017553) 2-36 (1-1557) INPP4A (NM_001134225) 3-25 (1-973) INPP4B (NM_001101669) 4-26 (1925) INSR (NM_000208) 1-22 (1-1383) IRF2 (NM_002199) 2-9 (1-350) IRF4 (NM_002460) 2-9 (1-452) IRS1 (NM_005544) 1 (1-1243) IRS2 (NM_003749) 1-2 (1-1339) JAK1 (NM_002227) 2-25 (1-1155) JAK2 (NM_004972) 3-25 (1-1133) JAK3 (NM_000215) 2-24 (1-1125) SHWETA (NM_002228) 1 (1-332) KAT6A (NM_006766) 2-17 (1-2005) KDM5A (NM_001042603) 1-28 (1-1691) KDM5C (NM_004187) 1-26 (1-1561) KDM6A (NM_021140) 1-29 (1-1402) KDR (NM_002253) 1-3 (1-120), 4-30 (137-1357) KEAP1 (NM_012289) 2-6 (1-625) WEI (NM_000420) 1-19 (1-733) KIT (NM_000222) 1-21 (1-977) KLF4 (NM_004235) 1-5 (1-480) KLHL6 (NM_130446) 1-7 (1-622) KMT2A (NM_005933) 1-36 (1-3970) KMT2B (NM_014727) 1-3 (12-422), 3 (434-628), 3-28 (633-3147), 28-37 (2924-8868) KMT2C (NM_170606) 1-59 (14912) KMT2D (NM_003482) 1-41 (14613), 42-54 (7662-4959) KNSTRN (NM_033286) 1-9 (1-317) KRAS (NM_004985) 2-5 (1-189) LATS1 (NM_004690) 2-8 (1-1131) LATS2 (NM_014572) 2-8 (1-1089) LCK (NM_005356) 2-13 (1-510) LIG4 (NM_002312) 2 (1-912) LMO1 (NM_002315) 1-4 (1-157) LRP1B (NM_018557) 1-25 (1-1390), 26-91 (1514-4955) ELIZABETH (NM_002350) 2-13 (1-513) MAD2L2 (NM_006341) 2-9 (1-212) MAGOH (NM_002370) 1-5 (1-147) MALT1 (NM_173844) 1-2 (1-126), 3-16 (128-814) MAP2K1 (NM_002755) 1-11 (1-394) MAP2K2 (NM_030662) 1-11 (1-401) MAP2K4 (NM_003010) 1-11 (1-400) MAP2K7 (NM_145185) 1-11 (1-420) MAP3K1 (NM_005921) 1-20 (1-1513) GUX5Z11 (NM_004721) 2-14 (1-967) TWL2P72 (NM_003954) 2-17 (1-947) MAP3K4 (NM_005922) 1-27 (1-1609) MAPK1 (NM_002745) 1-8 (1-361) MAPK3 (NM_002746) 1-8 (9-380) MAPK8 (NM_139049) 4-14 (1-428) MAX (NM_002382) 1-5 (1-161) MCL1 (NM_021960) 1-3 (1-351) MDC1 (NM_014641) 2-15 (12090) MDM2 (NM_002392) 1-11 (1498) MDM4 (NM_002393) 2-11 (1491) MED12 (NM_005120) 1-17 (1-801), 18-45 (808-2178) MEF2B (NM_001145785) 2-9 (1-369) MEN1 (NM_130799) 2-10 (1611) MERTK (NM_006343) 1-19 (1-1000) MET (NM_001127500) 2-21 (11409) MGA (NM_001164273) 2-24 (13066) MGMT (NM_002412) 2-5 (1-208) MITF (NM_000248) 1-9 (1-420) MLH1 (NM_000249) 1-19 (1757) MLH3 (NM_001040108) 2-13 (11454) MPL (NM_005373) 1-12 (1636) MRE11 (NM_005590) 2-19 (1681) MSH2 (NM_000251) 1-16 (1-935) MSH3 (NM_002439) 1-24 (11138) MSH6 (NM_000179) 1-10 (1-1361) MST1 (NM_020998) 1-18 (1-726) MST1R (NM_002447) 1-20 (1-1401) MTAP (NM_002451) 1-8 (1-284) MTOR (NM_004958) 2-58 (1-2550) MUTYH (NM_012222) 1-16 (1-547) MXD4 (NM_006454) 1-6 (1-210) MYB (NM_005375) 2-15 (8-641) MYC (NM_002467) 1-3 (1-455) MYCL (NM_005376) 1-2 (1-237) MYCN (NM_005378) 2-3 (1-465) MYD88 (NM_002468) 1-5 (1-297) MYOD1 (NM_002478) 1-3 (1-321) NBN (NM_002485) 1-16 (1-755) NCOA3 (NM_181659) 3-23 (1-1425) NCOR1 (NM_006311) 2-46 (1-2441) NEGR1 (NM_173808) 1-7 (1-355) NF1 (NM_001042492) 1-4 (1-160), 5 (168-184), 6-22 (196-997), 23-58 (0401-9135) NF2 (NM_000268) 1-16 (1-596) NFE2L2 (NM_006164) 1-5 (1-606) NFKBIA (NM_020529) 1-6 (1-318) NHEJ1 (NM_024782) 2-8 (1-300) NKX2-1 (NM_003317) 1-2 (1-372) NKX3-1 (NM_006167) 1-2 (1-235) NOTCH1 (NM_017617) 1-34 (1-2556) NOTCH2 (NM_024408) 1 (1-25), 3-34 (52-2472) NOTCH3 (NM_000435) 1-33 (1-2322) NOTCH4 (NM_004557) 1-30 (1-2004) NPM1 (NM_002520) 1-11 (1-295) NRAS (NM_002524) 2-5 (1-190) NSD1 (NM_022455) 2-23 (1-2697) NSD3 (NM_023034) 2-24 (1-1438) NT5C2 (NM_001351169) 3-19 (1-562) NTRK1 (NM_002529) 1-17 (1-797) NTRK2 (NM_006180) 4-21 (1-839) NTRK3 (NM_002530) 3-19 (1-826) NUP93 (NM_014669) 2-22 (1-820) NUTM1 (NM_001284292) 1-8 (1-1161) PAK1 (NM_002576) 2-15 (1-546) PAK3 (NM_002578) 5-13 (1-321), 14-18 (331-545) PAK5 (NM_177990) 3-10 (1-720) PALB2 (NM_024675) 1-13 (1-1187) PARP1 (NM_001618) 1-23 (1-1015) PARP2 (NM_001042618) 1-16 (1-571) PARP3 (NM_001370240) 2-11 (1-534) PARP4 (NM_006437) 2-33 (1-1660) PARPBP (NM_017915) 2-11 (1-580) PAX5 (NM_016734) 1-10 (1-392) PAXX (NM_183241) 1-7 (1-205) PBRM1 (NM_018313) 2-30 (1-1583) PCNA (NM_182649) 1-6 (1-262) PDCD1 (NM_005018) 1-5 (1-289) FYZE5XZ5 (NM_025239) 2-7 (1-274) PDGFB (NM_002608) 1-6 (1-242) PDGFRA (NM_006206) 2-23 (1-1090) PDGFRB (NM_002609) 2-23 (1-1107) PDK1 (NM_002610) 1-11 (1-437) PER1 (NM_002616) 2-23 (1-1291) PGD (NM_002631) 1-13 (1-484) PGR (NM_000926) 1-8 (1-934) PHF6 (NM_032458) 2-10 (1-366) PHOX2B (NM_003924) 1-3 (1-315) MPT4C8Y (NM_002646) 3-34 (1-1635) ZPV4I6Q (NM_001288772) 2-33 (11487) PIK3C3 (NM_002647) 1-25 (1888) PIK3CA (NM_006218) 2-21 (1-1069) PIK3CB (NM_006219) 3-24 (1-1071) PIK3CD (NM_005026) 3-24 (11045) PIK3CG (NM_002649) 2-11 (-1103) PIK3R1 (NM_181523) 2-16 (725) PIK3R2 (NM_005027) 2-16 (729) PIK3R3 (NM_003629) 1-10 (1462) PIM1 (NM_002648) 1-6 (1-314) PLCG1 (NM_002660) 1-32 (11292) PLCG2 (NM_002661) 2-33 (11266) PLK2 (NM_006622) 1-14 (1686) PMAIP1 (NM_021127) 1-2 (155) PML (NM_033238) 1-9 (883) PMS1 (NM_000534) 2-13 (1933) PMS2 (NM_000535) 1-14 (1-815) PNKP (NM_007254) 2-17 (1-522) PNRC1 (NM_006813) 1-2 (1-328) POLA1 (NM_001330360) 1-3 (1-85), 4-22 (89-821), 23-29 (823-1099), 30-37 (6129-3488) POLD1 (NM_002691) 2-27 (1-1108) POLE (NM_006231) 1-49 (1-2287) POLQ (NM_199420) 1-30 (1-2591) PPARG (NM_015869) 1-7 (1-506) PPM1D (NM_003620) 1-6 (1-606) HDT7Q7T (NM_002711) 1-4 (1-1123) AQP7H6D (NM_014225) 1-15 (1-590) PCJ2R2F (NM_002717) 1-10 (1-448) PPP4R4 (NM_058237) 1-25 (1-874) PPP6C (NM_002721) 1-7 (1-306) PRC1 (NM_003981) 1-15 (1-621) PRDM1 (NM_001198) 1-7 (1-826) PREX2 (NM_024870) 1-40 (1-1607) PRG4 (NM_005807) 2-7 (1-625), 7-13 (650-1405) PJOPH6E (NM_212472) 2-11 (1-382) PRKCI (NM_002740) 1-18 (1-597) PRKDC (NM_006904) 1-87 (1-4128) PRKN (NM_004562) 1-12 (1-466) PTCH1 (NM_000264) 1-23 (1-1448) PTEN (NM_000314) 1-9 (1-404) PTK2 (NM_001352701) 3-36 (1-1097) PTPN11 (NM_002834) 1-15 (1-594) PTPRB (NM_001109754) 1-34 (1-2216) PTPRD (NM_002839) 12-46 (1-1913) PTPRS (NM_002850) 2-38 (1-1949) PTPRT (NM_133170) 1-32 (1-1461) QKI (NM_006775) 1-8 (1-342) RAB35 (NM_006861) 1-6 (1-202) RAC1 (NM_006908) 1-6 (1-193) RAD21 (NM_006265) 2-14 (1-632) RAD50 (NM_005732) 1-25 (1-1313) RAD51 (NM_002875) 2-10 (1-340) IAJ29OY5 (NM_006479) 1-9 (1-336) RAD51B (NM_133509) 2-10 (1-346) RAD51C (NM_002876) 1-2 (1-136) RAD51D (NM_133629) 1-7 (1-217) RAD52 (NM_134424) 2-12 (1-419) RAD54L (NM_003579) 1-18 (1-748) RAF1 (NM_002880) 2-17 (1-649) MARELY (NM_000964) 2-9 (1-463) RASA1 (NM_002890) 1-25 (1-1048) RB1 (NM_000321) 1-14 (1-463), 16-27 (474-929) RBM10 (NM_005676) 2-24 (1-931) RECQL4 (NM_004260) 1-22 (1-1209) REL (NM_002908) 1-8 (1-308), 10-11 (340-620) RET (NM_020975) 1-20 (1-1115) REV3L (NM_001372078) 1-32 (1-3131) RFC1 (NM_002913) 1-25 (1-1148) RFC2 (NM_181471) 1-11 (1-355) RFC3 (NM_002915) 1-9 (1-357) RFC4 (NM_181573) 2-11 (1-364) RFC5 (NM_007370) 1-11 (1-341) RHEB (NM_005614) 1-8 (1-185) RHOA (NM_001664) 2-5 (1-194) RICTOR (NM_152756) 1-38 (1-1709) RIF1 (NM_018151) 2-36 (1-2473) RIT1 (NM_006912) 2-6 (1-220) RMI1 (NM_001358291) 3 (1-626) RMI2 (NM_152308) 1-2 (1-148) RNF43 (NM_017763) 2-10 (1-784) ROS1 (NM_002944) 1-24 (1-1285), 25-43 (8374-6508) RPA1 (NM_002945) 1-17 (1-617) RPA2 (NM_002946) 1-9 (1-271) RPA3 (NM_002947) 5-8 (1-122) RPA4 (NM_013347) 1 (1-262) EHC1AF2 (NM_003942) 1-17 (1-773) FVO2FT1 (NM_003161) 1-15 (1-526) WHH2RZ7 (NM_003952) 1-15 (1-483) RPTOR (NM_020761) 1-34 (1-1336) RSPO1 (NM_001242908) 3-7 (1-264) RSPO2 (NM_178565) 2-6 (1-244) RUNX1 (NM_001754) 2-9 (1-481) DTZK1G7 (NM_175635) 2-11 (1-568) RYBP (NM_012234) 1-4 (1-219) SDHA (NM_004168) 1-15 (1-665) SDHAF2 (NM_017841) 1-4 (1-167) SDHB (NM_003000) 1-8 (1-281) SDHC (NM_003001) 1-6 (1-170) SDHD (NM_003002) 1-4 (1-160) SESN1 (NM_014454) 1-10 (1-552) SETBP1 (NM_015559) 2-6 (1-1597) SETD2 (NM_014159) 1-21 (1-2565) SF3B1 (NM_012433) 1-25 (1-1305) SGK1 (NM_005627) 1-12 (1-432) SH2B3 (NM_005475) 2-8 (1-576) SH2D1A (NM_002351) 1-4 (1-129) SHLD1 (NM_152504) 2-3 (1-206) SHLD2 (NM_001330112) 3 (1-289), 3-6 (348-643), 7-10 (655-905) SHPRH (NM_001042683) 2-30 (1-1684) SHQ1 (NM_018130) 1-11 (1-578) WFY59G0 (NM_006424) 2-13 (1-691) SLIT2 (NM_004787) 1-37 (1-1530) SLX4 (NM_032444) 2-15 (1-1835) SMAD2 (NM_005901) 2-11 (1-468) SMAD3 (NM_005902) 1-9 (1-426) SMAD4 (NM_005359) 2-12 (1-553) SMARCA2 (NM_003070) 2-34 (1-1591) SMARCA4 (NM_003072) 2-35 (1-1648) SMARCAD1 (NM_020159) 2-24 (1-1027) SMARCB1 (NM_003073) 1-9 (1-386) SMARCD1 (NM_003076) 1-13 (1-516) SMC1A (NM_006306) 1-25 (1-1234) SMC3 (NM_005445) 1-29 (1-1218) SMC5 (NM_015110) 1-7 (1-327), 8-25 (329-1102) SMC6 (NM_001142286) 3-28 (1-1092) SMO (NM_005631) 1-12 (1-788) SNCAIP (NM_005460) 2-11 (1-920) SOCS1 (NM_003745) 2 (1-212) SOS1 (NM_005633) 1-23 (1-1334) SOX10 (NM_006941) 2-4 (1-467) SOX17 (NM_022454) 1-2 (1-415) SOX2 (NM_003106) 1 (1-318) SOX9 (NM_000346) 1-3 (1-510) SPEN (NM_015001) 1-15 (1-3665) SPOP (NM_003563) 3-11 (1-375) SRC (NM_005417) 4-14 (1-537) SRSF2 (NM_003016) 1-2 (1-222) SSBP1 (NM_003143) 2-7 (1-149) STAG2 (NM_006603) 2-10 (1-339), 11-15 (348-512), 16-20 (775-699), 21-29 (122-1093), 30-33 (5980-7564) STAT3 (NM_139276) 2-24 (1-771) STAT4 (NM_003151) 2-24 (1-749) STAT5A (NM_003152) 3-7 (1-227), 8-20 (232-795) STAT5B (NM_012448) 2-6 (1-227), 7-19 (230-788) STK11 (NM_000455) 1-9 (1-434) STK19 (NM_004197) 1-7 (1-350) STK40 (NM_001282547) 2-11 (1-436) SUFU (NM_016169) 1-12 (1-485) SUZ12 (NM_015355) 1-3 (1-120), 4-16 (129-740) SYK (NM_003177) 2-14 (1-636) TBC1D4 (NM_014832) 1-21 (1-1299) TBX3 (NM_005996) 1-7 (1-724) TCF3 (NM_003200) 2-19 (1-655) TCF7L2 (NM_030756) 1-14 (1-597) DAMIAN (NM_000459) 1-23 (1-1125) TENT5C (NM_017709) 2 (1-392) TERC (NR_001566) 1 (1-151) TERT (NM_198253) 1-16 (1-1133) TET1 (NM_030625) 2-12 (1-2137) TET2 (NM_001127208) 3-11 (1-2003) TFE3 (NM_006521) 1-10 (1576) TGFB1 (NM_000660) 1-7 (1391) TGFBR1 (NM_004612) 1-9 (1504) TGFBR2 (NM_003242) 1-7 (1-568) MENT352 (NM_017849) 2-4 (1-239) TMPRSS2 (NM_005656) 2-14 (1493) TNF (NM_000594) 1-4 (1234) TNFAIP3 (NM_006290) 2-9 (1791) KLJBKT84 (NM_003820) 1-8 (1284) TOP1 (NM_003286) 1-21 (766) TOP2A (NM_001067) 1-35 (153) TOP3A (NM_004618) 1-19 (1002) TOPBP1 (NM_007027) 2-28 (152) TP53 (NM_000546) 2-11 (394) JY96WI1 (NM_001141980) 1-28 (1978) TP53I3 (NM_004881) 1-5 (333) TP63 (NM_003722) 1-14 (681) TRAF2 (NM_021138) 2-11 (502) TRAF7 (NM_032271) 2-21 (67) ZBONFR81 (NM_024941) 1-13 (418) TSC1 (NM_000368) 3-23 (1165) TSC2 (NM_000548) 2-42 (1808) TSHR (NM_000369) 1-10 (765) TTK (NM_003318) 2-22 (858) TYRO3 (NM_006293) 1-19 (891) U2AF1 (NM_006758) 1-8 (1-241) VEGFA (NM_003376) 1-8 (1396) VHL (NM_000551) 1-3 (1214) VTCN1 (NM_024626) 1-5 (1-283) WRN (NM_000553) 2-35 (1-1433) WT1 (NM_024426) 1-10 (1-523) XIAP (NM_001167) 2-7 (1-498) XPO1 (NM_003400) 2-25 (1-1072) XRCC2 (NM_005431) 1-3 (1-281) XRCC3 (NM_005432) 4-10 (1-347) XRCC4 (NM_022406) 2-8 (1-337) XRCC5 (NM_021141) 1-21 (1-733) XRCC6 (NM_001469) 2-13 (1-610) YAP1 (NM_001130145) 1-9 (1-505) YES1 (NM_005433) 2-12 (1-544) ZFHX3 (NM_006885) 2-10 (1-3704) CIZ640 (NM_006526) 1-4 (1-1049) HDW562 (NM_025069) 1-2 (1-591) ZRSR2 (NM_005089) 1-4 (1-104), 6-11 (134-483) E. APPENDIX Table 1: Covered genes of interest for SNVs, INDELs and CNVs ABL1 BRCA1 CTNNA1 ETV4 GNA13 IRF2 MGMT PAXX PTPN11 SDHC DAMIAN ABL2 BRCA2 CTNNB1 ETV5 GNAQ IRF4 MITF PBRM1 PTPRB SDHD TENT5C ABRAXAS1 BRD4 CUL3 ETV6 GNAS IRS1 MLH1 PCNA PTPRD SESN1 TERC* ACVR1 BRIP1 CUL4A EWSR1 GPS2 IRS2 MLH3 PDCD1 PTPRS SETBP1 TERT^ ACVR1B BTG1* CUL4B EXO1 GRIN2A JAK1 MPL NWKG1ZK4 PTPRT SETD2 TET1 ACVR2A BTG2* CUX1 EZH2 GRM3 JAK2 MRE11 PDGFB QKI SF3B1 TET2 ADGRA2 BTK CXCR4 FADD GSK3B JAK3 MSH2 PDGFRA RAB35 SGK1 TFE3 AJUBA BUB1 CYLD FANCA H1-2* SHWETA MSH3 PDGFRB RAC1 SH2B3 TGFB1 AKT1 CALR [id number] FANCC H2AX* KAT6A MSH6 PDK1 RAD21 SH2D1A TGFBR1 AKT2 CARD11 DAXX FANCD2 H2BC5* KDM5A MST1 PER1 RAD50 SHLD1 TGFBR2 AKT3 CASP8 PMXNV9N FANCE H3-3A* KDM5C MST1R PGD RAD51 SHLD2 VTRE695 AKTIP CBFB GPLP1L0 FANCF H3-3B* KDM6A MTAP PGR [id number] SHPRH TMPRSS2 ALK CBL DDB1 FANCG H3-4* KDR MTOR PHF6 RAD51B SHQ1 TNF VQZD91E CCN6 DDR1 FANCI H3-5* KEAP1 MUTYH PHOX2B RAD51C MRE32A2 TNFAIP3 AMER1 CCNA2 DDR2 FANCL H3C1* WEI MXD4 LZU6L9K RAD51D SLIT2 VZTXNS75 ANKRD11 CCND1 DDX3X FANCM H3C10* KIT MYB BFB8F4T RAD52 SLX4 TOP1 APC CCND2 DICER1 FAS H3C11* KLF4 MYC PIK3C3 RAD54L SMAD2 TOP2A AR CCND3 DIS3 FAT1 H3C12* KLHL6 MYCL PIK3CA RAF1 SMAD3 TOP3A ARAF CCNE1 DLL3 FBXW7 H3C13* KMT2A MYCN PIK3CB MARELY SMAD4 TOPBP1 ARFRP1 CD274 DNA2 FGF10 H3C2* KMT2B MYD88 PIK3CD RASA1 SMARCA2 TP53 ARID1A CD276 DNAJB1 FGF14 H3C3* KMT2C MYOD1 PIK3CG RB1 SMARCA4 PC80NY5 ARID1B CD74 DNMT1 FGF19 H3C4* KMT2D NBN PIK3R1 RBM10 SMARCAD1 TP53I3 ARID2 CD79A DNMT3A FGF23 H3C6* KNSTRN NCOA3 PIK3R2 RECQL4 SMARCB1 TP63 ARID5B CD79B DNMT3B FGF3 H3C7* KRAS NCOR1 PIK3R3 REL SMARCD1 TRAF2 ASCC3 CD8A DOT1L FGF4 H3C8* LATS1 NEGR1 PIM1 RET SMC1A TRAF7 ASPM CDC20 E2F3 FGF5 HDAC2 LATS2 NF1 PLCG1 REV3L SMC3 MWGCWV44 ASXL1 CDC27 EED FGF6 HDAC9 LCK NF2 PLCG2 RFC1 SMC5 TSC1 ASXL2 CDC6 EGFL7 FGF9 HELQ LIG4 NFE2L2 PLK2 RFC2 SMC6 TSC2 BREE CDC73 EGFR FGFR1 HERC2 LMO1 NFKBIA PMAIP1* RFC3 SMO TSHR ATR CDH1 EIF1AX FGFR2 HFM1 LRP1B NHEJ1 PML RFC4 SNCAIP TTK ATRX CDK12 EIF4A2 FGFR3 HGF ELIZABETH NKX2-1 PMS1 RFC5 SOCS1 TYRO3 AURKA CDK2 EIF4E FGFR4 HLA-A MAD2L2 NKX3-1 PMS2 RHEB SOS1 U2AF1 AURKB CDK4 ELF3 FH HNF1A MAGOH NOTCH1 PNKP RHOA SOX10 VEGFA AURKC CDK6 ELOC FLCN HOXB13 MALT1 NOTCH2 PNRC1 RICTOR SOX17 VHL AXIN1 CDK8 EMSY FLT1 HRAS MAP2K1 NOTCH3 POLA1 RIF1 SOX2 VTCN1 AXIN2 CDKN1A ENO1 FLT3 HSD3B1 MAP2K2 NOTCH4 POLD1 RIT1 SOX9 WRN PETE CDKN1B EP300 FLT4 RFQ90KQ2 MAP2K4 NPM1 POLE RMI1 SPEN WT1 B2M CDKN2A EPCAM FOXA1 [id number] MAP2K7 NRAS POLQ RMI2* SPOP XIAP BAP1 CDKN2B EPHA2 FOXL2 ICOSLG MAP3K1 NSD1 PPARG RNF43 SRC XPO1 BARD1 CDKN2C* EPHA3 FOXO1 ID3* [id number] NSD3 PPM1D ROS1 SRSF2 XRCC2 BBC3 CEBPA EPHA5 FOXP1 IDH1 CZU8P76 NT5C2 QKW7V9M RPA1 SSBP1 XRCC3 BCL10 CENPA EPHA7 FRS2 IDH2 MAP3K4 NTRK1 SER7Z9Q RPA2 STAG2 XRCC4 BCL11A CENPE EPHB1 FTO IFNGR1 MAPK1 NTRK2 WIF1I0I RPA3* STAT3 XRCC5 BCL2 CHAF1A ERBB2 FUBP1 IGF1 MAPK3 NTRK3 PPP4R4 RPA4 STAT4 XRCC6 BCL2L1 CHEK1 ERBB3 FYN IGF1R MAPK8 NUP93 PPP6C XLY2MH5 STAT5A YAP1 JBC0G97 CHEK2 ERBB4 GABRA6 IGF2 MAX NUTM1 PRC1 DLK4BU5 STAT5B YES1 BCL2L2* CIC ERCC1 LUTA12T IKBKE MCL1 PAK1 PRDM1 OOP2LU2 STK11 ZFHX3 BCL6 COL2A1 ERCC2 GATA1 IKZF1 MDC1 PAK3 PREX2 RPTOR STK19 GJG496 BCOR COP1 ERCC3 GATA2 IL10 MDM2 PAK5 PRG4 RSPO1 STK40 JCZ663 BCORL1 CREBBP ERCC4 GATA3 IL7R MDM4 PALB2 SOEMA1I RSPO2 SUFU ZRSR2 BCR CRKL ERCC5 GATA4 INHA MED12 PARP1 PRKCI RUNX1 SUZ12 BIRC2 CRLF2 ERCC6 GATA6 INHBA MEF2B PARP2 PRKDC CFBV9Y0 SYK BIRC3 CSF1R ERG GEN1 INO80 MEN1 PARP3 PRKN RYBP TBC1D4 BLM CSF3R ERRFI1 GID4 INPP4A MERTK PARP4 PTCH1 SDHA TBX3 BMPR1A CTCF ESR1 GLI1 INPP4B MET PARPBP PTEN SDHAF2 TCF3 BRAF CTLA4 ETV1 GNA11 INSR MGA PAX5 PTK2 SDHB TCF7L2 *Gene not included for CNV reporting, ^ Includes promoter region, ncRNA Gene Table 2. Genes with select intronic regions for the detection of DNA-based gene rearrangements ALK introns: 18-19 BRCA2 introns: 2 ETV4 introns: 5-6 EZR introns: 9-11 KIT introns: 16 MYB introns: 14 NTRK2 introns: 12 MARELY introns: 2 SDC4 introns: 2 BCR introns: 7-10 CD74 introns: 6-8 ETV5 introns: 6-7 FGFR1 introns: 1,5,17 KMT2A introns: 6-11 MYC introns: 1 NUTM1 introns: 1 RET introns: 7-11 EYU69T5 introns: 4 BRAF introns: 7-10 EGFR introns: 7,15,24-27 ETV6 introns: 5-6 FGFR2 introns: 1,17 MET* introns 13,14 NOTCH2 introns: 26 PDGFRA introns: 7,9,11 ROS1 introns: 31-35 TMPRSS2 introns: 1-3 BRCA1 introns: 2,7-8,12,16,19-20 EML4 introns: 6,13 EWSR1 introns: 7-13 FGFR3 introns: 17 MSH2 introns: 5 NTRK1 introns: 8-10 RAF1 introns: 4-8 RSPO2 introns: 1 *Targeted for MET exon 14 skipping assessment DISCLAIMER: This test was developed and its performance characteristics determined by the [facility] ([facility]) at the [facility]. It has not been cleared by the U.S. Food and Drug Administration. However, such approval is not required for clinical implementation, and the test results on the ordered genes have been shown to be clinically useful. This laboratory is CAP accredited and CLIA certified to perform high complexity molecular testing for clinical purposes. 09/06/2024 3:56 PM CDT [facility] Pathologist Signature . Test performed on 09/05/2024 09/06/2024 3:56 PM CDT [facility] Microsatellite Instability (MSI) by NGS MSI-Stable 09/06/2024 3:56 PM CDT [facility] Tumor Mutational [place] (TMB) 1 mut/Mb 09/06/2024 3:56 PM CDT [facility] Tissue Non-blood Collection / Unknown 08/23/2024 10:46 AM NUCLEAR CHEMISTRY TECHNICIAN 08/23/2024 10:46 AM NUCLEAR CHEMISTRY TECHNICIAN Narrative This result has genomic variants that were not included in this document. us You GUPTA [facility] Fin al Result [facility] [address] [place] [address], MOLECULAR DIAGNOSTICS [facility] [address] [place] [address] * IR US GUIDED BIOPSY LIVER (08/16/2024 11:33 AM NUCLEAR CHEMISTRY TECHNICIAN) Anatomical Region Laterality Modality Abdomen/Pelvis, Organ (liver/spleen/kidney) Computed Tomography, Ultraso und Narrative 08/16/2024 11:56 AM NUCLEAR CHEMISTRY TECHNICIAN Table formatting from the original result was not included. Date of Procedure: 08/16/24 Attending Physician: Keena Johnson MD Rail Operations Controller: None Pre Procedure Diagnosis: Liver mass; Lymphadenopathy Post Procedure Diagnosis: Unchanged Indication: New mass / nodule for tissue diagnosis Protocol Number: N/A Title of Procedure: Percutaneous Ultrasound-Guided Biopsy Operative Findings: Percutaneous image-guided biopsy of 2.3 cm right liver mass. Consent: The procedure, risks, indications and alternatives were explained. All questions were answered and informed consent was obtained. I have reviewed the history and physical dictated by the JIMENA / fellow. Sedation/Anesthesia: Moderate sedation for pain control and anxiety was administered by a dedicated nurse under my supervision. There was continuous monitoring of oxygen saturation, heart rate and intermittent monitoring of blood pressure during the procedure. Medication given was midazolam and fentanyl. I was present for the administration of the medications indicated above. Procedure Events Event Event Time Sedation Start 08/16/2024 11:06 AM Sedation End 08/16/2024 11:23 AM Procedure in Detail: A time out was performed prior to the start of the procedure and the correct patient, procedure, presence of consent, site, and side were confirmed with all members of the team. With the patient in the supine position, the skin overlying the area of interest was prepped and draped in the usual sterile fashion. Lidocaine 1% was used for local anesthesia. Using an anterior approach under Ultrasound image-guidance, a 17 gauge needle was advanced down to the right liver mass. An image was obtained and placed into the medical record. Samples were obtained for evaluation. Sampling: Core Biopsy: An 18 gauge needle used to obtain samples for surgical pathology evaluation. Total number of samples: 4 Specimens Disposition: Diagnostic Biopsy: The biopsy samples were submitted to pathology. Additional Comments: Biopsy tract was embolized with gelfoam . Estimated Blood Loss: Minimal Immediate Complications: None Disposition: PACU Plan: No follow-up with Interventional Radiology required. Candace Pro APRN IMG IR ORDERABLES Final Re sult * Archived Material Retrieval (08/16/2024 11:13 AM NUCLEAR CHEMISTRY TECHNICIAN) Archived Material The test is to be performed on tissue from case [id number]. The case report, slides, and block(s) for the cited accession were retrieved from archives. The pathologist examined the candidate slides and selected case material appropriate to the specifications of the ordered molecular analysis. Unstained sections from the FFPE block, labor service representative H&E slide(s), and/or tumor-mapped smear(s) were prepared and forwarded to the Molecular Diagnostic Laboratory where the subject molecular test will be performed. Results will be reported separately. 08/24/2024 11:30 AM NUCLEAR CHEMISTRY TECHNICIAN [facility] Pathologist Signature 08/24/2024 11:30 AM NUCLEAR CHEMISTRY TECHNICIAN [facility] Tissue 08/16/2024 11:1 3 AM NUCLEAR CHEMISTRY TECHNICIAN 08/24/2024 9:27 AM NUCLEAR CHEMISTRY TECHNICIAN Candace Pro APRN [facility] BI[facility]ARKERS Final Result [facility] [address] [address], [place] * Pathology Biopsy Interpretation (08/16/2024 11:13 AM NUCLEAR CHEMISTRY TECHNICIAN) Addendum 1 Claudin 18 immunosta in is negative. HER2 (clone [id number]) IMMUNOHISTOCHEMISTRY An immunohistochemical stain for HER2 was performed in our lab on a labor service representative formalin-fixed paraffin-embedded section. Interpretation (Score; Interpretation) EQUIVOCAL (score 2+; cancer cell cluster* with a weak to moderate complete, basolateral, or lateral membranous reactivity irrespective of percentage of cancer cells positive) *Cancer cell cluster consists of >=5 neoplastic cells. Intact expression of DNA mismatch repair proteins in tumor by immunohistochemistry. Immunoperoxidase stains were performed with antibodies for the DNA mismatch repair enzymes MLH1, MSH2, MSH6 and PMS2. Intact nuclear expression is evident for all four of these proteins in carcinoma cells and in non-neoplastic cells that serve as internal controls. Therefore, the likelihood of defective DNA mismatch repair/high levels of microsatellite instability (MSI-H) in the tumor is low. Immunohistochemistry is approximately 90-95% sensitive for detection of MSI-H. Most of the MSI-H carcinomas missed by immunohistochemistry occur in patients with Schmitt syndrome/hereditary non-polyposis colorectal cancer (HNPCC) syndrome. 08/25/2024 6:02 PM [facility] Addendum electronically signed by Alonzo Mullen MD on 08/25/2024 at 6:02 PM Submitted Clinical History Liver mass [R16.0] Lymphadenopathy [R59.1] 08/25/2024 6:02 PM NUCLEAR CHEMISTRY TECHNICIAN [facility] Diagnosis A: Liver, liver biopsy: POORLY DIFFERENTIATED ADENOCARCINOMA (SEE COMMENT) 08/25/2024 6:02 PM NUCLEAR CHEMISTRY TECHNICIAN [facility] Comment Immunohistochemical stains were performed at [facility] and show cells of interest are positive for pancytokeratin, cytokeratin 7, cytokeratin 20, CDX2 and negative for synaptophysin, chromogranin, trypsin, p40, NKX3.1, arginase, Hep-par1, and TTF-1. This immunochemical staining profile is nonspecific in term of primary site, but could favor an adenocarcinoma of the pancreaticobiliary system, including intrahepatic cholangiocarcinoma, or a metastasis from the upper gastrointestinal tract. Clinical correlation is recommended. 08/25/2024 6:02 PM NUCLEAR CHEMISTRY TECHNICIAN [facility] Gross Description A: Liver, liver biopsy: 4 cores of cylindrical white-vazquez tissue (0.7-1.9 cm in length x 0.1 cm in diameter), entirely submitted in A1. JLA 08/25/2024 6:02 PM NUCLEAR CHEMISTRY TECHNICIAN [facility] Biomarker Block(s) Block for biomarker testing: A1 Normal block: NA 08/25/2024 6:02 PM NUCLEAR CHEMISTRY TECHNICIAN [facility] Disclaimer "Some tests reported here may have been developed and performance characteristics determined by [facility] Pathology and Laboratory Medicine. These tests have not been specifically cleared or approved by the U.S. Food and Drug Administration. If applicable, controls were reviewed and showed appropriate reactivity." 08/25/2024 6:02 PM NUCLEAR CHEMISTRY TECHNICIAN [facility] Tissue (Liver) 08/16/2024 11 :13 AM NUCLEAR CHEMISTRY TECHNICIAN 08/16/2024 11:52 AM NUCLEAR CHEMISTRY TECHNICIAN us Candace Pro [employer] [facility] PATHOLOGY ORDERABLES E dited Result - Final [address] [address], * Confirm ABORh (08/16/2024 7:56 AM NUCLEAR CHEMISTRY TECHNICIAN) ABORh Confirm O POS 08/16/2024 7:55 AM NUCLEAR CHEMISTRY TECHNICIAN [facility] Blood Peripheral blood specimen / Unknown Venipuncture / Unknown 08/16/2024 7:56 AM NUCLEAR CHEMISTRY TECHNICIAN 08/16/2024 7:56 AM NUCLEAR CHEMISTRY TECHNICIAN Jessica Tai [employer] BLO[facility] TEST ORDERABLES Jeanne l Result [facility] [address] [place] [address] [phone] [place] [address] * CELIAC/SPLANCHNIC PLEXUS NEUROLYTIC BLOCK (08/10/2024 8:02 AM NUCLEAR CHEMISTRY TECHNICIAN) Narrative Shant Christensen MD - 08/10/2024 8:02 AM NUCLEAR CHEMISTRY TECHNICIAN Ruth Adair MD 08/10/2024 9:09 AM Celiac/Splanchnic Plexus Neurolytic Block Laterality (if applicable): bilateral Date/Time: 08/10/2024 8:02 AM Provider Information: Performed by: Ruth Adair MD Authorized by: Courtney Marrufo MD Rail Operations Controller present?: no Patient Diagnosis: Post-operative diagnosis: unchanged Indication: Indications for procedure: to provide therapeutic benefit Anesthesia: Local anesthesia used?: Yes Local anesthetic: lidocaine 1% without epinephrine Sedation: Patient sedated?: patient not sedated Procedure Details: Patient: Bello Elkins Age: 53 y.o. Attending: Shant Herrera MD Date of Visit: August 10, 2024 PAIN MEDICINE CLINIC PROCEDURE NOTE ATTENDING CLINICIAN: Shant Christensen MD SUPERVISOR P[employer]ODUCTS CLINICIAN: Ruth Adair MD PREPROCEDURE DIAGNOSES: 1. Chronic abdominal pain 2. Cancer associated pain POSTPROCEDURE DIAGNOSES: 1. Chronic abdominal pain 2. Cancer associated pain PROCEDURE(S) PERFORMED: 1. Bilateral splanchnic neurolysis 2. Fluoroscopic guidance for the above-named procedure(s) ANESTHESIA: Local. BLOOD LOSS: Minimal. DRAINS AND SPECIMENS: None. COMPLICATIONS: None. INDICATIONS: Bello Elkisn is a 53 y.o. male with an oncological history of newly diagnosed pancreatic cancer presenting with cancer related abdominal pain. The patient stated that the patient was in their usual state of health, denied any recent infections, and denied recent anticoagulant use. Therefore, the plan is for a bilateral splanchnic neurolysis. Procedure Details: The patient was met in the procedure room, where the patient was identified by name, medical record number and date of . All of the patient's last minute questions were answered. Written informed consent was obtained and saved in the electronic medical record, after the risks, benefits, and alternatives were discussed with the patient. A formal time-out procedure was performed by Dr. Shant Christensen MD, as per protocol, including patient name, title of procedure, and site of procedure, and all in the room concurred. Routine monitors were applied. IV access was established and an infusion of 0.9% normal saline was started. The patient was placed in the prone position on the procedure room table. All pressure points were checked and comfortably padded. Routine monitors were placed. Vital signs were stable. A Chloraprep sterile prep of the thoracolumbar area was completed followed by sterile draping per standard procedure. Under AP radiographic guidance, the L1 vertebral body was visualized. Next, using an oblique fluoroscopic view, the L1 transverse process was superimposed over the lateral border of the vertebral body on the right side. The skin and subcutaneous tissue overlying the right lateral border of the L1 vertebral body was marked and infiltrated with 5 mL of 1% Lidocaine using a 25 gauge 1.5 inch needle. Next, a 22 gauge, 5 inch spinal needle was advanced under radiographic guidance. Then, the spinal needle was advanced to contact the lateral aspect of the L1 vertebral body under AP. After the needle was walked off the bone, underlying the lateral radiographic guidance, the needle was gently advanced to reach the anterior border of the vertebral body. Aspiration was negative for blood, air, or CSF. The correct needle placement was confirmed with 1 mL of Omnipaque contrast dye, with appropriate needle adjustments under fluoroscopic guidance as necessary. The same procedure was repeated on the left side. Following negative aspiration and a negative test dose, the patient received a total of 6 mL of 0.25% Bupivicane in multiple divided doses with negative aspiration prior to each dose on each side. After waiting for 5 minutes, motor strength was tested in the bilateral lower extremities, and found to be intact. Then, after negative aspiration, 6 mL of 98% ethyl alcohol was injected in multiple divided doses with negative aspiration prior to each dose on the right and 4 mL of 98% ethyl alcohol was injected in multiple divided doses on the left. The alcohol was injected over the course of 3 minutes on each side. Then, after negative aspiration, 1 mL of 1% Lidocaine was injected during needle withdrawal to prevent back flow of alcohol. The needle was then removed intact. The same procedure was repeated on the left side. Light pressure was held at the puncture site(s) to prevent ecchymosis and oozing. The patient's back was cleansed, and hemostasis was confirmed. Band-aids were applied to the needle injection site(s). The patient tolerated the procedure well. There were no apparent immediate post-procedure complications. The patient's motor function was intact in the bilateral lower extremities. Condition: The patient remained hemodynamically and neurologically stable throughout the procedure. The patient tolerated the procedure well and was monitored for approximately 30 minutes afterward in the post procedure area. There were no immediate post procedure complications noted. The patient's motor function remained intact. The patient was then discharged to home as per protocol. The patient will return for follow up in our outpatient clinic in 1 month(s), or as otherwise clinically indicated. Patient condition stable. The attending, Dr. Shant Christensen MD was present for the entirety of the procedure, and formulated the above assessment and plan. Specimen(s) Removed: Specimen(s) removed: no specimen collected Estimated Blood Loss: Estimated blood loss: none Complications: Complications: none Patient Disposition: Patient disposition: discharge to home Comments: Ruth Adair MD Pain Fellow [facility] Courtney Marrufo MD PROCEDURE/MINOR SURGICAL ORDERAB LES Final Result * Pain Management Fluoroscopy (08/10/2024 8:00 AM NUCLEAR CHEMISTRY TECHNICIAN) Narrative Systemgenerated, Documentation - 08/10/2024 8:00 AM NUCLEAR CHEMISTRY TECHNICIAN This procedure requires no interpretation from the radiologist. Courtney Marrufo MD IMG NON DI ORDERABLES Final Resu lt * CT Chest with Contrast (07/29/2024 8:41 AM NUCLEAR CHEMISTRY TECHNICIAN) Anatomical Region Laterality Modality Chest Computed Tomogra phy 07/29/2024 10:1 7 AM NUCLEAR CHEMISTRY TECHNICIAN Impressions 07/29/2024 10:57 AM NUCLEAR CHEMISTRY TECHNICIAN 1. No evidence of intrathoracic malignancy/metastatic disease 2. 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 Extensive collateral vessels in the abdomen and severe esophageal varices. Encasement and narrowing of the celiac axis and proximal branches and to a lesser degree of the SMA. Regional khanh metastases. Possible right liver lobe metastasis. Small hiatal hernia. ACTIONABLE ITEMS/RECOMMENDATIONS*: None. *An Actionable Finding is a finding that may be unrelated to the original reason for imaging but potentially actionable, meaning further investigation may be necessary. The Actionable Findings Vigilance Unit (AFVU) assists medical providers with responding to additional radiologic findings that are unexpected and potentially actionable. Narrative 07/29/2024 10:57 AM NUCLEAR CHEMISTRY TECHNICIAN FULL RESULT: Examination: CT CHEST W CONTRAST on 07/29/2024 8:41 AM. Clinical History: Mass of pancreas liver mass Lymphadenopathy Indication: Other reason than lung cancer screening, suspected PE, or incidental pulmonary nodule, pancreatic mass, liver mass, lymphadenopathy Comparison: CT abdomen 07/05/2024 from outside institution Technique: CT of the chest is performed with intravenous contrast Findings: Lungs/Airways/Pleura: The lungs are well-expanded and clear. Mild linear atelectasis in the right lower lobe and lingula. No suspicious nodules. Neck/Mediastinum/Nodes/Heart: -Lymph nodes: No intrathoracic, supraclavicular or axillary adenopathy. -Mediastinum/lower neck: Some collateral vessels are noted in the superior mediastinum No thyroid lesions detected. The central airways are unremarkable. Multiple esophageal varices, which extend into the upper esophagus. The esophagus is otherwise normal in appearance. There is a small hiatal hernia -Heart: Normal heart size. Unremarkable pericardium. Normal caliber of the great vessels. Upper abdomen: There is a large indistinct pancreatic body mass with lack of separation fat planes with the posterior wall of the gastric antrum. Extensive collateral circulation/cavernous degeneration of the portal vein with thrombosis suspected at the hilum. There is also infiltration and effacement of the celiac axis, less severe of the SMA. The medial aspect of the splenic vein and superior mesenteric vein are not well-visualized due to the infiltrative lymphadenopathy in the left gastric, celiac axis and diana hepatis stations, which blends in with the mass. A duodenal diverticulum is suspected. There is a 1.9 cm ill-defined hypodensity in the right liver lobe image 129.The spleen, adrenal glands and kidneys appear normal Bones/Soft Tissues: Mild degenerative changes of the spine. No suspicious osseous lesions. The soft tissues appear normal. Procedure Note Jaye Acosta MD - 07/29/2024 FULL RESULT: Examination: CT CHEST W CONTRAST on 07/29/2024 8:41 AM. Clinical History: Mass of pancreas liver mass Lymphadenopathy Indication: Other reason than lung cancer screening, suspected PE, orincidental pulmonary nodule, pancreatic mass, liver mass,lymphadenopathy Comparison: CT abdomen 07/05/2024 from outside institution Technique: CT of the chest is performed with intravenous contrast Findings: Lungs/Airways/Pleura: The lungs are well-expanded and clear. Mild linear atelectasis in theright lower lobe and lingula. No suspicious nodules. Neck/Mediastinum/Nodes/Heart: -Lymph nodes: No intrathoracic, supraclavicular or axillary adenopathy. -Mediastinum/lower neck: Some collateral vessels are noted in the superior mediastinum No thyroid lesions detected. The central airways are unremarkable. Multiple esophageal varices, which extend into the upper esophagus. Theesophagus is otherwise normal in appearance. There is a small hiatalhernia -Heart: Normal heart size. Unremarkable pericardium. Normal caliber of the greatvessels. Upper abdomen: There is a large indistinct pancreatic body mass with lack of separationfat planes with the posterior wall of the gastric antrum. Extensivecollateral circulation/cavernous degeneration of the portal vein withthrombosis suspected at the hilum. There is also infiltration and effacement of the celiac axis, less severeof the SMA. The medial aspect of the splenic vein and superior mesentericvein are not well-visualized due to the infiltrative lymphadenopathy inthe left gastric, celiac axis and diana hepatis stations, which blends inwith the mass. A duodenal diverticulum is suspected. There is a 1.9 cm ill-defined hypodensity in the right liver lobe .The spleen, adrenal glands and kidneys appear normal Bones/Soft Tissues: Mild degenerative changes of the spine. No suspicious osseous lesions. Thesoft tissues appear normal. IMPRESSION: 1. No evidence of intrathoracic malignancy/metastatic disease 2. 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 Regional khanh metastases. Possible right liverlobe metastasis. Small hiatal hernia. ACTIONABLE ITEMS/RECOMMENDATIONS*: None. *An Actionable Finding is a finding that may be unrelated to the originalreason for imaging but potentially actionable, meaning furtherinvestigation may be necessary. The Actionable Findings Vigilance Unit(AFVU) assists medical providers with responding to additional radiologicfindings that are unexpected and potentially actionable. Candace Pro [employer] IMG CT ORDERABLES Final Re sult * AFP (07/28/2024 2:55 PM NUCLEAR CHEMISTRY TECHNICIAN) [facility] Alpha Fetoprotein (AFP) Tumor Marker <2.7 <=8.3 ng/mL 07/28/2024 4:17 PM NUCLEAR CHEMISTRY TECHNICIAN [facility] Blood Peripheral blood specimen / Unknown Venipuncture / Unknown 07/28/2024 2:55 PM NUCLEAR CHEMISTRY TECHNICIAN 07/28/2024 2:57 PM NUCLEAR CHEMISTRY TECHNICIAN Narrative [facility] - 07/28/2024 4:17 PM NUCLEAR CHEMISTRY TECHNICIAN Results greater than 45,875.00 ng/mL may not be reliable due to matrix effect with extended dilution as it exceeds the can runner's recommended limit. Caution should be exercised when interpreting such values and done in conjunction with clinical context. This test is measured by electrochemiluminescence immunoassay on Yam[employer] Madiha immunoassay analyzers. Results obtained in different methods are not interchangeable. us Sulema Funk MD LAB BLOOD ORDERABLES Final Res ult Performing Organization Address City/[facility]/ZIP Co de Phone Number [facility] Unless otherwise noted, all lab tests performed by: Division of Pathology and Laboratory Medicine [address] [place] [id number] * Hepatitis B Surface Antibody (07/28/2024 2:55 PM NUCLEAR CHEMISTRY TECHNICIAN) [facility] HBsAb Non Reactive 07/28/2024 4:20 PM NUCLEAR CHEMISTRY TECHNICIAN [facility] Blood Peripheral blood specimen / Unknown Venipuncture / Unknown 07/28/2024 2:55 PM NUCLEAR CHEMISTRY TECHNICIAN 07/28/2024 2:57 PM NUCLEAR CHEMISTRY TECHNICIAN Narrative [facility] - 07/28/2024 4:20 PM NUCLEAR CHEMISTRY TECHNICIAN Vaccinated individual: Reactive Unvaccinated individual: Non-Reactive us Sulema Funk MD LAB BLOOD ORDERABLES Final Res ult [facility] Unless otherwise noted, all lab tests performed by: Division of Pathology and Laboratory Medicine [address] [place] [id number] * Lipase Level (07/28/2024 2:55 PM NUCLEAR CHEMISTRY TECHNICIAN) [facility] Lipase Level 21 13 - 60 U/L 07/28/2024 3:50 PM NUCLEAR CHEMISTRY TECHNICIAN [facility] Blood Peripheral blood specimen / Unknown Venipuncture / Unknown 07/28/2024 2:55 PM NUCLEAR CHEMISTRY TECHNICIAN 07/28/2024 2:57 PM NUCLEAR CHEMISTRY TECHNICIAN Narrative [facility] - 07/28/2024 3:50 PM NUCLEAR CHEMISTRY TECHNICIAN Reference range established based on adult population Sulema Funk MD LAB BLOOD ORDERABLES Final Res ult [facility] Unless otherwise noted, all lab tests performed by: Division of Pathology and Laboratory Medicine [address] [place] [id number] * (ABNORMAL) CEA (07/28/2024 2:55 PM NUCLEAR CHEMISTRY TECHNICIAN) [facility] Carcinoembryonic Antigen 64.9(H) <=3.8 ng/mL 07/28/2024 4:17 PM NUCLEAR CHEMISTRY TECHNICIAN [facility] Blood Peripheral blood specimen / Unknown Venipuncture / Unknown 07/28/2024 2:55 PM NUCLEAR CHEMISTRY TECHNICIAN 07/28/2024 2:57 PM NUCLEAR CHEMISTRY TECHNICIAN Narrative [facility] - 07/28/2024 4:17 PM NUCLEAR CHEMISTRY TECHNICIAN Reference Ranges (age 20-69 years): Non-smoker: <= 3.8 ng/mL Smoker: <= 5.5 ng/mL This test is measured by electrochemiluminescence immunoassay on Braul[employer] Madiha immunoassay analyzers. Results obtained in different methods are not interchangeable. us Sulema Funk MD LAB BLOOD ORDERABLES Final Res ult [facility] Unless otherwise noted, all lab tests performed by: Division of Pathology and Laboratory Medicine [address] [place] [id number] * Beta 2 Microglobulin (07/28/2024 2:55 PM NUCLEAR CHEMISTRY TECHNICIAN) [facility] Beta 2 Microglobulin 1.40 0.80 - 2.30 mg/L 07/28/2024 6:00 PM NUCLEAR CHEMISTRY TECHNICIAN [facility] Blood Peripheral blood specimen / Unknown Venipuncture / Unknown 07/28/2024 2:55 PM NUCLEAR CHEMISTRY TECHNICIAN 07/28/2024 2:57 PM NUCLEAR CHEMISTRY TECHNICIAN Narrative [facility] - 07/28/2024 6:00 PM NUCLEAR CHEMISTRY TECHNICIAN This test is measured by turbidimetric methodology on The [employer] Optilite analyzer. Results obtained in different methods are not interchangeable. us Sulema Funk MD LAB BLOOD ORDERABLES Final Res ult Performing Organization Address [facility] Co de Phone Number [facility] Unless otherwise noted, all lab tests performed by: Division of Pathology and Laboratory Medicine [address] [place] [id number] * Amylase Level (07/28/2024 2:55 PM NUCLEAR CHEMISTRY TECHNICIAN) Amylase Level 64 28 - 100 U/L 07/28/2024 3:50 PM NUCLEAR CHEMISTRY TECHNICIAN [facility] Blood Peripheral blood specimen / Unknown Venipuncture / Unknown 07/28/2024 2:55 PM NUCLEAR CHEMISTRY TECHNICIAN 07/28/2024 2:57 PM NUCLEAR CHEMISTRY TECHNICIAN us Sulema Funk MD LAB BLOOD ORDERABLES Final Res ult Performing Organization Address [facility] de Phone Number [facility] Unless otherwise noted, all lab tests performed by: Division of Pathology and Laboratory Medicine [address] [place] [id number] * OSI CT Abdomen and Pelvis (07/05/2024 2:06 PM NUCLEAR CHEMISTRY TECHNICIAN) Narrative Systemgenerated, Documentation - 07/28/2024 2:06 PM NUCLEAR CHEMISTRY TECHNICIAN Study acquired at another institution. For comparison only. No [facility] interpretation requested or available. Result Josué Funk MD IMG OUTSIDE IMAGE ORDERABLES F inal Result after 09/14/2023 Insurance [employer] O POS [facility] Address: [address] [address] Care [employer] Teacher Relationship Specialty Start Date End Date Hosea Ayers MD [address] [place] [id number] [email or web address] PCP - External Primary Care Provider Internal Medicine 07/13/24 Sulema Funk MD [address] [place] [phone] [email or web address] PCP - General Internal Medicine 07/13/24 08/25/24 Vidhi Davidson MD [address] [place] [phone] [email or web address] PCP - General Gastrointestinal Medical Oncology 08/26/24 Sergio Magallanes, RN [address] [place] [id number] [phone] [email or web address] Intake Nurse Navigator Nursing 07/13/24 07/25/24 Courtney Marrufo MD [address] [place] [address] [phone] [email or web address] Consulting Physician Pain Management 08/03/24 Jessica Tai APRN [address] [place] [address] [phone] [email or web address] Practitioner Interventional Radiology 08/15/24 Vidhi Davidson MD [address] [place] [phone] [email or web address] Consulting Physician Gastrointestinal Medical Oncology 08/23/24
[2024-09-13] MEDS ORDERED: FLEET ENEMA ADULT PR ONE ×2 (11:19→14:11)
[2024-09-13] MEDS ORDERED: NA CHLORIDE 0.9% 1,000 ML ONE (11:19)
[2024-09-13 11:38] LABS: Absolute Lymphocytes (CBC) 0.8 K/uL (0.7-4.9); Absolute Monocytes 0.3 K/uL (0.1-1.3); Absolute Neutrophil 4.1 K/uL (1.8-8.0); Basophils % 0.2 % (0-1.3); Eosinophils % 0.8 % (0-4.4); Hematocrit 31.1 % (39.6-49.0); Hemoglobin 10.5 g/dL (13.6-17.9); Lymphocytes % 14.5 % (15.3-44.8); MCH 28.9 pg (27.0-35.0); MCHC 33.8 g/dL (32.0-36.0); MCV 85.5 fL (80-100); MPV 8.1 fL (7.6-11.3); Monocytes % 6.3 % (3.3-12.3); Neutrophils % 78.2 % (41.7-73.7); Platelets 165 thou/uL (152-406); RBC Red Blood Cell Count 3.64 M/uL (4.33-5.43); Red Cell Distribution Width 13.8 % (12.1-15.2)
[2024-09-13 11:52] LABS: Albumin 3.7 g/dL (3.4-5.0); Albumin/Globulin Ratio 1.1 (1.1-1.8); Anion Gap 6.8 mEq/L (5.0-15.0); Bilirubin Total 0.5 mg/dL (0.2-1.0); Globulin 3.3 g/dL (2.3-3.5); Potassium 3.8 mEq/L (3.5-5.1)
[2024-09-13] MEDS ORDERED: GLYCERIN ADULT SUPP PR ONE (12:00)
--- NOTE | 2024-09-13 13:46 | RAD REPORT ---
EXAMINATION: CT Abdomen Pelvis W Contrast CLINICAL INDICATION: Male, 54 years old. Constipation;Abd pain TECHNIQUE: CT abdomen and pelvis was performed, after the administration of IV contrast, as per [facility] protocol. Axial, sagittal and coronal reconstructions were obtained. One or more of the following dose reduction techniques were used: Automated exposure control, adjustment of the mA and k V according to patient size, and iterative reconstruction. Unless otherwise specified, incidental findings do not require dedicated imaging follow-up. COMPARISON: 03/12/2020 FINDINGS: LOWER CHEST: The visualized lung bases are clear. Elevation the right hemidiaphragm LIVER: Peripheral hypoattenuating right lobe lesion with overlying mild capsular depression, measurin g 2.2 x 1.4 cm. Surrounding geographic region of hyperenhancement. Portal vein appears chronically occluded, with cavernous transformation, and portosystemic shunting along the cardiac region and grea ter trochanter of the stomach, and along the left flank. BILIARY SYSTEM: Marked distention of the gallbladder No other suspicious abnormalities. SPLEEN: Normal size. No focal lesion. PANCREAS: Large mass centered on the pancreatic body, measuring 6.5 x 5.5 cm in greatest axial dimens ions. The celiac axis courses within the mass, showing narrowing and luminal irregularity. Superior mesenteric artery courses along the right lateral/posterior margin of the mass, with mass tissue enco mpassing at least 180 degrees of its circumference, also narrowing artery distally. The SMV show sequelae of chronic thrombosis with sluggish flow most distally. ADRENALS: Normal; no mass. KIDNEYS: Normal size and contour. No hydronephrosis. Left interpolar 1.6 cm fluid density cyst. URINARY BLADDER: Unremarkable. GASTROINTESTINAL TRACT: Large stool burden in the rectum. Moderate sliding hiatal hernia No evidence of free air, significant intra-abdominal free fluid, bowel obstruction or abscess. APPENDIX: Normal appendix. LYMPH NODES: No lymphadenopathy. MUSCULOSKELETAL: No acute or suspicious osseous abnormality. ADDITIONAL FINDINGS: None. IMPRESSION: Large mass centered on the pancreatic body measuring up to 6.5 cm, compatible with known malignancy. The mass encases the celiac axis and partially encases the SMA, with decrease in minimal narrowing as above. 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 Peripheral hypoattenuating right lobe lesion with overlying mild capsular depression, measuring 2.2 x 1.4 cm, could represent a metastatic lesion. Large stool burden within the rectum. Other incidental findings as above.
--- NOTE | 2024-09-13 15:07 | EDPHYS ---
Physician Documentation [facility] Name: Bello Elkins Age: 54 yrs Sex: Male : 1970 Arrival Date: 09/13/2024 Time: 10:57 Bed 4 Private MD: ED Physician Juan Tran HPI: 09/13 13:22 This 54 yrs old Male presents to ER via Ambulatory with complaints of rn Abdominal Pain, Constipation. 13:22 The patient presents with abdominal pain in the lower abdomen. rn 13:23 Onset: The symptoms/episode began/occurred 2 day(s) ago. The symptoms do not radiate. rn Associated signs and symptoms: Pertinent positives: constipation, Pertinent negatives: blood in stools, fever. The symptoms are described as crampy. Modifying factors: The symptoms are alleviated by nothing, the symptoms are aggravated by nothing. Severity of pain: At its worst the pain was mild in the emergency department the pain is unchanged. Patient reports constipation for 2 days, is passing small pellets, associated with lower abdominal cramping. No fever or chills. Patient recent diagnosis of pancreatic cancer and started Tylenol with codeine which coincides with his constipation and bowel symptoms.. Historical: - PMHx: 11:08 GERD; Hernia; iw - Immunization history:: Adult Immunizations unknown. - Infectious Disease History:: Denies. - Family history:: not pertinent. - Social history:: Smoking status: unknown. - Hospitalizations: : No recent hospitalization is reported. ROS: 13:23 Constitutional: Negative for fever, chills, and weight loss, Cardiovascular: Negative rn for chest pain, palpitations, and edema, Respiratory: Negative for shortness of breath, cough, wheezing, and pleuritic chest pain, Abdomen/GI: Positive for abdominal pain and constipation MS/Extremity: Negative for injury and deformity, Skin: Negative for injury, rash, and discoloration, Neuro: Negative for headache, weakness, numbness, tingling, and seizure, Exam: 13:23 Constitutional: This is a well developed, well nourished patient who is awake, alert, rn and in no acute distress. ENT: Dry mucous membranes Cardiovascular: Regular rate and rhythm. No pulse deficits. Respiratory: No increased work of breathing, no retractions or nasal flaring. Abdomen/GI: Soft, no peritoneal signs, mild left lower quadrant tenderness without guarding Vital Signs: 11:07 BP 125 / 80; Pulse 88; Resp 16; iw 11:20 BP 139 / 92; Pulse 86; Resp 16; Temp 98.6; Pulse Ox 100% on R/A; Weight 62.6 kg; Height cm10 5 ft. 10 in. ; Pain 8/10; 15:39 BP 133 / 82; Pulse 103; Resp 18; Pulse Ox 100% on R/A; cm10 11:20 Body Mass Index 19.80 (62.60 kg, 177.8 cm) cm10 11:20 Pain Scale: Adult cm10 MDM: 11:04 Medical Screening Exam initiated rn 15:05 Differential diagnosis: Fecal impaction, bowel obstruction, worsening cancer. Data rn reviewed: vital signs, nurses notes, lab test result(s), radiologic studies, CT scan, and as a result, I will discharge patient. Counseling: I had a detailed discussion with the patient and/or guardian regarding the historical points, exam findings, and any diagnostic results supporting the discharge/admit diagnosis, lab results, radiology results, the need for outpatient follow up, to return to the emergency department if symptoms worsen or persist or if there are any questions or concerns that arise at home. Response to treatment: the patient's symptoms have markedly improved after treatment, and as a result, I will discharge patient. Special discussion: I discussed with the patient/guardian in detail that at this point there is no indication for admission to the hospital. It is understood, however, that if the symptoms persist or worsen the patient needs to return immediately for re-evaluation. Based on the history and exam findings, there is no indication for further emergent testing or inpatient evaluation. I discussed with the patient/guardian the need to see the primary care provider for further evaluation of the symptoms. ED course: Patient with good response to enemas, finally had large amount of stool passed with some relief. Patient still has moderate stool burden but fecal impaction has resolved. Patient feels better and will be discharged home. CT showed enlarged bladder per my interpretation, question patient and he states he can urinate without difficulty and not experiencing any retention. Other findings of cancer have been none and has recent diagnosis, is going to initiate therapy soon. Results went over with patient and family.. 09/13 11:14 Order name: CBC with Diff; Complete Time: 12:52 rn 09/13 11:14 Order name: CMP; Complete Time: 12:52 rn 09/13 11:14 Order name: Lipase; Complete Time: 12:52 rn 09/13 11:14 Order name: CT Abd/Pelvis - IV Contrast Only; Complete Time: 13:55 rn 09/13 11:14 Order name: IV Saline Lock; Complete Time: 11:33 rn 09/13 11:14 Order name: Labs collected and sent; Complete Time: 11:33 rn Administered Medications: 11:33 Drug: NS 0.9% IV 1000 ml IV at 1 bolus Per protocol; to be given as a bolus over 60 cm10 minutes Route: IV; Rate: 1 bolus; Site: right forearm; 12:11 Follow up: Response: No adverse reaction; IV Status: Completed infusion; IV Intake: cm10 1000ml 11:33 Drug: Glycerin (Adult) NV Suppository 1 supp NV once Route: NV; cm10 12:03 Follow up: Response: No adverse reaction; No change in condition cm10 13:01 Drug: Fleet Enema NV 133 ml NV once; may repeat once Route: NV; cm10 13:31 Follow up: Response: No adverse reaction; No change in condition cm10 14:34 Drug: Fleet Enema NV 133 ml NV once Route: NV; cm10 15:03 Follow up: Response: No adverse reaction; Marked relief of symptoms cm10 Disposition Summary: 09/13/24 15:07 Discharge Ordered Notes: Location: Home rn Problem: new rn Symptoms: have improved rn Condition: Stable rn Diagnosis - Fecal impaction rn Followup: rn - With: Private Physician - When: As needed - Reason: Recheck today's complaints, Re-evaluation by your physician Discharge Instructions: - Discharge Summary Sheet rn - Fecal Impaction rn Forms: - Medication Reconciliation Form rn - Antibiotic iv rn - Prescription Opioid Use rn - Patient Portal Instructions rn - Leadership Thank You Letter rn Signatures: Dispatcher [employer] Reshma Russell, RN Juan Celeste MD MD rn Campbell, Kaitlyn, RN RN [id number] Urvashi Garcia RN RN cm10
--- NOTE | 2024-09-13 15:07 | ER ---
Nurse's Notes [facility] Name: Bello Elkins Age: 54 yrs Sex: Male : 1970 Arrival Date: 09/13/2024 Time: 10:57 Bed 4 Private MD: Diagnosis: Fecal impaction Presentation: 09/13 11:06 Chief complaint: Patient states: feel like he is impacted, if on pain meds for iw pancreatic cancer , last BM was 2 days ago and just small pellets. Coronavirus screen: At this time, the client does not indicate any symptoms associated with coronavirus-19. Initial Sepsis Screen: Does the patient meet any 2 criteria? No. Patient's initial sepsis screen is negative. Does the patient have a suspected source of infection? No. Patient's initial sepsis screen is negative. 11:06 Method Of Arrival: Ambulatory iw 11:06 Acuity: VEENA 3 iw 11:07 Ebola Screen: No symptoms or risks identified at this time. iw 15:41 Risk Assessment: Do you want to hurt yourself or someone else? Patient reports no cm10 desire to harm self or others. Onset of symptoms was September 13, 2024. Historical: - PMHx: 11:08 GERD; Hernia; iw - Immunization history:: Adult Immunizations unknown. - Infectious Disease History:: Denies. - Family history:: not pertinent. - Social history:: Smoking status: unknown. - Hospitalizations: : No recent hospitalization is reported. Screenin:35 [facility] ED Fall Risk Assessment (Adult) History of falling in the last 3 months, cm10 including since admission No falls in past 3 months (0 pts) Confusion or Disorientation No (0 pts) Intoxicated or Sedated No (0 pts) Impaired Gait No (0 pts) Mobility Assist Device Used No (0 pt) Altered Elimination No (0 pt) Score/Fall Risk Level 0 - 2 = Low Risk Oriented to surroundings, Maintained a safe environment, Hourly rounding (assess needs \T\ fall precautionary measures) done. Abuse screen: Denies threats or abuse. Denies injuries from another. Nutritional screening: No deficits noted. Tuberculosis screening: No symptoms or risk factors identified. Assessment: 11:34 General: Appears in no apparent distress. uncomfortable, Behavior is calm, cooperative. cm10 Pain: Complains of pain in abdomen Pain currently is 8 out of 10 on a pain scale. Neuro: No deficits noted. Level of Consciousness is awake, alert, obeys commands, Oriented to person, place, time, situation, Appropriate for age. Respiratory: No deficits noted. Airway is patent Respiratory effort is even, unlabored, Respiratory pattern is regular, symmetrical. GI: Bowel sounds present X 4 quads. Abd is soft Reports constipation. Derm: Skin is pink, warm \T\ dry. Musculoskeletal: No deficits noted. Range of motion: intact in all extremities. 12:10 Reassessment: PT AMBULATING TO RESTROOM AT THIS TIME. cm10 13:15 Reassessment: PT ON BEDSIDE COMMODE AT THIS TIME. cm10 14:34 Reassessment: 2ND ENEMA ADMINISTERED AT THIS TIME. cm10 15:03 Reassessment: PT NOTED TO HAVE HAD BM. cm10 Vital Signs: 11:07 BP 125 / 80; Pulse 88; Resp 16; iw 11:20 BP 139 / 92; Pulse 86; Resp 16; Temp 98.6; Pulse Ox 100% on R/A; Weight 62.6 kg; Height cm10 5 ft. 10 in. ; Pain 8/10; 15:39 BP 133 / 82; Pulse 103; Resp 18; Pulse Ox 100% on R/A; cm10 11:20 Body Mass Index 19.80 (62.60 kg, 177.8 cm) cm10 11:20 Pain Scale: Adult cm10 ED Course: 11:01 Patient arrived in ED. cj3 11:04 Juan Tran MD is Attending Physician. rn 11:07 Triage completed. iw 11:16 Urvashi Garcia, RN is Primary Nurse. cm10 11:32 Initial lab(s) drawn, by me, sent to lab. Inserted saline lock: 20 gauge in right cm10 wrist, using aseptic technique. Blood collected. Flushed with 10 mL NS. 11:33 CBC with Diff Sent. cm10 11:33 CMP Sent. cm10 11:33 Lipase Sent. cm10 11:34 Arm band placed on right wrist. Patient placed in an exam room, on a stretcher. cm10 11:34 Patient has correct armband on for positive identification. Placed in gown. Bed in low cm10 position. Call light in reach. Side rails up X2. Pulse ox on. NIBP on. Warm blanket given. 12:[address] via wheelchair. cm10 12:43 CT Abd/Pelvis - IV Contrast Only In Process Unspecified. EDMS 15:39 Provided Education on: FOLLOW-UP INSTRUCTIONS. cm10 15:41 No provider procedures requiring assistance completed. IV discontinued, intact, cm10 bleeding controlled, No redness/swelling at site. Pressure dressing applied. Administered Medications: 11:33 Drug: NS 0.9% IV 1000 ml IV at 1 bolus Per protocol; to be given as a bolus over 60 cm10 minutes Route: IV; Rate: 1 bolus; Site: right forearm; 12:11 Follow up: Response: No adverse reaction; IV Status: Completed infusion; IV Intake: cm10 1000ml 11:33 Drug: Glycerin (Adult) ND Suppository 1 supp ND once Route: ND; cm10 12:03 Follow up: Response: No adverse reaction; No change in condition cm10 13:01 Drug: Fleet Enema ND 133 ml ND once; may repeat once Route: ND; cm10 13:31 Follow up: Response: No adverse reaction; No change in condition cm10 14:34 Drug: Fleet Enema ND 133 ml ND once Route: ND; cm10 15:03 Follow up: Response: No adverse reaction; Marked relief of symptoms cm10 Medication: 11:35 VIS not applicable for this client. cm10 Intake: 12:11 IV: 1000ml; Total: 1000ml. cm10 Outcome: 15:07 Discharge ordered by . rn 15:41 Discharged to home via wheelchair, with family, with significant other, cm10 15:41 Condition: good 15:41 Discharge instructions given to patient, significant other, Instructed on discharge instructions, follow up and referral plans. Demonstrated understanding of instructions, follow-up care, 15:41 Patient left the ED. cm10 Signatures: Dispatcher [employer] EDMS Reshma Hebert RN RN iw Juan Tran MD MD rn Martinez, Clarissa, RN RN cm10 Johnson, Celeste 3 Corrections: (The following items were deleted from the chart) 11:07 11:06 Chief complaint: Patient states: feel like he is impacted, if on pain meds for iw pancreatic cancer iw
[2024-09-13 16:14] VITALS: TEMP 98.6; O2SAT 100
[2024-09-13 16:15] VITALS: BP 133/82
== END 2024-09-13 15:41 | disposition home or self-care (01) ==
LOC: ER 10:57
DX: K56.41 Fecal impaction (principal)
CPT/HCPCS: 85025; 36415; 83690; 80053; 74177; 96360; 99285; Q9967; J7030